=== PATIENT | female | born 1935 | race Caucasian/White ===

== ENCOUNTER → 2020-11-11 16:19 | Outpatient (CLI) | payer OTHER, SELFPAY ==
[2020-11-11 19:11] LABS: ALB/GLOB Ratio 1.1 RATIO (0.9-2.4); AST(SGOT) 25 U/L (15-37); Alanine Aminotransfer ALT/SGPT 29 U/L (13-56); Alkaline Phosphatase 103 U/L (45-117); Anion Gap 6 (5-15); BUN 23 mg/dL (7-18); BUN/Creat Ratio 20.5 RATIO (10-20); Calcium,Total 9.2 mg/dL (8.5-10.1); Chloride 106 mmol/L (98-107); Creatinine, Serum 1.12 mg/dL (0.55-1.02); EST Glomerular Filtration Rate 49 mL/min (>60); Est Glom Filt Rate - Afr Amer 60 mL/min (>60); Globulin 3.7 g/dL (2.2-4.2); Glucose 100 mg/dL (74-106); Potassium 4.2 mmol/L (3.5-5.1); Protein, Total 7.7 g/dL (6.4-8.2); Sodium Level 140 mmol/L (136-145); Thyroid Stim Hormone (TSH) 1.71 uIU/mL (0.358-3.74); Vitamin D,25 Hydroxy 28.8 ng/mL
[2020-11-11 19:42] LABS: Absolute Lymphocyte Count 3.37 X10^3/uL (0.83-4.51); Absolute Neutrophil Count 3.3 X10^3/uL (2.0-7.7); Basophil# 0.08 X10^3/uL; Eosinophils% 2.6 % (0-5); Hematocrit 40.1 % (37-47); Hemoglobin 12.4 g/dL (12.0-15.0); Lymphocyte # 3.37 X10^3/ul (0.83-4.51); Lymphocyte % 43.7 % (19-41); Mean Corp Hgb Conc 30.9 g/dL (32-36); Mean Corpuscular Hgb 28.8 pg (27.0-32.0); Mean Platelet Vol. 10.8 fl (6.2-12.0); Monocyte# 0.73 X10^3/uL; Monocyte% 9.5 % (0-10); NRBC Flagged by Analyzer 0 % (0-5); Neutrophil # 3.31 X10^3/uL (2.7-7.7); Neutrophil % 42.8 % (47-70); Platelet Count 274 K/mm3 (150-450); RBC Distribution Width CV 14.8 % (11.6-14.6); Red Blood Count 4.31 M/mm3 (4.2-5.4); White Blood Count 7.7 K/mm3 (4.4-11.0)
== END ==
PROVIDERS: Visit Provider Family Medicine Geriatric Medicine
DX: E55.9 Vitamin D deficiency, unspecified (principal); R53.83 Other fatigue
CPT/HCPCS: 36415; 80053; 82306; 84443; 85025

== ENCOUNTER → 2021-02-12 15:11 | Outpatient (CLI) | payer OTHER, SELFPAY ==
[2021-02-12 17:20] LABS: Absolute Lymphocyte Count 2.96 X10^3/uL (0.83-4.51); Absolute Neutrophil Count 3.4 X10^3/uL (2.0-7.7); Basophil# 0.06 X10^3/uL; Basophil% 0.8 % (0-1); Eosinophil# 0.22 X10^3/uL; Hematocrit 37.1 % (37-47); Lymphocyte # 2.96 X10^3/ul (0.83-4.51); Lymphocyte % 40.3 % (19-41); Mean Corp Hgb Conc 32.3 g/dL (32-36); Mean Corpuscular Hgb 30.2 pg (27.0-32.0); Mean Corpuscular Volume 93.2 fL (81-99); Mean Platelet Vol. 11.2 fl (6.2-12.0); Monocyte# 0.67 X10^3/uL; Monocyte% 9.1 % (0-10); NRBC Flagged by Analyzer 0 % (0-5); Neutrophil # 3.43 X10^3/uL (2.7-7.7); Neutrophil % 46.7 % (47-70); Platelet Count 217 K/mm3 (150-450); RBC Distribution Width CV 14.3 % (11.6-14.6); RBC Distribution Width SD 48.6 fl (35.1-43.9); Red Blood Count 3.98 M/mm3 (4.2-5.4); White Blood Count 7.4 K/mm3 (4.4-11.0)
[2021-02-12 17:51] LABS: ALB/GLOB Ratio 0.9 RATIO (0.9-2.4); AST(SGOT) 17 U/L (15-37); Alanine Aminotransfer ALT/SGPT 22 U/L (13-56); Albumin, Serum 3.5 g/dL (3.2-5.0); Alkaline Phosphatase 85 U/L (45-117); Anion Gap 4 (5-15); BUN 22 mg/dL (7-18); BUN/Creat Ratio 18.2 RATIO (10-20); Calcium,Total 8.6 mg/dL (8.5-10.1); Chloride 110 mmol/L (98-107); Creatinine, Serum 1.21 mg/dL (0.55-1.02); EST Glomerular Filtration Rate 45 mL/min (>60); Est Glom Filt Rate - Afr Amer 55 mL/min (>60); Globulin 3.7 g/dL (2.2-4.2); Glucose 94 mg/dL (74-106); Potassium 4.8 mmol/L (3.5-5.1); Protein, Total 7.2 g/dL (6.4-8.2); Sodium Level 141 mmol/L (136-145); Thyroid Stim Hormone (TSH) 2.72 uIU/mL (0.358-3.74)
[2021-02-13 09:09] LABS: Vitamin D,25 Hydroxy 20.4 ng/mL
== END ==
PROVIDERS: Visit Provider Family Medicine Geriatric Medicine
DX: I10 Essential (primary) hypertension (principal); E55.9 Vitamin D deficiency, unspecified
CPT/HCPCS: 36415; 80053; 82306; 84443; 85025

== ENCOUNTER 2021-05-13 13:12 | Outpatient (CLI) | payer OTHER, SELFPAY ==
[2021-05-13 13:42] LABS: Absolute Lymphocyte Count 2.35 X10^3/uL (0.83-4.51); Absolute Neutrophil Count 3.7 X10^3/uL (2.0-7.7); Basophil# 0.06 X10^3/uL; Basophil% 0.9 % (0-1); Eosinophil# 0.22 X10^3/uL; Eosinophils% 3.2 % (0-5); Hematocrit 39.2 % (37-47); Hemoglobin 13.1 g/dL (12.0-15.0); Lymphocyte # 2.35 X10^3/ul (0.83-4.51); Mean Corp Hgb Conc 33.4 g/dL (32-36); Mean Corpuscular Hgb 30.3 pg (27.0-32.0); Mean Corpuscular Volume 90.7 fL (81-99); Mean Platelet Vol. 10.7 fl (6.2-12.0); Monocyte# 0.55 X10^3/uL; NRBC Flagged by Analyzer 0 % (0-5); Neutrophil # 3.69 X10^3/uL (2.7-7.7); Neutrophil % 53.3 % (47-70); Platelet Count 235 K/mm3 (150-450); RBC Distribution Width CV 14.2 % (11.6-14.6); RBC Distribution Width SD 47.3 fl (35.1-43.9); Red Blood Count 4.32 M/mm3 (4.2-5.4); White Blood Count 6.9 K/mm3 (4.4-11.0)
--- NOTE | 2021-05-13 13:44 | RAD_ITS ---
STUDY: X-RAY - LEFT FOOT CLINICAL: Female, 85 years old. FOOT PAIN TECHNIQUE: 3 view(s) of the foot. COMPARISON: None. FINDINGS: Normal talus, calcaneus, and tarsal bones. Normal visualized subtalar, talonavicular, calcaneocuboid, tarsal and tarsometatarsal articulations. Normal metatarsi. 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 Normal tibial and fibular sesamoid bones. Normal interphalangeal joint of the great toe. Acute nondisplaced oblique fracture of the tibial aspect of the base of the first distal phalanx. Normal second through fifth metatarsophalangeal joints. Normal interphalangeal joints and phalanges of the lesser toes. The soft tissue structures are unremarkable. RAD/Foot min 3 Views IMPRESSION: Acute nondisplaced oblique fracture of the tibial aspect of the base of the first distal phalanx. Electronically Signed: Luiz Reynolds MD at 15:20 EST ,
[2021-05-13 14:23] LABS: AST(SGOT) 18 U/L (15-37); Alanine Aminotransfer ALT/SGPT 25 U/L (13-56); Albumin, Serum 3.8 g/dL (3.2-5.0); Alkaline Phosphatase 110 U/L (45-117); Anion Gap 7 (5-15); BUN 24 mg/dL (7-18); BUN/Creat Ratio 20.3 RATIO (10-20); Chloride 107 mmol/L (98-107); Creatinine, Serum 1.18 mg/dL (0.55-1.02); EST Glomerular Filtration Rate 46 mL/min (>60); Est Glom Filt Rate - Afr Amer 56 mL/min (>60); Globulin 3.9 g/dL (2.2-4.2); Glucose 144 mg/dL (74-106); Potassium 4.6 mmol/L (3.5-5.1); Protein, Total 7.7 g/dL (6.4-8.2); Sodium Level 142 mmol/L (136-145); Thyroid Stim Hormone (TSH) 4.24 uIU/mL (0.358-3.74)
== END 2021-05-13 23:59 | disposition home or self-care (01) ==
LOC: POLAB3 13:13 → RAD 13:42
PROVIDERS: PCP Family Medicine Geriatric Medicine; Referring Provider Family Medicine Geriatric Medicine; Visit Provider Family Medicine Geriatric Medicine
DX: S92.425A Nondisplaced fracture of distal phalanx of left great toe, initial encounter for closed fracture (principal); X58.XXXA Exposure to other specified factors, initial encounter; I10 Essential (primary) hypertension; E55.9 Vitamin D deficiency, unspecified
CPT/HCPCS: 36415; 73630; 80053; 82306; 84443; 85025

== ENCOUNTER 2021-06-12 11:47 | Outpatient (CLI) | payer OTHER, SELFPAY | END 2021-06-12 23:59 | disposition home or self-care (01) | LOC: LABSPEC 11:48 | PROVIDERS: PCP Family Medicine Geriatric Medicine; Visit Provider Internal Medicine Nephrology | DX: N18.32 Chronic kidney disease, stage 3b (principal) | CPT/HCPCS: 87077; 87086; 87088; 87186 ==

== ENCOUNTER 2021-06-26 09:32 | Outpatient (CLI) | payer OTHER, SELFPAY ==
[2021-06-26 11:18] LABS: Thyroid Stim Hormone (TSH) 1.61 uIU/mL (0.358-3.74)
== END 2021-06-26 23:59 | disposition home or self-care (01) ==
LOC: LAB 09:33
PROVIDERS: PCP Family Medicine Geriatric Medicine; Visit Provider Family Medicine Geriatric Medicine
DX: E03.9 Hypothyroidism, unspecified (principal)
CPT/HCPCS: 36415; 84443

== ENCOUNTER → 2021-09-05 | Outpatient (CLI) | payer OTHER, SELFPAY ==
[2021-09-05 10:14] LABS: Absolute Lymphocyte Count 1.58 X10^3/uL (0.83-4.51); Basophil# 0.06 X10^3/uL; Basophil% 1.1 % (0-1); Eosinophils% 3.7 % (0-5); Hematocrit 37.4 % (37-47); Hemoglobin 11.9 g/dL (12.0-15.0); Lymphocyte # 1.58 X10^3/ul (0.83-4.51); Lymphocyte % 29.2 % (19-41); Mean Corp Hgb Conc 31.8 g/dL (32-36); Mean Corpuscular Hgb 29.2 pg (27.0-32.0); Mean Corpuscular Volume 91.7 fL (81-99); Mean Platelet Vol. 10.8 fl (6.2-12.0); Monocyte# 0.56 X10^3/uL; Monocyte% 10.4 % (0-10); NRBC Flagged by Analyzer 0 % (0-5); Neutrophil # 2.99 X10^3/uL (2.7-7.7); Neutrophil % 55.2 % (47-70); Platelet Count 204 K/mm3 (150-450); RBC Distribution Width CV 14.1 % (11.6-14.6); RBC Distribution Width SD 47.9 fl (35.1-43.9); Red Blood Count 4.08 M/mm3 (4.2-5.4); White Blood Count 5.4 K/mm3 (4.4-11.0)
[2021-09-05 10:41] LABS: Vitamin D,25 Hydroxy 32.9 ng/mL
[2021-09-05 10:48] LABS: ALB/GLOB Ratio 0.9 RATIO (0.9-2.4); AST(SGOT) 18 U/L (15-37); Alanine Aminotransfer ALT/SGPT 25 U/L (13-56); Albumin, Serum 3.4 g/dL (3.2-5.0); Alkaline Phosphatase 83 U/L (45-117); Anion Gap 6 (5-15); BUN 27 mg/dL (7-18); BUN/Creat Ratio 24.8 RATIO (10-20); Calcium,Total 9.4 mg/dL (8.5-10.1); Chloride 111 mmol/L (98-107); Cholesterol 309 mg/dL (200); Creatinine, Serum 1.09 mg/dL (0.55-1.02); EST Glomerular Filtration Rate 51 mL/min (>60); Est Glom Filt Rate - Afr Amer 62 mL/min (>60); Globulin 3.6 g/dL (2.2-4.2); Glucose 95 mg/dL (74-106); High Density Lipoprotein 42 mg/dL; Phosphorus 3.5 mg/dL (2.5-4.9); Potassium 4.4 mmol/L (3.5-5.1); Sodium Level 141 mmol/L (136-145); Triglycerides 334 mg/dL; Very Low Density Lipoprotein 67 mg/dL (5-40)
[2021-09-05 10:49] LABS: PTHIN 11.2 pg/mL (18.4-80.1)
== END | disposition home or self-care (01) ==
LOC: LAB 09:11
PROVIDERS: PCP Family Medicine Geriatric Medicine; Visit Provider Internal Medicine Nephrology
DX: E55.9 Vitamin D deficiency, unspecified (principal); E78.5 Hyperlipidemia, unspecified; I10 Essential (primary) hypertension
CPT/HCPCS: 36415; 80053; 80061; 82306; 83970; 84100; 84443; 85025

== ENCOUNTER → 2021-09-15 | Outpatient (CLI) | payer OTHER, SELFPAY ==
--- NOTE | 2021-09-15 10:15 | RAD_ITS ---
STUDY: X-RAY - ESOPHAGUS (BARIUM SWALLOW) WITH FLUOROSCOPY REASON FOR EXAM: Female, 85 years old. BENIGN ESOPHAGEAL STRICTURE TECHNIQUE: 17 view(s) of the esophagus were obtained following swallowing of barium. FLUOROSCOPY TIME (if supplied): (24 seconds) minutes/seconds COMPARISON: None. FINDINGS: There is no demonstrated esophageal foreign body. There is no demonstrated stricture or mucosal abnormality. Small sliding hernia without gastroesophageal reflux. Weblike stenosis at the gastroesophageal junction. The patient ingested a 12 mm tablet of barium without difficulty. Normal visualized aortic arch and descending thoracic aorta. Normal visualized pulmonary parenchyma. Normal visualized osseous structures of the thorax. RAD/Esophagus Dual Contrast IMPRESSION: Weblike stenosis at the level of the gastroesophageal junction which is evidence of a small sliding hiatal hernia. No reflux is present. The patient ingested a 12 mm tablet of barium without any difficulty. Electronically Signed: Leon Cash MD at 14:47 EDT ,
== END | disposition home or self-care (01) ==
PROVIDERS: PCP Family Medicine Geriatric Medicine; Referring Provider Family Medicine Geriatric Medicine; Visit Provider Family Medicine Geriatric Medicine
DX: K22.2 Esophageal obstruction (principal)
CPT/HCPCS: 74221

== ENCOUNTER → 2021-11-19 | Outpatient (CLI) | payer OTHER, SELFPAY ==
[2021-11-19 17:22] LABS: Absolute Lymphocyte Count 2.59 X10^3/uL (0.83-4.51); Absolute Neutrophil Count 2.6 X10^3/uL (2.0-7.7); Basophil# 0.07 X10^3/uL; Basophil% 1.2 % (0-1); Eosinophil# 0.21 X10^3/uL; Eosinophils% 3.5 % (0-5); Hematocrit 37.8 % (37-47); Lymphocyte # 2.59 X10^3/ul (0.83-4.51); Lymphocyte % 43.4 % (19-41); Mean Corp Hgb Conc 31.7 g/dL (32-36); Mean Corpuscular Hgb 28.9 pg (27.0-32.0); Mean Corpuscular Volume 91.1 fL (81-99); Mean Platelet Vol. 11.2 fl (6.2-12.0); Monocyte# 0.52 X10^3/uL; Monocyte% 8.7 % (0-10); NRBC Flagged by Analyzer 0 % (0-5); Neutrophil # 2.57 X10^3/uL (2.7-7.7); Platelet Count 229 K/mm3 (150-450); RBC Distribution Width CV 14.5 % (11.6-14.6); RBC Distribution Width SD 48.8 fl (35.1-43.9); Red Blood Count 4.15 M/mm3 (4.2-5.4)
[2021-11-19 17:47] LABS: Vitamin D,25 Hydroxy 34.5 ng/mL
[2021-11-19 18:04] LABS: AST(SGOT) 24 U/L (15-37); Alanine Aminotransfer ALT/SGPT 26 U/L (13-56); Albumin, Serum 3.5 g/dL (3.2-5.0); Alkaline Phosphatase 88 U/L (45-117); Anion Gap 7 (5-15); BUN 19 mg/dL (7-18); Calcium,Total 8.5 mg/dL (8.5-10.1); Chloride 106 mmol/L (98-107); Creatinine, Serum 1.12 mg/dL (0.55-1.02); EST Glomerular Filtration Rate 49 mL/min (>60); Est Glom Filt Rate - Afr Amer 60 mL/min (>60); Globulin 3.6 g/dL (2.2-4.2); Glucose 107 mg/dL (74-106); Potassium 4.8 mmol/L (3.5-5.1); Protein, Total 7.1 g/dL (6.4-8.2); Sodium Level 139 mmol/L (136-145); Thyroid Stim Hormone (TSH) 0.11 uIU/mL (0.358-3.74)
== END | disposition home or self-care (01) ==
LOC: POLAB3 13:25
PROVIDERS: PCP Family Medicine Geriatric Medicine; Visit Provider Family Medicine Geriatric Medicine
DX: E55.9 Vitamin D deficiency, unspecified (principal); I10 Essential (primary) hypertension
CPT/HCPCS: 36415; 80053; 82306; 84443; 85025

== ENCOUNTER → 2022-01-07 | Outpatient (CLI) | payer OTHER, SELFPAY ==
[2022-01-07 18:06] LABS: Thyroid Stim Hormone (TSH) 3.21 uIU/mL (0.358-3.74)
== END | disposition home or self-care (01) ==
LOC: POLAB3 15:24
PROVIDERS: PCP Family Medicine Geriatric Medicine; Visit Provider Family Medicine Geriatric Medicine
DX: E03.9 Hypothyroidism, unspecified (principal); N39.0 Urinary tract infection, site not specified
CPT/HCPCS: 36415; 84443; 87086; 87088; 87186

== ENCOUNTER → 2022-05-20 | Outpatient (CLI) | payer OTHER, SELFPAY ==
[2022-05-20 17:42] LABS: Absolute Lymphocyte Count 3.11 X10^3/uL (0.83-4.51); Absolute Neutrophil Count 4.5 X10^3/uL (2.0-7.7); Basophil# 0.07 X10^3/uL; Basophil% 0.8 % (0-1); Eosinophil# 0.39 X10^3/uL; Eosinophils% 4.4 % (0-5); Hematocrit 41.7 % (37-47); Hemoglobin 13.2 g/dL (12.0-15.0); Lymphocyte # 3.11 X10^3/ul (0.83-4.51); Lymphocyte % 35.4 % (19-41); Mean Corp Hgb Conc 31.7 g/dL (32-36); Mean Corpuscular Hgb 28.8 pg (27.0-32.0); Monocyte# 0.74 X10^3/uL; Monocyte% 8.4 % (0-10); NRBC Flagged by Analyzer 0 % (0-5); Neutrophil # 4.45 X10^3/uL (2.7-7.7); Neutrophil % 50.7 % (47-70); Platelet Count 269 K/mm3 (150-450); Red Blood Count 4.58 M/mm3 (4.2-5.4); White Blood Count 8.8 K/mm3 (4.4-11.0)
[2022-05-20 18:23] LABS: AST(SGOT) 25 U/L (15-37); Alanine Aminotransfer ALT/SGPT 25 U/L (13-56); Albumin, Serum 3.9 g/dL (3.2-5.0); Alkaline Phosphatase 90 U/L (45-117); Anion Gap 6 (5-15); BUN 23 mg/dL (7-18); BUN/Creat Ratio 15.2 RATIO (10-20); Calcium,Total 9.1 mg/dL (8.5-10.1); Chloride 104 mmol/L (98-107); Creatinine, Serum 1.51 mg/dL (0.55-1.02); EST Glomerular Filtration Rate 35 mL/min (>60); Est Glom Filt Rate - Afr Amer 42 mL/min (>60); Glucose 97 mg/dL (74-106); Potassium 5.2 mmol/L (3.5-5.1); Protein, Total 7.9 g/dL (6.4-8.2); Sodium Level 139 mmol/L (136-145)
[2022-05-20 18:57] LABS: Vitamin D,25 Hydroxy 25.6 ng/mL
== END | disposition home or self-care (01) ==
LOC: POLAB3 13:55
PROVIDERS: PCP Family Medicine Geriatric Medicine; Visit Provider Family Medicine Geriatric Medicine
DX: E55.9 Vitamin D deficiency, unspecified (principal); I10 Essential (primary) hypertension
CPT/HCPCS: 36415; 80053; 82306; 84443; 85025

== ENCOUNTER → 2022-05-22 | Outpatient (CLI) | payer OTHER, SELFPAY ==
[2022-05-22 14:00] LABS: Anion Gap 6 (5-15); BUN 29 mg/dL (7-18); BUN/Creat Ratio 21.3 RATIO (10-20); Chloride 108 mmol/L (98-107); Creatinine, Serum 1.36 mg/dL (0.55-1.02); EST Glomerular Filtration Rate 39 mL/min (>60); Est Glom Filt Rate - Afr Amer 48 mL/min (>60); Glucose 126 mg/dL (74-106); Potassium 4.4 mmol/L (3.5-5.1); Sodium Level 142 mmol/L (136-145)
== END | disposition home or self-care (01) ==
LOC: LAB 13:19
PROVIDERS: PCP Family Medicine Geriatric Medicine; Referring Provider Family Medicine Geriatric Medicine; Visit Provider Family Medicine Geriatric Medicine
DX: E87.5 Hyperkalemia (principal)
CPT/HCPCS: 36415; 80048

== ENCOUNTER → 2022-07-02 | Outpatient (CLI) | payer OTHER, SELFPAY | END | disposition home or self-care (01) | LOC: LAB 09:59 | PROVIDERS: PCP Family Medicine Geriatric Medicine; Referring Provider Family Medicine Geriatric Medicine; Visit Provider Family Medicine Geriatric Medicine | DX: E03.9 Hypothyroidism, unspecified (principal) | CPT/HCPCS: 36415; 84443 ==

== ENCOUNTER → 2022-07-10 | Outpatient (CLI) | payer OTHER, SELFPAY | END | disposition home or self-care (01) | PROVIDERS: PCP Family Medicine Geriatric Medicine; Referring Provider Family Medicine Geriatric Medicine; Visit Provider Family Medicine Geriatric Medicine | DX: R68.83 Chills (without fever) (principal) | CPT/HCPCS: 87635; 87804; 87807; U0003; U0005 ==

== ENCOUNTER → 2022-07-14 | Outpatient (CLI) | payer OTHER, SELFPAY ==
--- NOTE | 2022-07-14 12:32 | RAD_ITS ---
INDICATION: ABDOMINAL PAIN EXAMINATION/TECHNIQUE: X-RAY - XR Abdomen W/ Decub and/or Erect Views COMPARISON: None FINDINGS: BOWEL GAS PATTERN: Non-obstructive. No bowel or stomach distention. FREE AIR: Not assessed on a single supine view. ORGANOMEGALY: Not seen. CALCIFICATIONS: No abnormal calcifications observed. LOWER CHEST: No acute pathology. BONES AND SOFT TISSUES: No acute pathology. Degenerative changes of the visualized spine. RAD/Abd Inc Decub and/or Erect IMPRESSION: Non-obstructive bowel gas pattern. Electronically Signed: Balaji Sheppard MD at 19:42 EDT ,
[2022-07-14 13:10] LABS: Absolute Lymphocyte Count 2.49 X10^3/uL (0.83-4.51); Absolute Neutrophil Count 10.4 X10^3/uL (2.0-7.7); Basophil# 0.04 X10^3/uL; Basophil% 0.3 % (0-1); Eosinophil# 0.07 X10^3/uL; Eosinophils% 0.5 % (0-5); Hematocrit 44.5 % (37-47); Hemoglobin 13.9 g/dL (12.0-15.0); Lymphocyte # 2.49 X10^3/ul (0.83-4.51); Lymphocyte % 17.9 % (19-41); Mean Corp Hgb Conc 31.2 g/dL (32-36); Mean Corpuscular Hgb 29.1 pg (27.0-32.0); Mean Corpuscular Volume 93.1 fL (81-99); Monocyte% 5.8 % (0-10); NRBC Flagged by Analyzer 0 % (0-5); Neutrophil # 10.36 X10^3/uL (2.7-7.7); Neutrophil % 74.6 % (47-70); Platelet Count 291 K/mm3 (150-450); RBC Distribution Width CV 14.9 % (11.6-14.6); RBC Distribution Width SD 51.3 fl (35.1-43.9); Red Blood Count 4.78 M/mm3 (4.2-5.4); White Blood Count 13.9 K/mm3 (4.4-11.0)
[2022-07-14 13:48] LABS: ALB/GLOB Ratio 1.1 RATIO (0.9-2.4); AST(SGOT) 20 U/L (15-37); Alanine Aminotransfer ALT/SGPT 26 U/L (13-56); Albumin, Serum 3.9 g/dL (3.2-5.0); Alkaline Phosphatase 81 U/L (45-117); Anion Gap 1 (5-15); BUN 24 mg/dL (7-18); BUN/Creat Ratio 19.4 RATIO (10-20); Calcium,Total 9.2 mg/dL (8.5-10.1); Chloride 106 mmol/L (98-107); Creatinine, Serum 1.24 mg/dL (0.55-1.02); EST Glomerular Filtration Rate 44 mL/min (>60); Est Glom Filt Rate - Afr Amer 53 mL/min (>60); Globulin 3.5 g/dL (2.2-4.2); Glucose 120 mg/dL (74-106); Potassium 4.6 mmol/L (3.5-5.1); Protein, Total 7.4 g/dL (6.4-8.2); Sodium Level 139 mmol/L (136-145)
== END | disposition home or self-care (01) ==
PROVIDERS: PCP Family Medicine Geriatric Medicine; Referring Provider Family Medicine Geriatric Medicine; Visit Provider Family Medicine Geriatric Medicine
DX: R10.9 Unspecified abdominal pain (principal)
CPT/HCPCS: 36415; 74019; 80053; 85025

== ENCOUNTER → 2022-08-20 | Outpatient (CLI) | payer OTHER, SELFPAY ==
[2022-08-20 10:59] LABS: Thyroid Stim Hormone (TSH) 1.98 uIU/mL (0.358-3.74)
[2022-08-20 11:05] LABS: Homocysteine 11.4 umol/L (3.2-10.7)
[2022-08-26 12:09] LABS: Methylmalonic Acid Bld 219 nmol/L (0-378)
== END | disposition home or self-care (01) ==
LOC: LAB 09:58
PROVIDERS: PCP Family Medicine Geriatric Medicine; Referring Provider Family Medicine Geriatric Medicine; Visit Provider Family Medicine Geriatric Medicine
DX: E03.9 Hypothyroidism, unspecified (principal); E53.8 Deficiency of other specified B group vitamins
CPT/HCPCS: 36415; 83090; 83921; 84443

== ENCOUNTER → 2022-11-25 | Outpatient (CLI) | payer OTHER, SELFPAY ==
[2022-11-25 15:28] LABS: Absolute Lymphocyte Count 2.33 X10^3/uL (0.83-4.51); Basophil# 0.06 X10^3/uL; Basophil% 0.8 % (0-1); Eosinophil# 0.24 X10^3/uL; Eosinophils% 3.3 % (0-5); Hematocrit 39.1 % (37-47); Hemoglobin 12.5 g/dL (12.0-15.0); Lymphocyte # 2.33 X10^3/ul (0.83-4.51); Lymphocyte % 32.1 % (19-41); Mean Corpuscular Hgb 29.2 pg (27.0-32.0); Mean Corpuscular Volume 91.4 fL (81-99); Monocyte# 0.64 X10^3/uL; Monocyte% 8.8 % (0-10); NRBC Flagged by Analyzer 0 % (0-5); Neutrophil # 3.97 X10^3/uL (2.7-7.7); Neutrophil % 54.7 % (47-70); Platelet Count 218 K/mm3 (150-450); RBC Distribution Width CV 14.6 % (11.6-14.6); RBC Distribution Width SD 48.4 fl (35.1-43.9); Red Blood Count 4.28 M/mm3 (4.2-5.4); White Blood Count 7.3 K/mm3 (4.4-11.0)
[2022-11-25 15:42] LABS: ALB/GLOB Ratio 1.1 RATIO (0.9-2.4); AST(SGOT) 21 U/L (15-37); Alanine Aminotransfer ALT/SGPT 24 U/L (13-56); Albumin, Serum 3.6 g/dL (3.2-5.0); Alkaline Phosphatase 96 U/L (45-117); Anion Gap 8 (5-15); BUN 18 mg/dL (7-18); BUN/Creat Ratio 15.9 RATIO (10-20); Calcium,Total 8.7 mg/dL (8.5-10.1); Chloride 111 mmol/L (98-107); Creatinine, Serum 1.13 mg/dL (0.55-1.02); EST Glomerular Filtration Rate 49 mL/min (>60); Est Glom Filt Rate - Afr Amer 59 mL/min (>60); Globulin 3.3 g/dL (2.2-4.2); Glucose 120 mg/dL (74-106); Potassium 4.7 mmol/L (3.5-5.1); Protein, Total 6.9 g/dL (6.4-8.2); Sodium Level 144 mmol/L (136-145); Thyroid Stim Hormone (TSH) 1.08 uIU/mL (0.358-3.74)
== END | disposition home or self-care (01) ==
LOC: POLAB3 13:39
PROVIDERS: PCP Family Medicine Geriatric Medicine; Visit Provider Family Medicine Geriatric Medicine
DX: I10 Essential (primary) hypertension (principal); E55.9 Vitamin D deficiency, unspecified
CPT/HCPCS: 36415; 80053; 82306; 84443; 85025

== ENCOUNTER → 2023-04-28 | Outpatient (CLI) | payer OTHER, SELFPAY ==
--- NOTE | 2023-04-28 10:30 | RAD_ITS ---
INDICATION: LOWER ABD PAIN EXAMINATION/TECHNIQUE: X-RAY - XR Spine Lumbar Min 4 Views COMPARISON: None. FINDINGS: VERTEBRAE: Preserved vertebral body height. No acute fracture. 2 mm retrolisthesis L2 on L3, 4 mm spondylolisthesis L4 on L5. Preservation of the normal lumbar lordosis. DISCS: Severe degenerative disc space loss L3-4, L4-5 and L5-S1. INCLUDED ABDOMEN: Included bowel gas pattern is non-obstructive. RAD/L/S Spine Min 4 Views IMPRESSION: Degenerative disc disease from L2-3 through L5-S1. No acute bony abnormality. Electronically Signed: Waldemar Carrington MD at 0:42 EST ,
--- NOTE | 2023-04-28 10:30 | RAD_ITS ---
INDICATION: PAIN R HIP EXAMINATION/TECHNIQUE: X-RAY - XR Hip Unilateral with Pelvis when performed; 2-3 Views COMPARISON: Prior study dated: 07/14/2022 FINDINGS: PELVIC BONES: No displaced fracture, destructive or sclerotic lesions. Note that overlapping bowel shadows may however obscure fine detail. Sacroiliac joints are unremarkable. Stable mild widening of the pubic symphysis with sclerotic changes. HIPS: Hip joint spaces well-maintained bilaterally. No acute fracture. SOFT TISSUES: No soft tissue swelling or gas. RAD/HIP, UNI W/ Pelvis 2-3 Views IMPRESSION: Stable examination. No acute bony abnormality or significant hip arthropathy. Electronically Signed: Waldemar Carrington MD at 23:12 EST ,
--- NOTE | 2023-04-28 10:30 | RAD_ITS ---
INDICATION: PAIN EXAMINATION/TECHNIQUE: X-RAY - RIGHT XR Knee 3 Views 3 VIEWS COMPARISON: None. FINDINGS: SOFT TISSUES: No soft tissue swelling or gas. No radiopaque foreign body. BONES/JOINTS: No acute fracture. Joint spaces anatomically aligned with mild degenerative changes. No sclerotic or destructive changes observed. RAD/Knee 3 Views IMPRESSION: Mild tricompartmental degenerative changes. Electronically Signed: Waldemar Carrington MD at 0:39 EST ,
--- OUTSIDE RECORDS SUMMARY | 2023-04-28 10:39 | XMS RPT_ITS | CCD ---
Author Name Unknown Address [facility] [id number] [place] [address] Organization [facility] Care Team Providers Care Ballet Soloist Name Role Phone Unavailable Primary Care Provider Unavailabl e Results Test Name Value Interpretation Reference Range Facil ity Encounters Encounter Date Encounter Type Care Provider Facility Start: 07-24-2020 End: 07-24-2020 Nursing evaluation of patient and report Covid Vaccine [facility] COVID Vaccine Procedures Date Procedure Procedure Detail Performing Clinician Start: 07-24-2020 MODERNA COVID-19 VACCINE Luis Rosas Work Phone: Plan of Treatment Date Care Activity Detail Author Start: 12-04-2020 Influenza vaccination INFLUENZA (Sea son Ended) [facility] Start: 08-21-2020 COVID-19 VACCINE (2 - Moderna 2-dose series) COVID-19 VACCINE (2 - Moderna 2-dose series) [facility] Start: 08-21-2020 MODERNA SARS-COV-2 V ACCINE 2ND DOSE APPT MODERNA SARS-COV-2 VACCINE 2ND DOSE APPT Procedures Routine Expected: 08/21/2020 [facility] Immunizations Immunization Date Immunization Notes Care Provider Jose oleary 07-24-2020 COVID-19 vaccine (MODERNA) Covid Bat h [facility] Payers Date Payer Category Payer Private Health Insurance [facility] [employer] [id number] 2014-Present HMO [id number] Social History Date Type Detail Facility Tobacco smoking status NHIS Unknown if ev er smoked [facility] Start: 1935 Sex Assigned At Not on file [facility] Exposure to SARS-CoV -2 (event) Not sure [facility] Summary Purpose Family History No Family History Records FoundNo Family History Records FoundNo Family History Records Found Advance Directives No Advanced Directives Records FoundNo Advanced Directives Records FoundNo Advanced Directives Records Found Hospital Course Note Discharge Diagnosis and Plan 1. Postoperative hypertension The patient manifested significant hypertension after surgery, however this maintained longer than usual postop hypertension. Recently, the patient's primary care physician had increased her lovastatin to 200 mg a day. The PhD in pharmacy that reviewed the order recommended dropping down to 100 mg/day. This advice was taken and the patient was started on amlodipine 5 mg p.o. daily. The patient's blood pressures oscillated between 133 and 170 on that medication. Close observation and avoidance of supratherapeutic doses of losartan are recommended. 2. Displaced transverse fracture of right patella, initial encounter for closed fracture Open reduction internal fixation was carried out 2 days prior to discharge. Patient tolerated this well and was able to one half weight- bear as instructed by orthopedic surgery. She will continue with physical and occupational therapy at home. 3. Benign essential tremor Propranolol is being used t (more content not included)... Additional Source Comments INFORMATION SOURCE (unrecogn ized section and content) DATE CREATED AUTHOR AUTHOR'S ORGANIZ ATION 07/16/2020 [facility] DATE CREATED AUTHOR AUTHOR'S ORGANIZ ATION 07/29/2020 [facility] Source Comments (unrecognize d section and content) In the event this informatio n is protected by the Federal Confidentiality of Alcohol and Drug Abuse Patient Records regulations: The Federal rules restrict any use of the information to criminally investigate or prosecute any alcohol or drug abuse patient.[facility] FOR RECORDS PERTAINING TO PATIENTS WHO ARE OR HAVE BEEN ENROLLED IN A CHEMICAL DEPENDENCY/SUBSTANCEABUSE PROGRAM, SOME INFORMATION MAY BE OMITTED. This clinical summary was aggregated from multiple sources. Caution should be exercised in using it in the provision of clinical care. This summary normalizes information from multiple sources, and as a consequence, information in this document may materially change the coding, format and clinical context of patient data. In addition, data may be omitted in some cases. CLINICAL DECISIONS SHOULD BE BASED ON THE PRIMARY CLINICAL RECORDS. [email or web address] [facility]. provides no warranty or guarantee of the accuracy or completeness of information in this document.
== END | disposition home or self-care (01) ==
LOC: RAD 10:22
PROVIDERS: PCP Family Medicine Geriatric Medicine; Referring Provider Family Medicine Geriatric Medicine; Visit Provider Family Medicine Geriatric Medicine
DX: M25.551 Pain in right hip (principal); M25.561 Pain in right knee; R10.30 Lower abdominal pain, unspecified
CPT/HCPCS: 72110; 73502; 73562

== ENCOUNTER → 2023-05-26 | Outpatient (CLI) | payer OTHER, SELFPAY ==
[2023-05-26 16:09] LABS: Absolute Lymphocyte Count 3.03 X10^3/uL (0.83-4.51); Basophil# 0.07 X10^3/uL; Basophil% 0.7 % (0-1); Eosinophil# 0.11 X10^3/uL; Eosinophils% 1.1 % (0-5); Hematocrit 44.2 % (37-47); Hemoglobin 13.7 g/dL (12.0-15.0); Lymphocyte # 3.03 X10^3/ul (0.83-4.51); Lymphocyte % 30.2 % (19-41); Mean Corpuscular Volume 93.4 fL (81-99); Monocyte# 0.75 X10^3/uL; Monocyte% 7.5 % (0-10); NRBC Flagged by Analyzer 0 % (0-5); Neutrophil # 6.04 X10^3/uL (2.7-7.7); Neutrophil % 60.3 % (47-70); Platelet Count 292 K/mm3 (150-450); RBC Distribution Width CV 15.9 % (11.6-14.6); RBC Distribution Width SD 54.5 fl (35.1-43.9); Red Blood Count 4.73 M/mm3 (4.2-5.4)
[2023-05-26 16:23] LABS: Vitamin D,25 Hydroxy 27.2 ng/mL
[2023-05-26 16:29] LABS: AST(SGOT) 22 U/L (15-37); Alanine Aminotransfer ALT/SGPT 27 U/L (13-56); Albumin, Serum 3.8 g/dL (3.2-5.0); Alkaline Phosphatase 91 U/L (45-117); Anion Gap 6 (5-15); BUN 22 mg/dL (7-18); BUN/Creat Ratio 16.4 RATIO (10-20); Calcium,Total 9.2 mg/dL (8.5-10.1); Chloride 107 mmol/L (98-107); Creatinine, Serum 1.34 mg/dL (0.55-1.02); EST Glomerular Filtration Rate 40 mL/min (>60); Est Glom Filt Rate - Afr Amer 48 mL/min (>60); Globulin 3.7 g/dL (2.2-4.2); Glucose 150 mg/dL (74-106); Protein, Total 7.5 g/dL (6.4-8.2); Sodium Level 142 mmol/L (136-145)
== END | disposition home or self-care (01) ==
LOC: POLAB3 13:21
PROVIDERS: PCP Family Medicine Geriatric Medicine; Visit Provider Family Medicine Geriatric Medicine
DX: I10 Essential (primary) hypertension (principal); E55.9 Vitamin D deficiency, unspecified
CPT/HCPCS: 36415; 80053; 82306; 84443; 85025

== ENCOUNTER → 2023-11-30 | Outpatient (CLI) | payer OTHER, SELFPAY ==
[2023-11-30 13:36] LABS: Absolute Lymphocyte Count 2.65 X10^3/uL (0.83-4.51); Absolute Neutrophil Count 4.4 X10^3/uL (2.0-7.7); Basophil# 0.08 X10^3/uL; Eosinophil# 0.35 X10^3/uL; Eosinophils% 4.2 % (0-5); Hematocrit 39.4 % (37-47); Hemoglobin 12.5 g/dL (12.0-15.0); Lymphocyte # 2.65 X10^3/ul (0.83-4.51); Lymphocyte % 32.1 % (19-41); Mean Corp Hgb Conc 31.7 g/dL (32-36); Mean Corpuscular Hgb 29.2 pg (27.0-32.0); Mean Corpuscular Volume 92.1 fL (81-99); Mean Platelet Vol. 10.6 fl (6.2-12.0); Monocyte# 0.76 X10^3/uL; Monocyte% 9.2 % (0-10); NRBC Flagged by Analyzer 0 % (0-5); Neutrophil # 4.38 X10^3/uL (2.7-7.7); Neutrophil % 53.1 % (47-70); Platelet Count 221 K/mm3 (150-450); RBC Distribution Width CV 14.8 % (11.6-14.6); RBC Distribution Width SD 49.8 fl (35.1-43.9); Red Blood Count 4.28 M/mm3 (4.2-5.4); White Blood Count 8.3 K/mm3 (4.4-11.0)
[2023-11-30 14:18] LABS: Vitamin D,25 Hydroxy 28.9 ng/mL
[2023-11-30 15:27] LABS: ALB/GLOB Ratio 0.9 RATIO (0.9-2.4); AST(SGOT) 32 U/L (15-37); Alanine Aminotransfer ALT/SGPT 24 U/L (13-56); Albumin, Serum 3.4 g/dL (3.2-5.0); Alkaline Phosphatase 103 U/L (45-117); Anion Gap 6 (5-15); BUN 16 mg/dL (7-18); BUN/Creat Ratio 16.7 RATIO (10-20); Chloride 108 mmol/L (98-107); Creatinine, Serum 0.96 mg/dL (0.55-1.02); EST Glomerular Filtration Rate 59 mL/min (>60); Est Glom Filt Rate - Afr Amer 71 mL/min (>60); Globulin 3.6 g/dL (2.2-4.2); Glucose 142 mg/dL (74-106); Potassium 4.8 mmol/L (3.5-5.1); Sodium Level 141 mmol/L (136-145); Thyroid Stim Hormone (TSH) 0.888 uIU/mL (0.358-3.740)
[2023-12-01 14:20] LABS: Hemoglobin A1c 5.5 % (3.8-5.6)
== END | disposition home or self-care (01) ==
LOC: POLAB3 13:10
PROVIDERS: PCP Family Medicine Geriatric Medicine; Visit Provider Family Medicine Geriatric Medicine
DX: R73.09 Other abnormal glucose (principal); E55.9 Vitamin D deficiency, unspecified
CPT/HCPCS: 36415; 80053; 82306; 83036; 84443; 85025

== ENCOUNTER → 2024-05-31 | Outpatient (CLI) | payer OTHER, SELFPAY ==
[2024-05-31 13:20] LABS: Absolute Lymphocyte Count 2.84 X10^3/uL (0.83-4.51); Absolute Neutrophil Count 4.3 X10^3/uL (2.0-7.7); Basophil# 0.09 X10^3/uL; Basophil% 1.1 % (0-1); Eosinophil# 0.28 X10^3/uL; Eosinophils% 3.3 % (0-5); Hemoglobin 13.5 g/dL (12.0-15.0); Lymphocyte # 2.84 X10^3/ul (0.83-4.51); Lymphocyte % 33.9 % (19-41); Mean Corp Hgb Conc 32.1 g/dL (32-36); Mean Corpuscular Hgb 29.9 pg (27.0-32.0); Mean Corpuscular Volume 93.1 fL (81-99); Mean Platelet Vol. 10.9 fl (6.2-12.0); Monocyte# 0.81 X10^3/uL; Monocyte% 9.7 % (0-10); NRBC Flagged by Analyzer 0 % (0-5); Neutrophil # 4.32 X10^3/uL (2.7-7.7); Neutrophil % 51.6 % (47-70); Platelet Count 240 K/mm3 (150-450); RBC Distribution Width CV 14.3 % (11.6-14.6); RBC Distribution Width SD 48.5 fl (35.1-43.9); Red Blood Count 4.51 M/mm3 (4.2-5.4); White Blood Count 8.4 K/mm3 (4.4-11.0)
[2024-05-31 14:17] LABS: Cholesterol 327 mg/dL (<=200); High Density Lipoprotein 54 mg/dL; Low Density Lipoprotein Calc. 180 mg/dL; Triglycerides 467 mg/dL; Very Low Density Lipoprotein 93 mg/dL (5-40); Vitamin D,25 Hydroxy 35.6 ng/mL (30-100)
[2024-05-31 14:19] LABS: ALB/GLOB Ratio 1.6 RATIO (0.9-2.4); AST(SGOT) 24 U/L (<=31); Alanine Aminotransfer ALT/SGPT 15 U/L (<=34); Albumin, Serum 4.3 g/dL (3.4-4.8); Alkaline Phosphatase 98 U/L (35-104); Anion Gap 11 (5-15); BUN 19 mg/dL (4-19); BUN/Creat Ratio 19.7 RATIO (10-20); Calcium 9.4 mg/dL (7.6-11.0); Carbon Dioxide 24.8 mmol/L (22.0-29.0); Chloride 105 mmol/L (96-108); Creatinine, Serum 0.9 mg/dL (0.6-1.0); EST Glomerular Filtration Rate 59 (>60); Globulin 2.7 g/dL (2.2-4.2); Glucose 133 mg/dL (70-99); Potassium 5.5 mmol/L (3.3-5.1); Sodium Level 140 mmol/L (133-145); Total Bilirubin 0.32 mg/dL (0.00-1.30)
== END | disposition home or self-care (01) ==
LOC: POLAB3 13:01
PROVIDERS: PCP Family Medicine Geriatric Medicine; Visit Provider Family Medicine Geriatric Medicine
DX: R68.83 Chills (without fever) (principal); I10 Essential (primary) hypertension; E55.9 Vitamin D deficiency, unspecified; E78.5 Hyperlipidemia, unspecified
CPT/HCPCS: 36415; 80053; 80061; 82306; 84443; 85025; 87631

== ENCOUNTER → 2024-06-02 | Outpatient (CLI) | payer OTHER, SELFPAY ==
[2024-06-02 16:22] LABS: Anion Gap 12 (5-15); BUN 22 mg/dL (4-19); BUN/Creat Ratio 20.3 RATIO (10-20); Calcium 9.5 mg/dL (7.6-11.0); Carbon Dioxide 25.1 mmol/L (22.0-29.0); Chloride 105 mmol/L (96-108); Creatinine, Serum 1.06 mg/dL (0.70-1.20); EST Glomerular Filtration Rate 51 (>60); Glucose 130 mg/dL (70-99); Potassium 4.8 mmol/L (3.3-5.1); Sodium Level 143 mmol/L (133-145)
== END | disposition home or self-care (01) ==
LOC: LAB 14:19
PROVIDERS: PCP Family Medicine Geriatric Medicine; Referring Provider Family Medicine Geriatric Medicine; Visit Provider Family Medicine Geriatric Medicine
DX: I10 Essential (primary) hypertension (principal)
CPT/HCPCS: 36415; 80048

== ENCOUNTER → 2024-11-30 | Outpatient (CLI) | payer OTHER, SELFPAY ==
[2024-11-30 13:14] LABS: Hematocrit 40.5 % (37-47); Hemoglobin 13.5 g/dL (12.0-15.0); Immature Granulocytes Count 0.040 X10^3/uL (0.0-0.0); Mean Corp Hgb Conc 33.3 g/dL (32-36); Mean Corpuscular Volume 90.8 fL (81-99); Mean Platelet Vol. 10.4 fl (6.2-12.0); NRBC Flagged by Analyzer 0 % (0-5); Platelet Count 252 K/mm3 (150-450); RBC Distribution Width CV 14.4 % (11.6-14.6); RBC Distribution Width SD 47.6 fl (35.1-43.9); Red Blood Count 4.46 M/mm3 (4.2-5.4); White Blood Count 9.5 K/mm3 (4.4-11.0)
[2024-11-30 14:04] LABS: AST(SGOT) 25 U/L (<=31); Alanine Aminotransfer ALT/SGPT 13 U/L (<=34); Albumin, Serum 4.3 g/dL (3.4-4.8); Alkaline Phosphatase 96 U/L (35-104); Anion Gap 12 (5-15); BUN 15 mg/dL (4-19); BUN/Creat Ratio 15.7 RATIO (10-20); Calcium,Total 9.7 mg/dL (7.6-11.0); Carbon Dioxide 23.3 mmol/L (21.0-32.0); Chloride 105 mmol/L (98-108); Cholesterol 297 mg/dL (<=200); Globulin 2.8 g/dL (2.2-4.2); Glucose 117 mg/dL (70-99); Low Density Lipoprotein Calc. 189 mg/dL; Potassium 5.7 mmol/L (3.3-5.1); Triglycerides 294 mg/dL; Very Low Density Lipoprotein 59 mg/dL (5-40); Vitamin D,25 Hydroxy 40.7 ng/mL (30-100); cholesterol:hdl ratio screen 6.02
--- OUTSIDE RECORDS SUMMARY | 2024-11-30 19:06 | XMS RPT_ITS | CCD ---
Author Organization [facility] Care Team Providers Care Worm Picker Name Role Phone Unavailable Primary Care Provider Unavailabl e Gricel, Andrew Chi Attending Unavailable Gricel, Andrew Chi Primary Care Unavailable Gricel, Andrew Chi Attending Unavailable Gricel, Andrew Chi Primary Care Unavailable Gricel, Andrew Chi Primary Care Unavailable Gricel, Andrew Chi Referring Unavailable Gricel, Andrew Chi Attending Unavailable Gricel, Andrew Chi Attending Unavailable Gricel, Andrew Chi Primary Care Unavailable Gricel, Andrew Chi Referring Unavailable Gricel DEL CID, Dr. Andrew Acharya Primary Care Provider Gricel DEL CID, Dr. Andrew Acharya Attending Provider Gricel DEL CID, Dr. Andrew Acharya Referring Provider Medications Current Medications Medication Drug Class(es) Dates Sig (Normalized) Sig (Original) clonazePAM 1 mg oral tablet (10 sources) Benzodiazepine Start: 10-01-2021 take 1 tablet by mouth once daily Clonazepam 1 mg tablet Active 1 mg PO DAILY October 01, 2021 12:00am levothyroxine sodium 0.112 mg oral capsule (10 sources) l-Thyroxine Start: 10-01-2021 take 1 capsule by mouth once daily Levothyroxine 112 mcg capsule Active 112 ug PO DAILY October 01, 2021 12:00am losartan potassium 100 mg oral tablet (10 sources) Angiotensin 2 Receptor Cassandra Start: 10-01-2021 take 1 tablet by mouth once daily Losartan 100 mg tablet Active 100 mg PO DAILY October 01, 2021 12:00am pantoprazole 20 mg delayed release oral tablet (10 sources) Proton Pump Inhibitor Start: 10-01-2021 take 1 tablet by mouth once daily Pantoprazole 20 mg tablet,delayed release (DR/EC) Active 20 mg PO DAILY October 01, 2021 12:00am propranolol hydrochloride 20 mg oral tablet (10 sources) beta-Adrenergic Cassandra Start: 10-01-2021 take 1 tablet by mouth once Propranolol 20 mg tablet Active 20 mg PO ONCE October 01, 2021 12:00am QUEtiapine 100 mg oral tablet (10 sources) Atypical Antipsychotic Start: 10-01-2021 take 1 tablet by mouth once daily Quetiapine 100 mg tablet Active 100 mg PO DAILY October 01, 2021 12:00am Problems Active Problems Problem Classification Problem Date Documented Da te Episodic/Chronic Essential hypertension (1 source) Essential (primary) hypertension; Translations: [Essential (primary) hypertension] Onset: 06-15-2024 Chronic Residual codes; unclassified (1 source) Chills (without fever); Translations: [Chills (without fever)] Onset: 06-15-2024 Episodic Past or Other Problems Problem Classification Problem Date Documented Da te Episodic/Chronic Diabetes mellitus without complication (1 source) Other abnormal glucose; Translations: [Other abnormal glucose] Onset: 12-14-2023 Episodic Other gastrointestinal disorders (1 source) Dysphagia, unspecified; Translations: [Dysphagia, unspecified] Onset: 07-15-2023 Episodic Results Test Name Value Interpretation Reference Range Facility BUN/creatinine ratioOrdered By: Andrew Carter on 06-02-2024 Urea nitrogen/Creatinine [Mass ratio] 20.3 mg/mg [address] Basic Metabolic Profile (BMP )on 06-02-2024 Anion gap [Moles/Vol] 12 mmol/L Normal 5-15 [facility] Comment on above: Performed By: #### L 500.2500 #### [facility] [address] [place], [address] BUN/CRE 20.[address] [facility] Comment on above: Performed By: #### L 500.2500 #### [facility] [address] [place], [address] Calcium [Mass/Vol] 9.5 mg/dL Normal 7.6-11.0 [facility] Comment on above: Performed By: #### L 500.2500 #### [facility] [address] [place], [address] Chloride [Moles/Vol] 105 mmol/L Normal 96-108 [facility] Comment on above: Performed By: #### L 500.2500 #### [facility] [address] [place], [address] CO2 [Moles/Vol] 25.1 mmol/L Normal 22.0-29.[address] [facility] Comment on above: Performed By: #### L 500.2500 #### [facility] [address] [place], [address] Creatinine [Mass/Vol] 1.06 mg/dL Normal 0.70-1.20 [facility] Comment on above: Performed By: #### L 500.2500 #### [facility] [address] [place], [address] GFR/1.73 sq M.predicted among non-blacks MDRD (S/P/Bld) [Vol rate/Area] 51 mL/min/{1.73_m2} Low >[address] [facility] Comment on above: Result Comment: mL/m in/1.73m2 CKD-EPI Creatinine Equation (2020) Performed By: #### L 500.2500 #### [facility] [address], [address] Glucose [Mass/Vol] 130 mg/dL High 70-99 [facility] Comment on above: Performed By: #### L 500.2500 #### [facility] [address] [place], [address] Potassium [Moles/Vol] 4.8 mmol/L Normal 3.3-5.1 [facility] Comment on above: Performed By: #### L 500.2500 #### [facility] [address] [place], [address] Sodium [Moles/Vol] 143 mmol/L Normal 133-145 [facility] Comment on above: Performed By: #### L 500.2500 #### [facility] [address] [place], [address] Urea nitrogen [Mass/Vol] 22 mg/dL High 4-[address] [facility] Comment on above: Performed By: #### L 500.2500 #### [facility] [address] [place], [address] Carbon dioxide measurementOr dered By: Andrew Carter on 06-02-2024 CO2 [Moles/Vol] 25.1 mmol/L 22.0-29.[address] [facility] Chloride measurementOrdered By: Andrew Carter on 06-02-2024 Chloride [Moles/Vol] 105 mmol/L 96-108 [facility] GFR/1.73 sq M.predicted keara g non-blacks MDRD (S/P/Bld) [Vol rate/Area]Ordered By: Andrew Carter on 06-02-2024 Estimated GFR (MDRD) Non-Af Amer 51 Low >[address] [facility] Comment on above: mL/min/1.73m2 CKD-EP I Creatinine Equation (2020) Serum creatinine measurement (mass/volume)Ordered By: Andrew Carter 06-02-2024 Creatinine [Mass/Vol] 1.06 mg/dL 0.70-1.20 [facility] Serum glucose measurement (m ass/volume)Ordered By: Andrew Carter 06-02-2024 Glucose [Mass/Vol] 130 mg/dL High 70-99 [facility] Serum or plasma anion gap de termination (moles/volume)Ordered By: Andrew Carter 06-02-2024 Anion gap [Moles/Vol] 12 mmol/L 5-15 [facility] Serum or plasma calcium jinny urement (mass/volume)Ordered By: Andrew Carter 06-02-2024 Calcium [Mass/Vol] 9.5 mg/dL 7.6-11.0 [facility] Serum or plasma potassium me asurementOrdered By: Andrew Carter 06-02-2024 Potassium [Moles/Vol] 4.8 mmol/L 3.3-5.1 [facility] Serum or plasma sodium measu rement (moles/volume)Ordered By: Andrew Carter 06-02-2024 Sodium [Moles/Vol] 143 mmol/L 133-145 [facility] Serum or plasma urea nitroge n measurement (mass/volume)Ordered By: Andrew Carter on 06-02-2024 Urea nitrogen [Mass/Vol] 22 mg/dL High 4-[address] [facility] Absolute neutrophil countOrd ered By: Andrew Carter on 05-31-2024 Neutrophils (Bld) [#/Vol] 4.3 10*3/uL 2.0-7.[address] [facility] BUN/creatinine ratioOrdered By: Andrew Carter on 05-31-2024 Urea nitrogen/Creatinine [Mass ratio] 19.7 mg/mg 10-[address] [facility] Basophil percentageOrdered B y: Andrew Carter on 05-31-2024 Basophils/100 WBC (Bld) 1.1 % High 0-1 [facility] Bilirubin, totalOrdered By: Andrew Carter on 05-31-2024 Bilirubin [Mass/Vol] 0.32 mg/dL 0.00-1.30 [facility] CBC W/Diff, Automatedon 05-07 Absolute Lymph 2.84 X10 3/uL Normal 0.83-4.[address] [facility] Comment on above: Performed By: #### L 506.1001, L500.4050, L500.4100, L100.0100, L501.9520 #### [facility] [address] [facility] [place], [address] Absolute Neut 4.3 X10 3/uL Normal 2.0-7.[address] [facility] Comment on above: Performed By: #### L 506.1001, L500.4050, L500.4100, L100.0100, L501.9520 #### [facility] [address] [place], [address] Basophils/100 WBC (Bld) 1.1 % High 0-1 [facility] Comment on above: Performed By: #### L 506.1001, L500.4050, L500.4100, L100.0100, L501.9520 #### [facility] [address] [place], [address] Eosinophils/100 WBC (Bld) 3.3 % Normal 0-[address] [facility] Comment on above: Performed By: #### L 506.1001, L500.4050, L500.4100, L100.0100, L501.9520 #### [facility] [address] [place], [address] Erythrocyte distribution width (RBC) [Ratio] 14.3 % Normal 11.6-14.[address] [facility] Comment on above: Performed By: #### L 506.1001, L500.4050, L500.4100, L100.0100, L501.9520 #### [facility] [address] [place], [address] Hematocrit (Bld) [Volume fraction] 42.0 % Normal 37-[address] [facility] Comment on above: Performed By: #### L 506.1001, L500.4050, L500.4100, L100.0100, L501.9520 #### [facility] [address] [place], [address] Hemoglobin (Bld) [Mass/Vol] 13.5 g/dL Normal 12.0-15.[address] [facility] Comment on above: Performed By: #### L 506.1001, L500.4050, L500.4100, L100.0100, L501.9520 #### [facility] [address] [place], [address] IG% 0.400 Normal 0.0-0.[address] [facility] Comment on above: Result Comment: IG% - Immature Granulocytes (promyelocytes, myelocytes and metamyelocytes) > 1% indicates that a LEFT SHIFT is Present. Performed By: #### L 506.1001, L500.4050, L500.4100, L100.0100, L501.9520 #### [facility] [address] [place], [address] Lymphocytes/100 WBC (Bld) 33.9 % Normal 19-[address] [facility] Comment on above: Performed By: #### L 506.1001, L500.4050, L500.4100, L100.0100, L501.9520 #### [facility] [address] [place], [address] MCH (RBC) [Entitic mass] 29.9 pg Normal 27.0-32.[address] [facility] Comment on above: Performed By: #### L 506.1001, L500.4050, L500.4100, L100.0100, L501.9520 #### [facility] [address] [place], [address] MCHC (RBC) [Mass/Vol] 32.1 g/dL Normal 32-36 [facility] Comment on above: Performed By: #### L 506.1001, L500.4050, L500.4100, L100.0100, L501.9520 #### [facility] [address] [place], [address] MCV (RBC) [Entitic vol] 93.1 fL Normal 81-[address] [facility] Comment on above: Performed By: #### L 506.1001, L500.4050, L500.4100, L100.0100, L501.9520 #### [facility] [address] [place], [address] Monocytes/100 WBC (Bld) 9.7 % Normal 0-10 [facility] Comment on above: Performed By: #### L 506.1001, L500.4050, L500.4100, L100.0100, L501.9520 #### [facility] [address] [place], [address] Neutrophils/100 WBC (Bld) 51.6 % Normal 47-[address] [facility] Comment on above: Performed By: #### L 506.1001, L500.4050, L500.4100, L100.0100, L501.9520 #### [facility] [address] [place], [address] Nucleated RBC (Bld) [#/Vol] 0 10*3/uL Normal 0-[address] [facility] Comment on above: Performed By: #### L 506.1001, L500.4050, L500.4100, L100.0100, L501.9520 #### [facility] [address] [place], [address] Platelet mean volume (Bld) [Entitic vol] 10.9 fL Normal 6.2-12.[address] [facility] Comment on above: Performed By: #### L 506.1001, L500.4050, L500.4100, L100.0100, L501.9520 #### [facility] [address] [place], [address] Platelets (Bld) [#/Vol] 240 10*3/uL Normal 150-[address] [facility] Comment on above: Performed By: #### L 506.1001, L500.4050, L500.4100, L100.0100, L501.9520 #### [facility] [address] [place], [address] RBC (Bld) [#/Vol] 4.51 10*6/uL Normal 4.2-5.4 [facility] Comment on above: Performed By: #### L 506.1001, L500.4050, L500.4100, L100.0100, L501.9520 #### [facility] [address] [place], [address] RDW SD 48.5 fl High 35.1-43.[address] [facility] Comment on above: Performed By: #### L 506.1001, L500.4050, L500.4100, L100.0100, L501.9520 #### [facility] [address], [address] WBC (Bld) [#/Vol] 8.4 10*3/uL Normal 4.4-11.0 [facility] Comment on above: Performed By: #### L 506.1001, L500.4050, L500.4100, L100.0100, L501.9520 #### [facility] [address], [address] Calculated very low density lipoprotein (VLDL) cholesterol measurementOrdered By: Andrew Carter on 05-31-2024 VLDL Cholesterol 93 mg/dL High 5-[address] [facility] Carbon dioxide measurementOr dered By: Andrew Carter on 05-31-2024 CO2 [Moles/Vol] 24.8 mmol/L 22.0-29.[address] [facility] Chloride measurementOrdered By: Andrew Carter on 05-31-2024 Chloride [Moles/Vol] 105 mmol/L 96-108 [facility] Comprehensive Metabolic Prof ilon 05-31-2024 Albumin [Mass/Vol] 4.3 g/dL Normal 3.4-4.8 [facility] Comment on above: Performed By: #### L 506.1001, L500.4050, L500.4100, L100.0100, L501.9520 #### [facility] [address], [address] Albumin/Globulin [Mass ratio] 1.6 {ratio} Normal 0.9-2.[address] [facility] Comment on above: Performed By: #### L 506.1001, L500.4050, L500.4100, L100.0100, L501.9520 #### [facility] [address] [place], [address] ALK PHOS 98 U/L Normal 35-[address] [facility] Comment on above: Performed By: #### L 506.1001, L500.4050, L500.4100, L100.0100, L501.9520 #### [facility] [address] [place], [address] ALT [Catalytic activity/Vol] 15 U/L Normal <=[address] [facility] Comment on above: Performed By: #### L 506.1001, L500.4050, L500.4100, L100.0100, L501.9520 #### [facility] [address] [place], [address] Anion gap [Moles/Vol] 11 mmol/L Normal 5-15 [facility] Comment on above: Performed By: #### L 506.1001, L500.4050, L500.4100, L100.0100, L501.9520 #### [facility] [address] [place], [address] AST [Catalytic activity/Vol] 24 U/L Normal <=[address] [facility] Comment on above: Result Comment: Hemo lysis present, Results??could be affected. ?? Performed By: #### L 506.1001, L500.4050, L500.4100, L100.0100, L501.9520 #### [facility] [address] [place], [address] Bilirubin [Mass/Vol] 0.32 mg/dL Normal 0.00-1.30 [facility] Comment on above: Performed By: #### L 506.1001, L500.4050, L500.4100, L100.0100, L501.9520 #### [facility] [address] [place], [address] BUN/CRE 19.7 RATIO Normal 10-[address] [facility] Comment on above: Performed By: #### L 506.1001, L500.4050, L500.4100, L100.0100, L501.9520 #### [facility] [address] [place], [address] Calcium [Mass/Vol] 9.4 mg/dL Normal 7.6-11.0 [facility] Comment on above: Performed By: #### L 506.1001, L500.4050, L500.4100, L100.0100, L501.9520 #### [facility] [address] [place], [address] Chloride [Moles/Vol] 105 mmol/L Normal 96-108 [facility] Comment on above: Performed By: #### L 506.1001, L500.4050, L500.4100, L100.0100, L501.9520 #### [facility] [address] [place], [address] CO2 [Moles/Vol] 24.8 mmol/L Normal 22.0-29.[address] [facility] Comment on above: Performed By: #### L 506.1001, L500.4050, L500.4100, L100.0100, L501.9520 #### [facility] [address] [place], [address] Creatinine [Mass/Vol] 0.9 mg/dL Normal 0.6-1.0 [facility] Comment on above: Performed By: #### L 506.1001, L500.4050, L500.4100, L100.0100, L501.9520 #### [facility] [address] [place], [address] GFR/1.73 sq M.predicted among non-blacks MDRD (S/P/Bld) [Vol rate/Area] 59 mL/min/{1.73_m2} Low >[address] [facility] Comment on above: Result Comment: mL/m in/1.73m2 CKD-EPI Creatinine Equation (2020) Performed By: #### L 506.1001, L500.4050, L500.4100, L100.0100, L501.9520 #### [facility] [address] [place], [address] Globulin (S) [Mass/Vol] 2.7 g/dL Normal 2.2-4.[address] [facility] Comment on above: Performed By: #### L 506.1001, L500.4050, L500.4100, L100.0100, L501.9520 #### [facility] [address] [place], [address] Glucose [Mass/Vol] 133 mg/dL High 70-99 [facility] Comment on above: Performed By: #### L 506.1001, L500.4050, L500.4100, L100.0100, L501.9520 #### [facility] [address] [place], [address] Potassium [Moles/Vol] 5.5 mmol/L High 3.3-5.1 [facility] Comment on above: Result Comment: Hemo lysis present, Results??could be affected. ?? Performed By: #### L 506.1001, L500.4050, L500.4100, L100.0100, L501.9520 #### [facility] [address] [place], [address] Sodium [Moles/Vol] 140 mmol/L Normal 133-145 [facility] Comment on above: Performed By: #### L 506.1001, L500.4050, L500.4100, L100.0100, L501.9520 #### [facility] [address] [place], [address] T PROT 7.0 g/dL Normal 5.9-8.[address] [facility] Comment on above: Performed By: #### L 506.1001, L500.4050, L500.4100, L100.0100, L501.9520 #### [facility] [address] [place], [place], [address] Urea nitrogen [Mass/Vol] 19 mg/dL Normal 4-[address] [facility] Comment on above: Performed By: #### L 506.1001, L500.4050, L500.4100, L100.0100, L501.9520 #### [facility] [address] [place], [address] Eosinophil percentageOrdered By: [facility] Gricel on 05-31-2024 Eosinophils/100 WBC (Bld) 3.3 % 0-[address] [facility] Erythrocyte distribution wid th ratioOrdered By: [facility] Erythrocyte distribution width (RBC) [Ratio] 14.3 % 11.6-14.[address] [facility] Erythrocyte distribution wid th standard deviationOrdered By: Andrew Gricel 05-31-2024 Erythrocyte distribution width (RBC) [Entitic vol] 48.5 fL High 35.1-43.[address] [facility] GFR/1.73 sq M.predicted keara g non-blacks MDRD (S/P/Bld) [Vol rate/Area]Ordered By: Andrew Carter 05-31-2024 Estimated GFR (MDRD) Non-Af Amer 59 Low >[address] [facility] Comment on above: mL/min/1.73m2 CKD-EP I Creatinine Equation (2020) Hematocrit Auto (Bld) [Volum e fraction]Ordered By: Andrew Carter 05-31-2024 Hematocrit (Bld) [Volume fraction] 42.0 % 37-[address] [facility] Hemoglobin measurementOrdere d By: Andrew Carter 05-31-2024 Hemoglobin (Bld) [Mass/Vol] 13.5 g/dL 12.0-15.[address] [facility] Immature granulocytes/100 WB C Auto (Bld)Ordered By: Andrew Carter 05-31-2024 Immature granulocytes/100 WBC (Bld) 0.400 % 0.0-0.[address] [facility] Comment on above: IG% - Immature Granu locytes (promyelocytes, myelocytes and metamyelocytes) > 1% indicates that a LEFT SHIFT is Present. Influenza virus A and B and SARS-CoV-2 (COVID-19) and Respiratory syncytial virus RNAOrdered By: Andrew Carter on 05-31-2024 SARS-CoV-2 (COVID-19) RNA ASHOK+probe Ql (Unsp spec) [facility] L506.1001on 05-31-2024 Vitamin D 25-OH 35.6 ng/mL Normal 30-[address] [facility] Comment on above: Result Comment: Yady min D Status Deficiency: <20 ng/mL (50nmol/L) Insufficiency: 20-30 ng/mL (50-75 nmol/L) Sufficiency: 30-100 ng/mL (75-250 nmol/L) Toxicity: >100 ng/mL (>250 nmol/L) Performed By: #### L 506.1001, L500.4050, L500.4100, L100.0100, L501.9520 #### [facility] [address] [place], [place], [id number] LDL calc ser/plasOrdered By: Andrew Carter on 05-31-2024 LDL Cholesterol, Calculated 180 mg/dL [facility] Comment on above: Yvabtslgha=555-471 m g/dL & Higher Ofiu=397 mg/dL or greater Laboratory - Chemistry and C hemistry - challengeOrdered By: Andrew Carter on 05-31-2024 AST [Catalytic activity/Vol] 24 U/L <[address] [facility] Comment on above: Hemolysis present, R esults could be affected. Lipid Profileon 05-31-2024 CHOL:HDL 6.[address] [facility] Comment on above: Performed By: #### L 506.1001, L500.4050, L500.4100, L100.0100, L501.9520 #### [facility] [address] [place], [place], [id number] Cholesterol [Mass/Vol] 327 mg/dL High <=200 [facility] Comment on above: Result Comment: Chol esterol level, Desirable <200 mg/dL Borderline high cholesterol 200-239 mg/dL High cholesterol >=240 mg/dL Recommendations of the NCEP Adult Treatment Panel for the following risk-cutoff thresholds for the [place] population. Performed By: #### L 506.1001, L500.4050, L500.4100, L100.0100, L501.9520 #### [facility] [address] [place], [address] Cholesterol in HDL [Mass/Vol] 54 mg/dL Normal [facility] Comment on above: Result Comment: [place] onal Cholesterol Education Program (NCEP) guidelines: <40 mg/dL: Low HDL-cholesterol (major risk factor for CHD) >= 60 mg/dL: High HDL-cholesterol (negative risk factor for CHD) HDL-cholesterol is affected by a number of factors, e.g. smoking, exercise, hormones, sex and age. Performed By: #### L 506.1001, L500.4050, L500.4100, L100.0100, L501.9520 #### [facility] [address] [place], [address] Cholesterol in LDL [Mass/Vol] 180 mg/dL Normal [facility] Comment on above: Result Comment: Bord wjbjbz=091-474 mg/dL Higher Feao=393 mg/dL or greater Performed By: #### L 506.1001, L500.4050, L500.4100, L100.0100, L501.9520 #### [facility] [address] [place], [address] Cholesterol in VLDL [Mass/Vol] 93 mg/dL High 5-[address] [facility] Comment on above: Performed By: #### L 506.1001, L500.4050, L500.4100, L100.0100, L501.9520 #### [facility] [address] [place], [address] Triglyceride [Mass/Vol] 467 mg/dL High [facility] Comment on above: Result Comment: The drugs N-Acetylcysteine and Metamizole may falsely depress this assay. Normal range: <150 mg/dL Borderline High: 150-199 mg/dL High: 200-499 mg/dL Very High: >500 mg/dL Performed By: #### L 506.1001, L500.4050, L500.4100, L100.0100, L501.9520 #### [facility] [address], [address] Lymphocytes Auto (Unsp spec) [#/Vol]Ordered By: Andrew Carter on 05-31-2024 Lymphocytes (Bld) [#/Vol] 2.84 10*3/uL 0.83-4.[address] [facility] Lymphocytes/100 WBC Auto (Un sp spec)Ordered By: Andrew Carter on 05-31-2024 Lymphocytes/100 WBC (Bld) 33.9 % 19-[address] [facility] M100.678on 05-31-2024 M100.678 SARS-CoV-2 (COVID 19) Negative INFLUENZA A Negative INFLUENZA B Negative RSV PCR Negative Normal [facility] Comment on above: Performed By: #### L 506.1001, L500.4050, L500.4100, L100.0100, L501.9520 #### [facility] [address] [place], [address] MCV (mean corpuscular volume ) determinationOrdered By: Andrew Carter on 05-31-2024 MCV (RBC) [Entitic vol] 93.1 fL 81-[address] [facility] Mean corpuscular hemoglobin (MCH) determinationOrdered By: Andrew Carter on 05-31-2024 MCH (RBC) [Entitic mass] 29.9 pg 27.0-32.[address] [facility] Mean corpuscular hemoglobin concentration (MCHC) determinationOrdered By: Andrew Carter on 05-31-2024 MCHC (RBC) [Mass/Vol] 32.1 g/dL 32-36 [facility] Mean platelet volume determi nationOrdered By: Andrew Carter on 05-31-2024 Platelet mean volume (Bld) [Entitic vol] 10.9 fL 6.2-12.[address] [facility] Monocyte percentageOrdered B y: Andrew Carter on 05-31-2024 Monocytes/100 WBC (Bld) 9.7 % 0-10 [facility] Neutrophil percentageOrdered By: Andrew Carter on 05-31-2024 Neutrophils/100 WBC (Bld) 51.6 % 47-[address] [facility] Nucleated red blood cell per centageOrdered By: Andrew Carter on 05-31-2024 Nucleated RBC/100 WBC (Bld) [Ratio] 0 % 0-[address] [facility] Platelet countOrdered By: Kennedy Carter on 05-31-2024 Platelets (Bld) [#/Vol] 240 10*3/uL 150-[address] [facility] RBC Auto (Bld) [#/Vol]Ordere d By: Andrew Carter on 05-31-2024 RBC (Bld) [#/Vol] 4.51 10*6/uL 4.2-5.4 [facility] Screening total cholesterol/ high density lipoprotein (HDL) cholesterol ratioOrdered By: Andrew Carter on 05-31-2024 Cholesterol.total/Choles terol in HDL [Mass ratio] 6.10 {ratio} [facility] Serum creatinine measurement (mass/volume)Ordered By: Andrew Carter 05-31-2024 Creatinine [Mass/Vol] 0.9 mg/dL 0.70-1.20 [facility] Serum globulin measurementOr dered By: Andrew Carter 05-31-2024 Globulin (S) [Mass/Vol] 2.7 g/dL 2.2-4.2 [facility] Serum glucose measurement (m ass/volume)Ordered By: Andrew Carter 05-31-2024 Glucose [Mass/Vol] 133 mg/dL High 70-99 [facility] Serum or plasma alanine bourgeois otransferase (ALT) measurementOrdered By: Andrew Carter 05-31-2024 ALT [Catalytic activity/Vol] 15 U/L <[address] [facility] Serum or plasma albumin jinny urement (mass/volume)Ordered By: Andrew Carter 05-31-2024 Albumin [Mass/Vol] 4.3 g/dL 3.4-4.8 [facility] Serum or plasma albumin/glob ulin mass ratioOrdered By: Andrew Carter 05-31-2024 Albumin/Globulin [Mass ratio] 1.6 {ratio} 0.9-2.[address] [facility] Serum or plasma alkaline mark sphatase measurementOrdered By: Andrew Carter 05-31-2024 ALP [Catalytic activity/Vol] 98 U/L 35-[address] [facility] Serum or plasma anion gap de termination (moles/volume)Ordered By: Andrew Carter 05-31-2024 Anion gap [Moles/Vol] 11 mmol/L 5-15 [facility] Serum or plasma calcium jinny urement (mass/volume)Ordered By: Andrew Carter 05-31-2024 Calcium [Mass/Vol] 9.4 mg/dL 7.6-11.0 [facility] Serum or plasma cholesterol in HDL measurement (mass/volume)Ordered By: Andrew Carter 05-31-2024 Cholesterol in HDL [Mass/Vol] 54 mg/dL >[address] [facility] Comment on above: National Cholesterol Education Program (NCEP) guidelines:<40 mg/dL: Low HDL-cholesterol (major risk factor for CHD)>= 60 mg/dL: High HDL-cholesterol (negative risk factor for CHD)HDL-cholesterol is affected by a number of factors, e.g. smoking, exercise, hormones, sex and age. Serum or plasma cholesterol measurement (mass/volume)Ordered By: Andrew Carter 05-31-2024 Cholesterol [Mass/Vol] 327 mg/dL High <201 [facility] Comment on above: Cholesterol level, D esirable <200 mg/dLBorderline high cholesterol 200-239 mg/dLHigh cholesterol >=240 mg/dLRecommendations of the NCEP Adult Treatment Panel for the following risk-cutoff thresholds for the [place] population. Serum or plasma potassium me asurementOrdered By: Andrew Carter 05-31-2024 Potassium [Moles/Vol] 5.5 mmol/L High 3.3-5.1 [facility] Comment on above: Hemolysis present, R esults could be affected. Serum or plasma sodium measu rement (moles/volume)Ordered By: Andrew Carter 05-31-2024 Sodium [Moles/Vol] 140 mmol/L 133-145 [facility] Serum or plasma urea nitroge n measurement (mass/volume)Ordered By: Andrew Carter on 05-31-2024 Urea nitrogen [Mass/Vol] 19 mg/dL 4-[address] [facility] TSH DL <= 0.005 mIU/L QnOrde red By: Andrew Carter on 05-31-2024 Thyroid Stimulating Hormone (TSH) 1.810 uIU/mL 0.300-4.[address] [facility] Thyroid Stim Hormone (TSH)on 05-31-2024 TSH 1.810 uIU/mL Normal 0.300-4.[address] [facility] Comment on above: Performed By: #### L 506.1001, L500.4050, L500.4100, L100.0100, L501.9520 #### [facility] [address] [place], [address] Total proteinOrdered By: Andrew Carter on 05-31-2024 Protein [Mass/Vol] 7.0 g/dL 5.9-8.4 [facility] Triglycerides measurementOrd ered By: Andrew Carter on 05-31-2024 Triglyceride [Mass/Vol] 467 mg/dL High <199 [facility] Comment on above: The drugs N-Acetylcy steine and Metamizole may falsely depress this assay. Normal range: <150 mg/dLBorderline High: 150-199 mg/dLHigh: 200-499 mg/dLVery High: >500 mg/dL Vitamin D, 25-hydroxyOrdered By: Andrew Carter on 05-31-2024 Vitamin D 25-Hydroxy 35.6 ng/mL 30-100 [facility] Comment on above: Vitamin D StatusDefi ciency: <20 ng/mL (50nmol/L)Insufficiency: 20-30 ng/mL (50-75 nmol/L)Sufficiency: 30-100 ng/mL (75-250 nmol/L)Toxicity: >100 ng/mL (>250 nmol/L) White blood cell (WBC) count Ordered By: Andrew Carter on 05-31-2024 WBC (Bld) [#/Vol] 8.4 10*3/uL 4.4-11.0 [facility] Hemoglobin A1con 12-01-2023 HbA1c (Bld) [Mass fraction] 5.5 % Normal 3.8-5.[address] [facility] Comment on above: Order Comment: ADD O N FROM 11/29 DRAW *[id number] Result Comment: Norm al < 5.7 % Prediabetic 5.7 - 6.4 % Diabetic >or= 6.5 % Please note range changes. Performed By: #### L 506.1001, L500.4050, L500.4100, L100.0100, L501.9520 #### [facility] [address] [place], [address] CBC W/Diff, Automatedon 11-04-2023 Absolute Lymph 2.65 X10 3/uL Normal 0.83-4.[address] [facility] Comment on above: Performed By: #### L [id number], L501.9985, L100.0100, L500.4050, L506.1000 #### [facility] [address] [place], [address] Absolute Neut 4.4 X10 3/uL Normal 2.0-7.[address] [facility] Comment on above: Performed By: #### L [id number], L501.9985, L100.0100, L500.4050, L506.1000 #### [facility] [address] [place], [address] Basophils/100 WBC (Bld) 1.0 % Normal 0-1 [facility] Comment on above: Performed By: #### L [id number], L501.9985, L100.0100, L500.4050, L506.1000 #### [facility] [address] [place], [address] Eosinophils/100 WBC (Bld) 4.2 % Normal 0-[address] [facility] Comment on above: Performed By: #### L [id number], L501.9985, L100.0100, L500.4050, L506.1000 #### [facility] [address] [place], [address] Erythrocyte distribution width (RBC) [Ratio] 14.8 % High 11.6-14.[address] [facility] Comment on above: Performed By: #### L [id number], L501.9985, L100.0100, L500.4050, L506.1000 #### [facility] [address] [place], [address] Hematocrit (Bld) [Volume fraction] 39.4 % Normal 37-[address] [facility] Comment on above: Performed By: #### L [id number], L501.9985, L100.0100, L500.4050, L506.1000 #### [facility] [address], [address] Hemoglobin (Bld) [Mass/Vol] 12.5 g/dL Normal 12.0-15.[address] [facility] Comment on above: Performed By: #### L 501.9520, L501.9985, L100.0100, L500.4050, L506.1000 #### [facility] [address], [address] IG% 0.400 Normal 0.0-0.[address] [facility] Comment on above: Result Comment: IG% - Immature Granulocytes (promyelocytes, myelocytes and metamyelocytes) > 1% indicates that a LEFT SHIFT is Present. Performed By: #### L 501.9520, L501.9985, L100.0100, L500.4050, L506.1000 #### [facility] [address] [place], [address] Lymphocytes/100 WBC (Bld) 32.1 % Normal 19-[address] [facility] Comment on above: Performed By: #### L [id number], L501.9985, L100.0100, L500.4050, L506.1000 #### [facility] [address] [place], [address] MCH (RBC) [Entitic mass] 29.2 pg Normal 27.0-32.[address] [facility] Comment on above: Performed By: #### L [id number], L501.9985, L100.0100, L500.4050, L506.1000 #### [facility] [address] [place], [address] MCHC (RBC) [Mass/Vol] 31.7 g/dL Low 32-36 [facility] Comment on above: Performed By: #### L [id number], L501.9985, L100.0100, L500.4050, L506.1000 #### [facility] [address] [place], [address] MCV (RBC) [Entitic vol] 92.1 fL Normal 81-99 [facility] Comment on above: Performed By: #### L 501.9520, L501.9985, L100.0100, L500.4050, L506.1000 #### [facility] [address] [place], [address] Monocytes/100 WBC (Bld) 9.2 % Normal 0-[address] [facility] Comment on above: Performed By: #### L 501.9520, L501.9985, L100.0100, L500.4050, L506.1000 #### [facility] [address] [place], [address] Neutrophils/100 WBC (Bld) 53.1 % Normal 47-[address] [facility] Comment on above: Performed By: #### L 501.9520, L501.9985, L100.0100, L500.4050, L506.1000 #### [facility] [address] [place], [address] Nucleated RBC (Bld) [#/Vol] 0 10*3/uL Normal 0-[address] [facility] Comment on above: Performed By: #### L 501.9520, L501.9985, L100.0100, L500.4050, L506.1000 #### [facility] [address] [place], [address] Platelet mean volume (Bld) [Entitic vol] 10.6 fL Normal 6.2-12.[address] [facility] Comment on above: Performed By: #### L 501.9520, L501.9985, L100.0100, L500.4050, L506.1000 #### [facility] [address] [place], [address] Platelets (Bld) [#/Vol] 221 10*3/uL Normal 150-[address] [facility] Comment on above: Performed By: #### L 501.9520, L501.9985, L100.0100, L500.4050, L506.1000 #### [facility] [address] [place], [address] RBC (Bld) [#/Vol] 4.28 10*6/uL Normal 4.2-5.4 [facility] Comment on above: Performed By: #### L 501.9520, L501.9985, L100.0100, L500.4050, L506.1000 #### [facility] [address] [place], [address] RDW SD 49.8 fl High 35.1-43.[address] [facility] Comment on above: Performed By: #### L 501.9520, L501.9985, L100.0100, L500.4050, L506.1000 #### [facility] [address] [place], [address] WBC (Bld) [#/Vol] 8.3 10*3/uL Normal 4.4-11.0 [facility] Comment on above: Performed By: #### L 501.9520, L501.9985, L100.0100, L500.4050, L506.1000 #### [facility] [address] [place], [address] Comprehensive Metabolic Prof ilon 11-30-2023 Albumin [Mass/Vol] 3.4 g/dL Normal 3.2-5.0 [facility] Comment on above: Performed By: #### L 501.9520, L501.9985, L100.0100, L500.4050, L506.1000 #### [facility] [address] [place], [address] Albumin/Globulin [Mass ratio] 0.9 {ratio} Normal 0.9-2.[address] [facility] Comment on above: Performed By: #### L 501.9520, L501.9985, L100.0100, L500.4050, L506.1000 #### [facility] [address] [place], [address] ALK P 103 U/L Normal 45-[address] [facility] Comment on above: Performed By: #### L 501.9520, L501.9985, L100.0100, L500.4050, L506.1000 #### [facility] [address] [place], [address] ALT [Catalytic activity/Vol] 24 U/L Normal 13-[address] [facility] Comment on above: Performed By: #### L 501.9520, L501.9985, L100.0100, L500.4050, L506.1000 #### [facility] [address] [place], [address] AST [Catalytic activity/Vol] 32 U/L Normal 15-[address] [facility] Comment on above: Result Comment: Mode rate Hemolysis, Result may be falsely increased. Performed By: #### L 501.9520, L501.9985, L100.0100, L500.4050, L506.1000 #### [facility] [address] [place], [address] Bilirubin [Mass/Vol] 0.50 mg/dL Normal 0.20-1.00 [facility] Comment on above: Result Comment: For patients on eltrombopag therapy, use of Dimension [place] TBIL is not recommended. Performed By: #### L 501.9520, L501.9985, L100.0100, L500.4050, L506.1000 #### [facility] [address] [place], [address] BUN/CRE 16.7 RATIO Normal 10-[address] [facility] Comment on above: Performed By: #### L 501.9520, L501.9985, L100.0100, L500.4050, L506.1000 #### [facility] [address] [place], [address] CA,Total 9.0 mg/dL Normal 8.5-10.[address] [facility] Comment on above: Performed By: #### L 501.9520, L501.9985, L100.0100, L500.4050, L506.1000 #### [facility] [address] [place], [address] Chloride [Moles/Vol] 108 mmol/L High 98-107 [facility] Comment on above: Performed By: #### L 501.9520, L501.9985, L100.0100, L500.4050, L506.1000 #### [facility] [address] [place], [address] CO2 [Moles/Vol] 27.0 mmol/L Normal 21.0-32.[address] [facility] Comment on above: Performed By: #### L 501.9520, L501.9985, L100.0100, L500.4050, L506.1000 #### [facility] [address] [place], [address] Creatinine [Mass/Vol] 0.96 mg/dL Normal 0.55-1.02 [facility] Comment on above: Result Comment: The validity of the calculated GFR GFRAA in patients over 70 years has not been determined. Clinical correlation is essential. Performed By: #### L 501.9520, L501.9985, L100.0100, L500.4050, L506.1000 #### [facility] [address] [place], [address] EST GFR - AA 71 mL/min Normal >[address] [facility] Comment on above: Result Comment: Afri can [place] GFR Calc Performed By: #### L 501.9520, L501.9985, L100.0100, L500.4050, L506.1000 #### [facility] [address] [place], [address] GAP 6 Normal 5-[address] [facility] Comment on above: Performed By: #### L 501.9520, L501.9985, L100.0100, L500.4050, L506.1000 #### [facility] [address] [place], [address] GFR/1.73 sq M.predicted among non-blacks MDRD (S/P/Bld) [Vol rate/Area] 59 mL/min/{1.73_m2} Low >[address] [facility] Comment on above: Result Comment: Non- GFR Calc Performed By: #### L 501.9520, L501.9985, L100.0100, L500.4050, L506.1000 #### [facility] [address] [place], [address] Globulin (S) [Mass/Vol] 3.6 g/dL Normal 2.2-4.[address] [facility] Comment on above: Performed By: #### L 501.9520, L501.9985, L100.0100, L500.4050, L506.1000 #### [facility] [address] [place], [address] Glucose [Mass/Vol] 142 mg/dL High 74-106 [facility] Comment on above: Result Comment: Fast ing Glucose result greater than or equal to 126 mg/dL suggests DIABETES MELLITUS per A.D.A. criteria. Performed By: #### L 501.9520, L501.9985, L100.0100, L500.4050, L506.1000 #### [facility] [address] [place], [address] Potassium [Moles/Vol] 4.8 mmol/L Normal 3.5-5.1 [facility] Comment on above: Result Comment: Mode rate Hemolysis, Result may be falsely increased. Performed By: #### L 501.9520, L501.9985, L100.0100, L500.4050, L506.1000 #### [facility] [address] [place], [address] Sodium [Moles/Vol] 141 mmol/L Normal 136-145 [facility] Comment on above: Performed By: #### L 501.9520, L501.9985, L100.0100, L500.4050, L506.1000 #### [facility] [address] [place], [address] T PROT 7.0 g/dL Normal 6.4-8.[address] [facility] Comment on above: Performed By: #### L 501.9520, L501.9985, L100.0100, L500.4050, L506.1000 #### [facility] [address] [place], [address] Urea nitrogen [Mass/Vol] 16 mg/dL Normal 7-[address] [facility] Comment on above: Performed By: #### L 501.9520, L501.9985, L100.0100, L500.4050, L506.1000 #### [facility] [address] [place], [address] Thyroid Stim Hormone (TSH)on 11-30-2023 TSH 0.888 uIU/mL Normal 0.358-3.[address] [facility] Comment on above: Performed By: #### L 501.9520, L501.9985, L100.0100, L500.4050, L506.1000 #### [facility] [address] [place], [address] Vitamin D,25 Hydroxyon 11-29 Vitamin D 25-OH 28.9 ng/mL Normal [facility] Comment on above: Result Comment: Yady min D 25(OH) Status Range Deficiency <20 ng/mL (50nmol/L) Insufficiency 20 - 30 ng/mL (50 - 75 nmol/L) Sufficiency 30 - 100 ng/mL (75 - 250 nmol/L) Toxicity >100 ng/mL (>250 nmol/L) Performed By: #### L 501.9520, L501.9985, L100.0100, L500.4050, L506.1000 #### [facility] [address] [place], [place], [id number] Absolute lymphocyte countOrd ered By: Andrew Carter on 11-25-2022 Lymphocytes Auto (Unsp spec) [#/Vol] 2.33 10*3/uL 0.83-4.[address] [facility] Basophil percentageOrdered B y: Andrew Carter on 11-25-2022 Basophils/100 WBC (Bld) 0.8 % 0-1 [facility] Bilirubin [Mass/Vol] 0.40 mg/dL 0.20-1.00 [facility] Comment on above: For patients on eltr ombopag therapy, use of Dimension [place] TBIL is not recommended. Chloride [Moles/Vol] 111 mmol/L 98-107 [facility] Eosinophils/100 WBC (Bld) 3.3 % 0-[address] [facility] Glucose [Mass/Vol] 120 mg/dL 74-106 [facility] Comment on above: Fasting Glucose resu lt from 100 to 125 mg/dL suggests IMPAIRED HOMEOSTASIS per A.D.A. criteria. Neutrophils (Bld) [#/Vol] 4.0 10*3/uL 2.0-7.[address] [facility] Neutrophils/100 WBC (Bld) 54.7 % 47-[address] [facility] Potassium [Moles/Vol] 4.7 mmol/L 3.5-5.1 [facility] Comment on above: Slight Hemolysis, Re sult may be falsely increased. Protein [Mass/Vol] 6.9 g/dL 6.4-8.2 [facility] Sodium [Moles/Vol] 144 mmol/L 136-145 [facility] WBC (Bld) [#/Vol] 7.3 10*3/uL 4.4-11.0 [facility] Blood erythrocytes count (nu mber/volume)Ordered By: Andrew Carter on 11-25-2022 RBC (Bld) [#/Vol] 4.28 10*6/uL 4.2-5.4 [facility] Blood hemoglobin measurement (mass/volume)Ordered By: Andrew Carter on 11-25-2022 Hemoglobin (Bld) [Mass/Vol] 12.5 g/dL 12.0-15.[address] [facility] Blood lymphocytes/100 leukoc ytesOrdered By: Andrew Carter on 11-25-2022 Lymphocytes/100 WBC (Bld) 32.1 % 19-[address] [facility] Blood monocytes/100 leukocyt esOrdered By: Andrew Carter on 11-25-2022 Monocytes/100 WBC (Bld) 8.8 % 0-[address] [facility] Blood platelet mean volumeOr dered By: Andrew Carter on 11-25-2022 Platelet mean volume (Bld) [Entitic vol] 11.0 fL 6.2-12.[address] [facility] Determination of erythrocyte mean corpuscular volume (MCV)Ordered By: Andrew Carter on 11-25-2022 MCV (RBC) [Entitic vol] 91.4 fL 81-99 [facility] Hematocrit Auto (Bld) [Volum e fraction]Ordered By: Andrew Carter on 11-25-2022 Hematocrit (Bld) [Volume fraction] 39.1 % 37-[address] [facility] - Chemistry and C hemistry - challengeOrdered By: Andrew Carter on 11-25-2022 ALP [Catalytic activity/Vol] 96 U/L 45-[address] [facility] ALT [Catalytic activity/Vol] 24 U/L 13-[address] [facility] CO2 [Moles/Vol] 25.0 mmol/L 21.0-32.[address] [facility] Globulin (S) [Mass/Vol] 3.3 g/dL 2.2-4.2 [facility] Urea nitrogen/Creatinine [Mass ratio] 15.9 mg/mg 10-[address] [facility] - Hematology and Cell countsOrdered By: Andrew Carter on 11-25-2022 Erythrocyte distribution width (RBC) [Entitic vol] 48.4 fL 35.1-43.[address] [facility] Erythrocyte distribution width (RBC) [Ratio] 14.6 % 11.6-14.[address] [facility] Immature granulocytes/100 WBC (Bld) 0.300 % 0.0-0.[address] [facility] Comment on above: IG% - Immature Granu locytes (promyelocytes, myelocytes and metamyelocytes) > 1% indicates that a LEFT SHIFT is Present. MCH (RBC) [Entitic mass] 29.2 pg 27.0-32.[address] [facility] Nucleated RBC/100 WBC (Bld) [Ratio] 0 % 0-[address] [facility] MCHC Auto (RBC) [Mass/Vol]Or dered By: Andrew Carter on 11-25-2022 MCHC (RBC) [Mass/Vol] 32.0 g/dL 32-36 [facility] No Panel InformationOrdered By: Andrew Carter on 11-25-2022 Estimated GFR (MDRD) Amer 59 mL/min >[address] [facility] Comment on above: GFR Calc Estimated GFR (MDRD) Non-Af Amer 49 mL/min >[address] [facility] Comment on above: Non- GFR Calc Thyroid Stimulating Hormone (TSH) 1.08 uIU/mL 0.358-3.[address] [facility] Vitamin D 25-Hydroxy 33.0 ng/mL [facility] Comment on above: Vitamin D 25(OH) Sta tus Range Deficiency <20 ng/mL (50nmol/L) Insufficiency 20 - 30 ng/mL (50 - 75 nmol/L) Sufficiency 30 - 100 ng/mL (75 - 250 nmol/L) Toxicity >100 ng/mL (>250 nmol/L) Platelets bldOrdered By: Andrew Carter on 11-25-2022 Platelets (Bld) [#/Vol] 218 10*3/uL 150-[address] [facility] Serum or plasma albumin jinny urement (mass/volume)Ordered By: Andrew Carter on 11-25-2022 Albumin [Mass/Vol] 3.6 g/dL 3.2-5.0 [facility] Serum or plasma albumin/glob ulin mass ratioOrdered By: Andrew Carter on 11-25-2022 Albumin/Globulin [Mass ratio] 1.1 {ratio} 0.9-2.[address] [facility] Serum or plasma calcium jinny urement (mass/volume)Ordered By: Andrew Carter on 11-25-2022 Calcium [Mass/Vol] 8.7 mg/dL 8.5-10.1 [facility] Serum or plasma creatinine m easurement (mass/volume)Ordered By: Andrew Carter on 11-25-2022 Creatinine [Mass/Vol] 1.13 mg/dL 0.55-1.02 [facility] Comment on above: The validity of the calculated GFR & GFRAA in patients over 70 years has not been determined. Clinical correlation is essential. Serum or plasma urea nitroge n measurement (mass/volume)Ordered By: Andrew Carter on 11-25-2022 Urea nitrogen [Mass/Vol] 18 mg/dL 7-[address] [facility] Thin prep Papanicolaou smear with manual screeningOrdered By: Andrew Carter 11-25-2022 Thin prep Papanicolaou smear with manual screening 21 U/L 15-[address] [facility] Comment on above: Slight Hemolysis, Re sult may be falsely increased. Thin prep Papanicolaou smear with manual screening 8 5-[address] [facility] No Panel InformationOrdered By: Andrew Carter on 08-20-2022 Homocysteine 11.4 umol/L 3.2-10.[address] [facility] Thyroid Stimulating Hormone (TSH) 1.98 uIU/mL 0.358-3.[address] [facility] Serum or plasma methylmalona te measurement (moles/volume)Ordered By: Andrew Carter on 08-20-2022 Methylmalonate [Moles/Vol] 219 nmol/L 0-[address] [facility] Comment on above: Performed at: [address] [id number] Director: Greer Chavez MD, Phone: [phone] Absolute lymphocyte countOrd ered By: Dr. Carter on 07-14-2022 Lymphocytes Auto (Unsp spec) [#/Vol] 2.49 10*3/uL 0.83-4.[address] [facility] Basophil percentageOrdered B y: Dr. Carter on 07-14-2022 Basophils/100 WBC (Bld) 0.3 % 0-1 [facility] Bilirubin [Mass/Vol] 0.70 mg/dL 0.20-1.00 [facility] Comment on above: For patients on eltr ombopag therapy, use of Dimension [place] TBIL is not recommended. Chloride [Moles/Vol] 106 mmol/L 98-107 [facility] Eosinophils/100 WBC (Bld) 0.5 % 0-[address] [facility] Glucose [Mass/Vol] 120 mg/dL 74-106 [facility] Comment on above: Fasting Glucose resu lt from 100 to 125 mg/dL suggests IMPAIRED HOMEOSTASIS per A.D.A. criteria. Neutrophils (Bld) [#/Vol] 10.4 10*3/uL 2.0-7.[address] [facility] Neutrophils/100 WBC (Bld) 74.6 % 47-[address] [facility] Potassium [Moles/Vol] 4.6 mmol/L 3.5-5.1 [facility] Protein [Mass/Vol] 7.4 g/dL 6.4-8.2 [facility] Sodium [Moles/Vol] 139 mmol/L 136-145 [facility] WBC (Bld) [#/Vol] 13.9 10*3/uL 4.4-11.0 [facility] Blood erythrocytes count (nu mber/volume)Ordered By: Dr. Carter on 07-14-2022 RBC (Bld) [#/Vol] 4.78 10*6/uL 4.2-5.4 [facility] Blood hemoglobin measurement (mass/volume)Ordered By: Dr. Carter on 07-14-2022 Hemoglobin (Bld) [Mass/Vol] 13.9 g/dL 12.0-15.[address] [facility] Blood lymphocytes/100 leukoc ytesOrdered By: Dr. Carter on 07-14-2022 Lymphocytes/100 WBC (Bld) 17.9 % 19-[address] [facility] Blood monocytes/100 leukocyt esOrdered By: Dr. Carter on 07-14-2022 Monocytes/100 WBC (Bld) 5.8 % 0-10 [facility] Blood platelet mean volumeOr dered By: Dr. Carter on 07-14-2022 Platelet mean volume (Bld) [Entitic vol] 11.0 fL 6.2-12.[address] [facility] Determination of erythrocyte mean corpuscular volume (MCV)Ordered By: Dr. Carter on 07-14-2022 MCV (RBC) [Entitic vol] 93.1 fL 81-99 [facility] Hematocrit Auto (Bld) [Volum e fraction]Ordered By: Dr. Carter on 07-14-2022 Hematocrit (Bld) [Volume fraction] 44.5 % 37-[address] [facility] Laboratory - Chemistry and C hemistry - challengeOrdered By: Dr. Carter on 07-14-2022 ALP [Catalytic activity/Vol] 81 U/L 45-[address] [facility] ALT [Catalytic activity/Vol] 26 U/L 13-[address] [facility] CO2 [Moles/Vol] 32.0 mmol/L 21.0-32.[address] [facility] Globulin (S) [Mass/Vol] 3.5 g/dL 2.2-4.[address] [facility] Urea nitrogen/Creatinine [Mass ratio] 19.4 mg/mg 10-[address] [facility] Laboratory - Hematology and Cell countsOrdered By: Dr. Carter on 07-14-2022 Erythrocyte distribution width (RBC) [Entitic vol] 51.3 fL 35.1-43.[address] [facility] Erythrocyte distribution width (RBC) [Ratio] 14.9 % 11.6-14.[address] [facility] Immature granulocytes/100 WBC (Bld) 0.900 % 0.0-0.[address] [facility] Comment on above: IG% - Immature Granu locytes (promyelocytes, myelocytes and metamyelocytes) > 1% indicates that a LEFT SHIFT is Present. MCH (RBC) [Entitic mass] 29.1 pg 27.0-32.[address] [facility] Nucleated RBC/100 WBC (Bld) [Ratio] 0 % 0-[address] [facility] MCHC Auto (RBC) [Mass/Vol]Or dered By: Dr. Carter on 07-14-2022 MCHC (RBC) [Mass/Vol] 31.2 g/dL 32-36 [facility] No Panel InformationOrdered By: Dr. Carter on 07-14-2022 Estimated GFR (MDRD) Amer 53 mL/min >[address] [facility] Comment on above: GFR Calc Estimated GFR (MDRD) Non-Af Amer 44 mL/min >[address] [facility] Comment on above: Non- GFR Calc Platelets bldOrdered By: Dr. Carter on 07-14-2022 Platelets (Bld) [#/Vol] 291 10*3/uL 150-[address] [facility] Serum or plasma albumin jinny urement (mass/volume)Ordered By: Dr. Carter on 07-14-2022 Albumin [Mass/Vol] 3.9 g/dL 3.2-5.0 [facility] Serum or plasma albumin/glob ulin mass ratioOrdered By: Dr. Carter on 07-14-2022 Albumin/Globulin [Mass ratio] 1.1 {ratio} 0.9-2.[address] [facility] Serum or plasma calcium jinny urement (mass/volume)Ordered By: Dr. Carter on 07-14-2022 Calcium [Mass/Vol] 9.2 mg/dL 8.5-10.1 [facility] Serum or plasma creatinine m easurement (mass/volume)Ordered By: Dr. Carter on 07-14-2022 Creatinine [Mass/Vol] 1.24 mg/dL 0.55-1.02 [facility] Comment on above: The validity of the calculated GFR & GFRAA in patients over 70 years has not been determined. Clinical correlation is essential. Serum or plasma urea nitroge n measurement (mass/volume)Ordered By: Dr. Carter on 07-14-2022 Urea nitrogen [Mass/Vol] 24 mg/dL 7-[address] [facility] Thin prep Papanicolaou smear with manual screeningOrdered By: Dr. Carter on 07-14-2022 Thin prep Papanicolaou smear with manual screening 20 U/L 15-[address] [facility] Thin prep Papanicolaou smear with manual screening 1 5-[address] [facility] COVID-19 virus antigen assay Ordered By: Dr. Carter on 07-10-2022 SARS-CoV-2 (COVID-19) Ag IA.rapid Ql (Resp) Not detected Not Detect [facility] Comment on above: Normal Reference Ran ge: Not DetectedMethod:(RT-PCR) real-time reverse transcriptase PCRLuminex [employer] Instrument*The Food and Drug Administration (FDA) has issued an Emergency Use Authorization (EAU) for the [employer] SARS-CoV-2 Assay for the rapid detection of the virus that causes COVID-19. This test has been validated, but the FDAs independent review of this validation is pending.*Negative results do not preclude infection and should not be used as the sole basis for treatment or patient management. Optimum specimen types and timing for peak viral levels during infections caused by SARS-CoV-2 have not been determined. Collection of multiple specimens from the same patient may be necessary to detect the virus. The possibility of a false negative result should be considered if the patient has clinical presentation or has had recent exposure. No Panel InformationOrdered By: Dr. Carter on 07-10-2022 Influenza Types A,B Direct FA (CJ) [facility] RSV Ag EIAOrdered By: Dr. Niurka wood on 07-10-2022 RSV Ag Immune stain Ql (Tiss) [facility] No Panel InformationOrdered By: Dr. Carter on 07-02-2022 Thyroid Stimulating Hormone (TSH) 12.80 uIU/mL 0.358-3.[address] [facility] Basophil percentageOrdered B y: Dr. Carter on 05-22-2022 Chloride [Moles/Vol] 108 mmol/L 98-107 [facility] Glucose [Mass/Vol] 126 mg/dL 74-106 [facility] Comment on above: Fasting Glucose resu lt greater than or equal to 126 mg/dL suggests DIABETES MELLITUS per A.D.A. criteria. Potassium [Moles/Vol] 4.4 mmol/L 3.5-5.1 [facility] Sodium [Moles/Vol] 142 mmol/L 136-145 [facility] Laboratory - Chemistry and C hemistry - challengeOrdered By: Dr. Carter on 05-22-2022 CO2 [Moles/Vol] 28.0 mmol/L 21.0-32.[address] [facility] Urea nitrogen/Creatinine [Mass ratio] 21.3 mg/mg 10-[address] [facility] No Panel InformationOrdered By: Dr. Carter on 05-22-2022 Estimated GFR (MDRD) Amer 48 mL/min >[address] [facility] Comment on above: GFR Calc Estimated GFR (MDRD) Non-Af Amer 39 mL/min >[address] [facility] Comment on above: Non- GFR Calc Serum or plasma calcium jinny urement (mass/volume)Ordered By: Dr. Carter on 05-22-2022 Calcium [Mass/Vol] 9.0 mg/dL 8.5-10.1 [facility] Serum or plasma creatinine m easurement (mass/volume)Ordered By: Dr. Carter on 05-22-2022 Creatinine [Mass/Vol] 1.36 mg/dL 0.55-1.02 [facility] Comment on above: The validity of the calculated GFR & GFRAA in patients over 70 years has not been determined. Clinical correlation is essential. Serum or plasma urea nitroge n measurement (mass/volume)Ordered By: Dr. Carter on 05-22-2022 Urea nitrogen [Mass/Vol] 29 mg/dL -[address] [facility] Thin prep Papanicolaou smear with manual screeningOrdered By: Dr. Carter on 05-22-2022 Thin prep Papanicolaou smear with manual screening 6 - [facility] Absolute lymphocyte countOrd ered By: Andrew Carter on 05-20-2022 Lymphocytes Auto (Unsp spec) [#/Vol] 3.11 10*3/uL 0.83-4.[address] [facility] Basophil percentageOrdered B y: Andrew Carter on 05-20-2022 Basophils/100 WBC (Bld) 0.8 % 0-1 [facility] Bilirubin [Mass/Vol] 0.40 mg/dL 0.20-1.00 [facility] Comment on above: For patients on eltr ombopag therapy, use of Dimension [place] TBIL is not recommended. Chloride [Moles/Vol] 104 mmol/L 98-107 [facility] Eosinophils/100 WBC (Bld) 4.4 % 0-[address] [facility] Glucose [Mass/Vol] 97 mg/dL 74-106 [facility] Neutrophils (Bld) [#/Vol] 4.5 10*3/uL 2.0-7.[address] [facility] Neutrophils/100 WBC (Bld) 50.7 % 47-[address] [facility] Potassium [Moles/Vol] 5.2 mmol/L 3.5-5.1 [facility] Protein [Mass/Vol] 7.9 g/dL 6.4-8.2 [facility] Sodium [Moles/Vol] 139 mmol/L 136-145 [facility] WBC (Bld) [#/Vol] 8.8 10*3/uL 4.4-11.0 [facility] Blood erythrocytes count (nu mber/volume)Ordered By: Andrew Carter on 05-20-2022 RBC (Bld) [#/Vol] 4.58 10*6/uL 4.2-5.4 [facility] Blood hemoglobin measurement (mass/volume)Ordered By: Andrew Carter on 05-20-2022 Hemoglobin (Bld) [Mass/Vol] 13.2 g/dL 12.0-15.[address] [facility] Blood lymphocytes/100 leukoc ytesOrdered By: Andrew Carter on 05-20-2022 Lymphocytes/100 WBC (Bld) 35.4 % 19-[address] [facility] Blood monocytes/100 leukocyt esOrdered By: Andrew Carter on 05-20-2022 Monocytes/100 WBC (Bld) 8.4 % 0-[address] [facility] Blood platelet mean volumeOr dered By: Andrew Carter on 05-20-2022 Platelet mean volume (Bld) [Entitic vol] 11.0 fL 6.2-12.[address] [facility] Determination of erythrocyte mean corpuscular volume (MCV)Ordered By: Andrew Carter on 05-20-2022 MCV (RBC) [Entitic vol] 91.0 fL 81-99 [facility] Hematocrit Auto (Bld) [Volum e fraction]Ordered By: Andrew Carter on 05-20-2022 Hematocrit (Bld) [Volume fraction] 41.7 % 37-[address] [facility] Laboratory - Chemistry and C hemistry - challengeOrdered By: Andrew Carter on 05-20-2022 ALP [Catalytic activity/Vol] 90 U/L 45-[address] [facility] ALT [Catalytic activity/Vol] 25 U/L 13-[address] [facility] CO2 [Moles/Vol] 29.0 mmol/L 21.0-32.[address] [facility] Globulin (S) [Mass/Vol] 4.0 g/dL 2.2-4.2 [facility] Urea nitrogen/Creatinine [Mass ratio] 15.2 mg/mg 10-[address] [facility] Laboratory - Hematology and Cell countsOrdered By: Andrew Carter on 05-20-2022 Erythrocyte distribution width (RBC) [Entitic vol] 50.0 fL 35.1-43.[address] [facility] Erythrocyte distribution width (RBC) [Ratio] 15.0 % 11.6-14.[address] [facility] Immature granulocytes/100 WBC (Bld) 0.300 % 0.0-0.[address] [facility] Comment on above: IG% - Immature Granu locytes (promyelocytes, myelocytes and metamyelocytes) > 1% indicates that a LEFT SHIFT is Present. MCH (RBC) [Entitic mass] 28.8 pg 27.0-32.[address] [facility] Nucleated RBC/100 WBC (Bld) [Ratio] 0 % 0-[address] [facility] MCHC Auto (RBC) [Mass/Vol]Or dered By: Andrew Carter on 05-20-2022 MCHC (RBC) [Mass/Vol] 31.7 g/dL 32-36 [facility] No Panel InformationOrdered By: Andrew Carter on 05-20-2022 Estimated GFR (MDRD) Amer 42 mL/min >[address] [facility] Comment on above: GFR Calc Estimated GFR (MDRD) Non-Af Amer 35 mL/min >[address] [facility] Comment on above: Non- GFR Calc Thyroid Stimulating Hormone (TSH) 21.10 uIU/mL 0.358-3.[address] [facility] Vitamin D 25-Hydroxy 25.6 ng/mL [facility] Comment on above: Vitamin D 25(OH) Sta tus Range Deficiency <20 ng/mL (50nmol/L) Insufficiency 20 - 30 ng/mL (50 - 75 nmol/L) Sufficiency 30 - 100 ng/mL (75 - 250 nmol/L) Toxicity >100 ng/mL (>250 nmol/L) Platelets bldOrdered By: Andrew Carter on 05-20-2022 Platelets (Bld) [#/Vol] 269 10*3/uL 150-[address] [facility] Serum or plasma albumin jinny urement (mass/volume)Ordered By: Andrew Carter on 05-20-2022 Albumin [Mass/Vol] 3.9 g/dL 3.2-5.0 [facility] Serum or plasma albumin/glob ulin mass ratioOrdered By: Andrew Carter on 05-20-2022 Albumin/Globulin [Mass ratio] 1.0 {ratio} 0.9-2.[address] [facility] Serum or plasma calcium jinny urement (mass/volume)Ordered By: Andrew Carter on 05-20-2022 Calcium [Mass/Vol] 9.1 mg/dL 8.5-10.1 [facility] Serum or plasma creatinine m easurement (mass/volume)Ordered By: Andrew Carter on 05-20-2022 Creatinine [Mass/Vol] 1.51 mg/dL 0.55-1.02 [facility] Comment on above: The validity of the calculated GFR & GFRAA in patients over 70 years has not been determined. Clinical correlation is essential. Serum or plasma urea nitroge n measurement (mass/volume)Ordered By: Andrew Carter on 05-20-2022 Urea nitrogen [Mass/Vol] 23 mg/dL 7-[address] [facility] Thin prep Papanicolaou smear with manual screeningOrdered By: Andrew Carter on 05-20-2022 Thin prep Papanicolaou smear with manual screening 25 U/L 15-[address] [facility] Thin prep Papanicolaou smear with manual screening 6 5-[address] [facility] No Panel Informationon 01-07 Thyroid Stimulating Hormone (TSH) 3.21 uIU/mL 0.358-3.[address] [facility] Work Phone: [phone] Absolute lymphocyte counton 11-19-2021 Lymphocytes Auto (Unsp spec) [#/Vol] 2.59 10*3/uL 0.83-4.[address] [facility] Work Phone: Basophil percentageon 2021 Basophils/100 WBC (Bld) 1.2 % 0-1 [facility] Work Phone: [phone] Bilirubin [Mass/Vol] 0.40 mg/dL 0.20-1.00 [facility] Work Phone: Comment on above: For patients on eltr ombopag therapy, use of Dimension [place] TBIL is not recommended. Chloride [Moles/Vol] 106 mmol/L 98-107 [facility] Work Phone: [phone] Eosinophils/100 WBC (Bld) 3.5 % 0-[address] [facility] Work Phone: [phone] Glucose [Mass/Vol] 107 mg/dL 74-106 [facility] Work Phone: Comment on above: Fasting Glucose resu lt from 100 to 125 mg/dL suggests IMPAIRED HOMEOSTASIS per A.D.A. criteria. Neutrophils (Bld) [#/Vol] 2.6 10*3/uL 2.0-7.[address] [facility] Work Phone: [phone] Neutrophils/100 WBC (Bld) 43.0 % 47-[address] [facility] Work Phone: [phone] Potassium [Moles/Vol] 4.8 mmol/L 3.5-5.1 [facility] Work Phone: [phone] Protein [Mass/Vol] 7.1 g/dL 6.4-8.2 [facility] Work Phone: [phone] Sodium [Moles/Vol] 139 mmol/L 136-145 [facility] Work Phone: [phone] WBC (Bld) [#/Vol] 6.0 10*3/uL 4.4-11.0 [facility] Work Phone: Blood erythrocytes count (nu mber/volume)on 11-19-2021 RBC (Bld) [#/Vol] 4.15 10*6/uL 4.2-5.4 [facility] Work Phone: Blood hemoglobin measurement (mass/volume)on 11-19-2021 Hemoglobin (Bld) [Mass/Vol] 12.0 g/dL 12.0-15.[address] [facility] Work Phone: Blood lymphocytes/100 leukoc yteson 11-19-2021 Lymphocytes/100 WBC (Bld) 43.4 % 19-[address] [facility] Work Phone: Blood monocytes/100 leukocyt eson 11-19-2021 Monocytes/100 WBC (Bld) 8.7 % 0-10 [facility] Work Phone: Blood platelet mean volumeon 11-19-2021 Platelet mean volume (Bld) [Entitic vol] 11.2 fL 6.2-12.[address] [facility] Work Phone: Determination of erythrocyte mean corpuscular volume (MCV)on 11-19-2021 MCV (RBC) [Entitic vol] 91.1 fL 81-99 [facility] Work Phone: Hematocrit Auto (Bld) [Volum e fraction]on 11-19-2021 Hematocrit (Bld) [Volume fraction] 37.8 % 37-[address] [facility] Work Phone: Laboratory - Chemistry and C hemistry - challengeon 11-19-2021 ALP [Catalytic activity/Vol] 88 U/L 45-[address] [facility] Work Phone: ALT [Catalytic activity/Vol] 26 U/L 13-[address] [facility] Work Phone: CO2 [Moles/Vol] 26.0 mmol/L 21.0-32.[address] [facility] Work Phone: Globulin (S) [Mass/Vol] 3.6 g/dL 2.2-4.2 [facility] Work Phone: Urea nitrogen/Creatinine [Mass ratio] 17.0 mg/mg 10-[address] [facility] Work Phone: Laboratory - Hematology and Cell countson 11-19-2021 Erythrocyte distribution width (RBC) [Entitic vol] 48.8 fL 35.1-43.[address] [facility] Work Phone: Erythrocyte distribution width (RBC) [Ratio] 14.5 % 11.6-14.[address] [facility] Work Phone: Immature granulocytes/100 WBC (Bld) 0.200 % 0.0-0.[address] [facility] Work Phone: Comment on above: IG% - Immature Granu locytes (promyelocytes, myelocytes and metamyelocytes) > 1% indicates that a LEFT SHIFT is Present. MCH (RBC) [Entitic mass] 28.9 pg 27.0-32.[address] [facility] Work Phone: Nucleated RBC/100 WBC (Bld) [Ratio] 0 % 0-[address] [facility] Work Phone: MCHC Auto (RBC) [Mass/Vol]on 11-19-2021 MCHC (RBC) [Mass/Vol] 31.7 g/dL 32-36 [facility] Work Phone: No Panel Informationon 11-19 Estimated GFR (MDRD) Amer 60 mL/min >[address] [facility] Work Phone: Comment on above: GFR Calc Estimated GFR (MDRD) Non-Af Amer 49 mL/min >[address] [facility] Work Phone: Comment on above: Non- GFR Calc Thyroid Stimulating Hormone (TSH) 0.11 uIU/mL 0.358-3.[address] [facility] Work Phone: Vitamin D 25-Hydroxy 34.5 ng/mL [facility] Work Phone: Comment on above: Vitamin D 25(OH) Sta tus Range Deficiency <20 ng/mL (50nmol/L) Insufficiency 20 - 30 ng/mL (50 - 75 nmol/L) Sufficiency 30 - 100 ng/mL (75 - 250 nmol/L) Toxicity >100 ng/mL (>250 nmol/L) Platelets bldon 11-19-2021 Platelets (Bld) [#/Vol] 229 10*3/uL 150-[address] [facility] Work Phone: Serum or plasma albumin jinny urement (mass/volume)on 11-19-2021 Albumin [Mass/Vol] 3.5 g/dL 3.2-5.0 [facility] Work Phone: Serum or plasma albumin/glob ulin mass ratioon 11-19-2021 Albumin/Globulin [Mass ratio] 1.0 {ratio} 0.9-2.[address] [facility] Work Phone: Serum or plasma calcium jinny urement (mass/volume)on 11-19-2021 Calcium [Mass/Vol] 8.5 mg/dL 8.5-10.1 [facility] Work Phone: Serum or plasma creatinine m easurement (mass/volume)on 11-19-2021 Creatinine [Mass/Vol] 1.12 mg/dL 0.55-1.02 [facility] Work Phone: Comment on above: The validity of the calculated GFR & GFRAA in patients over 70 years has not been determined. Clinical correlation is essential. Serum or plasma urea nitroge n measurement (mass/volume)on 11-19-2021 Urea nitrogen [Mass/Vol] 19 mg/dL 7-[address] [facility] Work Phone: Thin prep Papanicolaou smear with manual screeningon 11-19-2021 Thin prep Papanicolaou smear with manual screening 24 U/L 15-[address] [facility] Work Phone: Thin prep Papanicolaou smear with manual screening 7 5-[address] [facility] Work Phone: Absolute lymphocyte counton 09-05-2021 Lymphocytes Auto (Unsp spec) [#/Vol] 1.58 10*3/uL 0.83-4.[address] [facility] Work Phone: Basophil percentageon 09-05- 2021 Basophil percentage 3.5 mg/dL 2.5-4.9 [facility] Phone: [phone] Basophils/100 WBC (Bld) 1.1 % 0-1 [facility] Work Phone: Bilirubin [Mass/Vol] 0.40 mg/dL 0.20-1.00 [facility] Work Phone: Comment on above: For patients on eltr ombopag therapy, use of Dimension [place] TBIL is not recommended. Chloride [Moles/Vol] 111 mmol/L 98-107 [facility] Work Phone: Cholesterol [Mass/Vol] 309 mg/dL <200 [facility] Work Phone: Comment on above: <200 mg/dL Desirable 200-240 mg/dL Borderline >240 mg/dL High Risk Eosinophils/100 WBC (Bld) 3.7 % 0-[address] [facility] Work Phone: Glucose [Mass/Vol] 95 mg/dL 74-106 [facility] Work Phone: Neutrophils (Bld) [#/Vol] 3.0 10*3/uL 2.0-7.[address] [facility] Work Phone: Neutrophils/100 WBC (Bld) 55.2 % 47-[address] [facility] Work Phone: Potassium [Moles/Vol] 4.4 mmol/L 3.5-5.1 [facility] Work Phone: [phone] Protein [Mass/Vol] 7.0 g/dL 6.4-8.2 [facility] Work Phone: [phone] Sodium [Moles/Vol] 141 mmol/L 136-145 [facility] Work Phone: Triglyceride [Mass/Vol] 334 mg/dL <199 [facility] Work Phone: Comment on above: The drugs N-Acetylcy steine and Metamizole may falsely depress this assay.Serum Triglycerides Reference Interval Normal <150 mg/dL Borderline high 150 - 199 mg/dL High 200 - 499 mg/dL Very High > or = 500 mg/dL WBC (Bld) [#/Vol] 5.4 10*3/uL 4.4-11.0 [facility] Work Phone: Blood erythrocytes count (nu mber/volume)on 09-05-2021 RBC (Bld) [#/Vol] 4.08 10*6/uL 4.2-5.4 [facility] Work Phone: Blood hemoglobin measurement (mass/volume)on 09-05-2021 Hemoglobin (Bld) [Mass/Vol] 11.9 g/dL 12.0-15.[address] [facility] Work Phone: Blood lymphocytes/100 leukoc yteson 09-05-2021 Lymphocytes/100 WBC (Bld) 29.2 % 19-[address] [facility] Work Phone: Blood monocytes/100 leukocyt eson 09-05-2021 Monocytes/100 WBC (Bld) 10.4 % 0-10 [facility] Work Phone: Blood platelet mean volumeon 09-05-2021 Platelet mean volume (Bld) [Entitic vol] 10.8 fL 6.2-12.[address] [facility] Work Phone: Determination of erythrocyte mean corpuscular volume (MCV)on 09-05-2021 MCV (RBC) [Entitic vol] 91.7 fL 81-99 [facility] Work Phone: Hematocrit Auto (Bld) [Volum e fraction]on 09-05-2021 Hematocrit (Bld) [Volume fraction] 37.4 % 37-[address] [facility] Work Phone: Laboratory - Chemistry and C hemistry - challengeon 09-05-2021 ALP [Catalytic activity/Vol] 83 U/L 45-[address] [facility] Work Phone: ALT [Catalytic activity/Vol] 25 U/L 13-[address] [facility] Work Phone: CO2 [Moles/Vol] 24.0 mmol/L 21.0-32.[address] [facility] Work Phone: Globulin (S) [Mass/Vol] 3.6 g/dL 2.2-4.2 [facility] Work Phone: Urea nitrogen/Creatinine [Mass ratio] 24.8 mg/mg 10-[address] [facility] Work Phone: Laboratory - Hematology and Cell countson 09-05-2021 Erythrocyte distribution width (RBC) [Entitic vol] 47.9 fL 35.1-43.[address] [facility] Work Phone: Erythrocyte distribution width (RBC) [Ratio] 14.1 % 11.6-14.[address] [facility] Work Phone: Immature granulocytes/100 WBC (Bld) 0.400 % 0.0-0.[address] [facility] Work Phone: Comment on above: IG% - Immature Granu locytes (promyelocytes, myelocytes and metamyelocytes) > 1% indicates that a LEFT SHIFT is Present. MCH (RBC) [Entitic mass] 29.2 pg 27.0-32.[address] [facility] Work Phone: Nucleated RBC/100 WBC (Bld) [Ratio] 0 % 0-[address] [facility] Work Phone: MCHC Auto (RBC) [Mass/Vol]on 09-05-2021 MCHC (RBC) [Mass/Vol] 31.8 g/dL 32-36 [facility] Work Phone: No Panel Informationon 09-05 Estimated GFR (MDRD) Amer 62 mL/min >[address] [facility] Work Phone: Comment on above: GFR Calc Estimated GFR (MDRD) Non-Af Amer 51 mL/min >60 [facility] Work Phone: Comment on above: Non- GFR Calc Parathyroid Hormone (Intact) 11.2 pg/mL 18.4-80.[address] [facility] Work Phone: Thyroid Stimulating Hormone (TSH) 0.10 uIU/mL 0.358-3.[address] [facility] [facility] Work Phone: Vitamin D 25-Hydroxy 32.9 ng/mL [facility] Work Phone: Comment on above: Vitamin D 25(OH) Sta tus Range Deficiency <20 ng/mL (50nmol/L) Insufficiency 20 - 30 ng/mL (50 - 75 nmol/L) Sufficiency 30 - 100 ng/mL (75 - 250 nmol/L) Toxicity >100 ng/mL (>250 nmol/L) Platelets bldon 09-05-2021 Platelets (Bld) [#/Vol] 204 10*3/uL 150-[address] [facility] Work Phone: Serum or plasma albumin jinny urement (mass/volume)on 09-05-2021 Albumin [Mass/Vol] 3.4 g/dL 3.2-5.0 [facility] Work Phone: Serum or plasma albumin/glob ulin mass ratioon 09-05-2021 Albumin/Globulin [Mass ratio] 0.9 {ratio} 0.9-2.[address] [facility] Work Phone: Serum or plasma calcium jinny urement (mass/volume)on 09-05-2021 Calcium [Mass/Vol] 9.4 mg/dL 8.5-10.1 [facility] Work Phone: Serum or plasma cholesterol in HDL measurement (mass/volume)on 09-05-2021 Cholesterol in HDL [Mass/Vol] 42 mg/dL >[address] [facility] Work Phone: Comment on above: The drugs N-Acetylcy steine and Metamizole may falsely depress this assay. Reference Range HDL <40 mg/dL Low HDL Cholesterol HDL >or= 60 mg/dL High HDL Cholesterol Serum or plasma cholesterol in VLDL measurement (mass/volume)on 09-05-2021 Cholesterol in VLDL [Mass/Vol] 67 mg/dL 5-[address] [facility] Work Phone: Serum or plasma creatinine m easurement (mass/volume)on 09-05-2021 Creatinine [Mass/Vol] 1.09 mg/dL 0.55-1.02 [facility] Work Phone: Comment on above: The validity of the calculated GFR & GFRAA in patients over 70 years has not been determined. Clinical correlation is essential. Serum or plasma low density lipoprotein (LDL) cholesterol measurement (mass/volume)on 09-05-2021 Cholesterol in LDL [Mass/Vol] 200 mg/dL 0-[address] [facility] Work Phone: Serum or plasma urea nitroge n measurement (mass/volume)on 09-05-2021 Urea nitrogen [Mass/Vol] 27 mg/dL 7-[address] [facility] Work Phone: Thin prep Papanicolaou smear with manual screeningon 09-05-2021 Thin prep Papanicolaou smear with manual screening 18 U/L 15-[address] [facility] Work Phone: Thin prep Papanicolaou smear with manual screening 6 5-[address] [facility] Work Phone: No Panel Informationon 06-26 Thyroid Stimulating Hormone (TSH) 1.61 uIU/mL 0.358-3.[address] [facility] Work Phone: Culture, urineon 06-12-2021 Bacteria identified Cx Nom (U) Escherichia coli [facility] Work Phone: Absolute lymphocyte counton 05-13-2021 Lymphocytes Auto (Unsp spec) [#/Vol] 2.35 10*3/uL 0.83-4.[address] [facility] Work Phone: Basophil percentageon 2021 Basophils/100 WBC (Bld) 0.9 % 0-1 [facility] Work Phone: Bilirubin [Mass/Vol] 0.40 mg/dL 0.20-1.00 [facility] Work Phone: [phone] Comment on above: For patients on eltr ombopag therapy, use of Dimension [place] TBIL is not recommended. Chloride [Moles/Vol] 107 mmol/L 98-107 [facility] Work Phone: [phone] Eosinophils/100 WBC (Bld) 3.2 % 0-[address] [facility] Work Phone: [phone] Glucose [Mass/Vol] 144 mg/dL 74-106 [facility] Work Phone: Comment on above: Fasting Glucose resu lt greater than or equal to 126 mg/dL suggests DIABETES MELLITUS per A.D.A. criteria. Neutrophils (Bld) [#/Vol] 3.7 10*3/uL 2.0-7.[address] [facility] Work Phone: [phone] Neutrophils/100 WBC (Bld) 53.3 % 47-[address] [facility] Work Phone: [phone] Potassium [Moles/Vol] 4.6 mmol/L 3.5-5.1 [facility] Work Phone: [phone] Protein [Mass/Vol] 7.7 g/dL 6.4-8.2 [facility] Work Phone: Sodium [Moles/Vol] 142 mmol/L 136-145 [facility] Work Phone: [phone] WBC (Bld) [#/Vol] 6.9 10*3/uL 4.4-11.0 [facility] Work Phone: [phone] Blood erythrocytes count (nu mber/volume)on 05-13-2021 RBC (Bld) [#/Vol] 4.32 10*6/uL 4.2-5.4 [facility] Work Phone: [phone] Blood hemoglobin measurement (mass/volume)on 05-13-2021 Hemoglobin (Bld) [Mass/Vol] 13.1 g/dL 12.0-15.[address] [facility] Work Phone: Blood lymphocytes/100 leukoc yteson 05-13-2021 Lymphocytes/100 WBC (Bld) 34.0 % 19-[address] [facility] Work Phone: Blood monocytes/100 leukocyt eson 05-13-2021 Monocytes/100 WBC (Bld) 8.0 % 0-10 [facility] Work Phone: Blood platelet mean volumeon 05-13-2021 Platelet mean volume (Bld) [Entitic vol] 10.7 fL 6.2-12.[address] [facility] Work Phone: Determination of erythrocyte mean corpuscular volume (MCV)on 05-13-2021 MCV (RBC) [Entitic vol] 90.7 fL 81-99 [facility] Work Phone: Hematocrit Auto (Bld) [Volum e fraction]on 05-13-2021 Hematocrit (Bld) [Volume fraction] 39.2 % 37-[address] [facility] Work Phone: Laboratory - Chemistry and C hemistry - challengeon 05-13-2021 ALP [Catalytic activity/Vol] 110 U/L 45-[address] [facility] Work Phone: ALT [Catalytic activity/Vol] 25 U/L 13-[address] [facility] Work Phone: CO2 [Moles/Vol] 28.0 mmol/L 21.0-32.[address] [facility] Work Phone: Globulin (S) [Mass/Vol] 3.9 g/dL 2.2-4.2 [facility] Work Phone: Urea nitrogen/Creatinine [Mass ratio] 20.3 mg/mg 10-[address] [facility] Work Phone: Laboratory - Hematology and Cell countson 05-13-2021 Erythrocyte distribution width (RBC) [Entitic vol] 47.3 fL 35.1-43.[address] [facility] Work Phone: Erythrocyte distribution width (RBC) [Ratio] 14.2 % 11.6-14.[address] [facility] Work Phone: Immature granulocytes/100 WBC (Bld) 0.600 % 0.0-0.[address] [facility] Work Phone: Comment on above: IG% - Immature Granu locytes (promyelocytes, myelocytes and metamyelocytes) > 1% indicates that a LEFT SHIFT is Present. MCH (RBC) [Entitic mass] 30.3 pg 27.0-32.[address] [facility] Work Phone: Nucleated RBC/100 WBC (Bld) [Ratio] 0 % 0-[address] [facility] Work Phone: MCHC Auto (RBC) [Mass/Vol]on 05-13-2021 MCHC (RBC) [Mass/Vol] 33.4 g/dL 32-36 [facility] Work Phone: No Panel Informationon 05-13 Estimated GFR (MDRD) Amer 56 mL/min >[address] [facility] Work Phone: Comment on above: GFR Calc Estimated GFR (MDRD) Non-Af Amer 46 mL/min >[address] [facility] Work Phone: Comment on above: Non- GFR Calc Thyroid Stimulating Hormone (TSH) 4.24 uIU/mL 0.358-3.[address] [facility] Work Phone: Vitamin D 25-Hydroxy 28.0 ng/mL [facility] Work Phone: Comment on above: Vitamin D 25(OH) Sta tus Range Deficiency <20 ng/mL (50nmol/L) Insufficiency 20 - 30 ng/mL (50 - 75 nmol/L) Sufficiency 30 - 100 ng/mL (75 - 250 nmol/L) Toxicity >100 ng/mL (>250 nmol/L) Platelets bldon 05-13-2021 Platelets (Bld) [#/Vol] 235 10*3/uL 150-[address] [facility] Work Phone: Serum or plasma albumin jinny urement (mass/volume)on 05-13-2021 Albumin [Mass/Vol] 3.8 g/dL 3.2-5.0 [facility] Work Phone: Serum or plasma albumin/glob ulin mass ratioon 05-13-2021 Albumin/Globulin [Mass ratio] 1.0 {ratio} 0.9-2.[address] [facility] Work Phone: Serum or plasma calcium jinny urement (mass/volume)on 05-13-2021 Calcium [Mass/Vol] 9.0 mg/dL 8.5-10.1 [facility] Work Phone: Serum or plasma creatinine m easurement (mass/volume)on 05-13-2021 Creatinine [Mass/Vol] 1.18 mg/dL 0.55-1.02 [facility] Work Phone: Comment on above: The validity of the calculated GFR & GFRAA in patients over 70 years has not been determined. Clinical correlation is essential. Serum or plasma urea nitroge n measurement (mass/volume)on 05-13-2021 Urea nitrogen [Mass/Vol] 24 mg/dL 7-[address] [facility] Work Phone: Thin prep Papanicolaou smear with manual screeningon 05-13-2021 Thin prep Papanicolaou smear with manual screening 18 U/L 15-[address] [facility] Work Phone: Thin prep Papanicolaou smear with manual screening 7 5-[address] [facility] Work Phone: CNNURSEon 07-24-2020 CNNURSE Nurse Visit (COVABA) FLOR SEWELL ([id number]) 1935 F 2ndextmod Date Time Provider Department 07/24/20 9:05 AM COVID VACCINE [facility] During your visit today, we recorded the following information about you: Referring Provider: CLAIRE CASH JR [[id number]] Allergies As of Date: 07/24/2020 (Not on File) Date Reviewed: Never Reviewed Order(s):MODERNA COVID-19 VACCINE [[id number]] Order #: [id number] MODERNA SARS-COV-2 VACCINE 2ND DOSE APPT [[id number]] Order #: [id number] FUTURE Problem List As Of Date: 07/24/2020 (None) Encounter Status:Closed by CL[facility]URE [facility] on 07/25/20 [facility] XR Chest 2 Viewson XR Chest 2 views EXAMINATION TYPE: XR Chest 2 Views DATE OF EXAM : 07/15/2020 4:17 PM HISTORY: cough, COMPARISON: 03/15/2020 FINDINGS: Cardiac and mediastinal silhouettes have not changed. Lungs are clear. There are no pulmonary infiltrates or pleural effusions. IMPRESSION: No acute abnormality. [place] thanks you for the opportunity to care for your patient. Workstation ID: [id number] - [id number] FINAL REPORT Dictated By: Laci Andrews MD 07/16/2020 07:49 Assigned Physician: Laci Andrews MD Reviewed and Electronically Signed By: Laci Andrews MD 07/16/2020 07:50 Transcribed by: ROD 07/16/2020 07:49 Technologist: ANKITA [facility] Mammo Digital Screen bila t w heide(NB)on 04-17-2020 SD Mammo Digital Screen bilat w heide(NB) EXAMINATION TYPE: MA Mammo Digital Screen bilat w heide(NB) DATE OF EXAM : 04/17/2020 11:31 AM Digital Breast Tomosynthesis Screening Mammogram with Computer Aided Detection PATIENT HISTORY: Menarche at age 14. Patient has no children. Postmenopausal. Estrogen for 5 years from age 54 until age 59. Hormonal Contraceptives for 20 years from age 23 until age 43. PRIOR STUDIES: 06/12/2014, 11/20/2015, 12/22/2016, 01/12/2018, 03/31/2019 REASON FOR STUDY: Breast Screening. TECHNIQUE: Multiple low dose images were obtained in each projection. These low-dose images were reconstructed into 1 mm thick slices and reviewed on the soft copy workstation along with additional reconstructed standard digital bilateral mammogram images. Computer-aided detection utilizing [employer] reader has been performed. BREAST COMPOSITION: The breast tissue is heterogeneously dense, which may obscure small masses FINDINGS: There are no suspicious abnormalities. There has been no significant interval change. IMPRESSION: No Digital Breast Tomosynthesis evidence for malignancy. Given patient's dense breast parenchyma, she may benefit from supplemental screening such as an automated breast ultrasound screen (ABUS) or screening breast MRI evaluation. BI-RADS Code: 1-Negative RECOMMENDATION: 1. Screening Tomosynthesis in 1 year COMMENTS: Results of this examination will be immediately mailed to the patient. [place] thanks you for the opportunity to care for your patient. Workstation ID: [id number] - [id number] FINAL REPORT Dictated By: Blanca Jennings MD 04/17/2020 14:54 Assigned Physician: Blanca Jennings MD Reviewed and Electronically Signed By: Blanca Jennings MD 04/17/2020 14:55 Transcribed by: ROD 04/17/2020 14:54 Technologist: SARAH BETH Easley [facility] MRI Brain w/o Contraston MR Brain WO contrast EXAMINATION TYPE: MRI Brain w/o Contrast DATE OF EXAM: 04/17/2020 11:54 AM HISTORY: Auditory hallucinations. Patient reports hearing voices in left ear, symptoms times months, history of bladder cancer. Patient reports no smoking history. COMPARISON: MRI from 06/18/16. FINDINGS: Normal diffusion with no findings indicative of acute or recent subacute ischemia. Cerebellar tonsils and 4th ventricle are normal in position. No midline shift or mass effect. No extra-axial collection. Ventricular system and cisternal spaces are normal in caliber. Flow is shown in the major intracranial vessels. Normal cerebellum. Unchanged areas of hyperintensity involving the brainstem due to remote ischemic injury. No change in numerous bilateral hemispheric T2 hyperintense white matter foci compatible with chronic small vessel ischemic disease. No abnormal intracranial blood products on the gradient sequence. Unremarkable orbits and internal auditory canals on this routine exam. There is mucosal thickening of the right maxillary sinus. The mastoids and middle ears are aerated. IMPRESSION: No change in chronic ischemic disease which is at least moderate in extent. No acute findings. [place] thanks you for the opportunity to care for your patient. Workstation ID: [id number] - [id number] FINAL REPORT Dictated By: Luiz Corado MD 04/17/2020 12:24 Assigned Physician: Luiz Corado MD Reviewed and Electronically Signed By: Luiz Corado MD 04/17/2020 12:31 Transcribed by: ROD 04/17/2020 12:24 Technologist: GRACIELA Normal [facility] XR Chest 2 Viewson 0 XR Chest 2 views EXAMINATION TYPE: XR Chest 2 Views DATE OF EXAM : 03/15/2020 10:49 AM HISTORY: Cough, COMPARISON: 12/23/2016 FINDINGS: Cardiac and mediastinal silhouettes are unremarkable. Lungs are clear. There are no pulmonary infiltrates or pleural effusions. IMPRESSION: No acute abnormality. [facility] thanks you for the opportunity to care for your patient. Workstation ID: [id number] - [id number] FINAL REPORT Dictated By: Laci Andrews MD 03/15/2020 13:38 Assigned Physician: Laci Andrews MD Reviewed and Electronically Signed By: Laci Andrews MD 03/15/2020 13:38 Transcribed by: [facility] 03/15/2020 13:38 Technologist: BENTON Normal [facility] BMPon 03-10-2019 Anion gap [Moles/Vol] 11 mmol/L Normal 5-15 [place] Comment on above: Performed By: #### 2 [id number], [id number], [id number], [id number], [id number] #### [facility] [address] [place] [address] Calcium [Mass/Vol] 9.3 mg/dL Normal 8.5-10.1 [facility] Comment on above: Performed By: #### 2 [id number], 5517619, 4253708, [id number], [id number] #### [facility] [address] [place] [address] Chloride [Moles/Vol] 106 mmol/L Normal 98-107 [facility] Comment on above: Performed By: #### 2 [id number], [id number], 7622922, 6678852, [id number] #### [facility] [address] [place] [place] [address] CO2 [Moles/Vol] 26 mmol/L Normal 21-32 [facility] Comment on above: Performed By: #### 2 085864, 9336796, 8020686, 8943556, [id number] #### [facility] [address] [place] [address] Creatinine [Mass/Vol] 0.96 mg/dL Normal 0.60-1.30 [place] Comment on above: Performed By: #### 2 839932, 7731780, 2091293, 6264096, [id number] #### [facility] [address] [place] [address] Glucose [Mass/Vol] 91 mg/dL Normal 74-106 [facility] Comment on above: Performed By: #### 2 226033, 1883365, 6519125, 3392938, [id number] #### [facility] [address] [place] [address] Potassium [Moles/Vol] 4.9 mmol/L Normal 3.5-5.1 [place] Comment on above: Performed By: #### 2 750066, 4768403, 6802160, 9724132, [id number] #### [facility] [address] [place] [address] Sodium [Moles/Vol] 138 mmol/L Normal 136-145 [facility] Comment on above: Performed By: #### 2 588311, 5997322, 9894459, 7523675, [id number] #### [facility] [address] [place] [address] Urea nitrogen [Mass/Vol] 21 mg/dL High 7-18 [facility] Comment on above: Performed By: #### 2 314262, 4663506, 4944925, 9704819, [id number] #### [facility] [address] [place] [address] eGFRon 03-10-2019 GFR/1.73 sq M predicted among non-blacks MDRD (S/P/Bld) [Vol rate/Area] mL/min/{1.73_m2} [facility] Comment on above: Result Comment: AfAm = UNITS=mL/min/1.73 m2 Normal Reference Ranges is >60. Persistent reduction of eGFR (<60) for 3 months or more defines chronic kidney disease, while eGFR <15 indicates renal failure. Patients with eGFR values >= 60 may also have CKD if evidence of persistent proteinuria is present. Performed By: #### 2 231840, 4129262, 3828456, 9482842, [id number] #### [facility] [address] [place] [address] GFR/1.73 sq M predicted among non-blacks MDRD (S/P/Bld) [Vol rate/Area] 56 mL/min/{1.73_m2} [facility] Comment on above: Result Comment: Norm al Reference Range is >60. Performed By: #### 2 560045, 8786017, 6674843, 8555639, [id number] #### [facility] [address] [place] [address] Main OR IntraOperative Recor don 01-06-2019 Main OR IntraOperative Record [facility] IntraOp Record - OR Summary Primary Physician: MD Luciano David M Finalized Date/Time: 01/06/19 12:11:27 Pt. Name: LUCEROFLORO.B./Sex: 1935 Female Med Rec #: [id number] Physician: MD [place], Rohit Coello Financial #: [id number] Pt. Type: I Room/Bed: 1/A Admit/Disch: 12/23/18 11:00:00 - 12/26/18 19:10:00 Institution: [facility] - Case Attendees - OR Entry 1 Entry 2 Entry 3 Case Attendee MD Ankita, Rhys [place] MD, Erik Simons Role Performed Surgeon - Primary Anesthesiologist of [place] Record Time In 12/24/18 08:13:00 12/24/18 08:13:00 12/24/18 08:13:00 Time Out 12/24/18 09:16:00 12/24/18 09:16:00 12/24/18 09:16:00 Procedure OPEN REDUCTION INTERNAL OPEN REDUCTION INTERNAL OPEN REDUCTION INTERNAL FIXATION PATELLA(Right) FIXATION PATELLA(Right) FIXATION PATELLA(Right) Vendors A - F Vendors G - O Vendors P - Z Surgery, Non-Staff Last Modified By: Erik Yanez Kelee R. Tritipo, Kelee R. 12/24/18 09:21:48 12/24/18 09:21:48 12/24/18 09:21:48 Entry 4 Entry 5 Entry 6 Case Attendee Amanuel, Radha Martines, Kaylie Davies Role Performed Scrub Technologist [place] Assist Household Appliance Repairer Time In 12/24/18 08:13:00 12/24/18 08:13:00 12/24/18 08:13:00 Time Out 12/24/18 09:16:00 12/24/18 09:16:00 12/24/18 09:16:00 Procedure OPEN REDUCTION INTERNAL OPEN REDUCTION INTERNAL OPEN REDUCTION INTERNAL FIXATION PATELLA(Right) FIXATION PATELLA(Right) FIXATION PATELLA(Right) Vendors A - F Vendors G - O Vendors P - Z Surgery, Non-Staff Last Modified By: Erik Yanez Kelee R. Tritipo, Kelee R. 12/24/18 09:21:48 12/24/18 09:21:48 12/24/18 09:21:48 [facility] - Case Times - OR Entry 1 Patient In Room Time 12/24/18 08:13:00 Out Room Time 12/24/18 09:16:00 Surgery/Procedure Start Time 12/24/18 08:29:00 Stop Time 12/24/18 09:09:00 Last Modified By: Erik Yanez 12/24/18 09:21:41 [facility] - Cautery - OR Pre-Care Text: A.50 - Assesses appropriate use of equipment Im.50 - Implements protective measures to prevent injury due to electrical sources Im.60 - Uses supplies and equipment within safe parameters Entry 1 ESU Type ESU BOVIE ?# 2 MEDTRONIC/COVIDIEN FT10 SN: [id number] Grounding Pad Details Verified By Erik Yanez Grounding Pad Site Back upper ESU Settings Cut Setting 40 Coag Setting 40 Last Modified By: Erik Yanez 12/24/18 08:35:44 Post-Care Text: E.10 - Evaluates for signs and symptoms of physical injury to skin and tissue O.70 - Patient is free from signs and symptoms of electrical injury [facility] - Counts Verification - OR Pre-Care Text: A.70 - Assesses risk for retained surgical items Im.20 - Performs required counts Entry 1 Procedure OPEN REDUCTION INTERNAL FIXATION PATELLA(Right) Initial Count (Im.20) Items Included in Sharps, Sponges Initial Count Erik Yanez, the Initial Count Performed By Radha Vital Additional Count Final Count (Im.20) Items Included in Sharps, Sponges Final Count Result Correct Final Count Final Count Erik Yanez, Surgeon Notified of Yes Performed By Radha Vital Final Count Result Outcome Met (O.20) Yes Last Modified By: Erik Yanez 12/24/18 09:07:31 Post-Care Text: E.50 - Evaluates results of the surgical count O.20 - Free from unintended retained foreign objects [facility] - Dressing/Packing - OR Pre-Care Text: A.240 - Assesses baseline skin condition Im.290 Administer care to wound sites Entry 1 Procedure OPEN REDUCTION INTERNAL FIXATION PATELLA(Right) Dressing Item Details Dressing Item 4x4's, ABD, Valdez Bandage (Im.290) Site Operative Site Site Details Right Last Modified By: Erik Yanez 12/24/18 08:38:57 Post-Care Text: E.200 - Evaluates progress of wound healing O.200 - Wound is consistent with the stages of wound healing or improved from baseline levels [facility] - General Case Data - OR Pre-Care Text: A.350.1 - Classifies surgical wound Entry 1 Case Information OR [facility] AddOn Case Level Major Wound Class 1 - Clean Specialty Orthopedic (SN) ASA Class 2 Preop Diagnosis RIGHT PATELLA FX Postop Same As Preop Yes Postop Diagnosis RIGHT PATELLA FX Last Modified By: Erik Yanez 12/24/18 08:39:56 [facility] - Fire Risk Assessment - OR Entry 1 Fire Risk Assessment Score Is the surgical or No (0 pt) Oxygen administered No (0 pt) incision site above in oxygen rich the Xiphoid environment Ignition source Yes (1pt) (ESU, Laser or Fiberoptic Light Source) present Plan and Intervention Low Risk (1-2) Standard fire safety precautions in place, Let prep dry for at least 3 mins, Protect heat sources (i.e. cautery mora), Employ standard draping procedures Last Modified By: Erik Yanez 12/24/18 08:39:20 [facility] - Implant Log - OR Pre-Care Text: Im.130 - Manages implantable devices Entry 1 Entry 2 Procedure OPEN REDUCTION INTERNAL OPEN REDUCTION INTERNAL FIXATION PATELLA(Right) FIXATION PATELLA(Right) Implant Implant Implant If serial and lot number is not available, type NA. DO NOT ADD SLASH. Record Lot number if no serial number. Implant Identification (Im.130) Description IMPLANT 20G WIRE WIRE FIXATION ERNESTO 9.0 X 0.062 TROCAR BOTH ENDS N/S Size 20 0.062 Serial Number na na Eyewear Consultant na [employer]RE Catalog Number na [id number] Lot/Batch Number na na Device Identifier na na Expiration Date 01/06/19 01/06/19 Human Readable GABRIELLE na na Machine Readable GABRIELLE Manufactuer Model Number Materials Manufactured Date MR Classification Usage Data (E.30) Implant/Explant Site Patella Patella Quantity Implanted 1.00 2.00 Reason for Explant Reason Not Retained Explant Disposition Autoclave Load 03/30/18, #011 ?#/Date Solution/Medication Used Add lot number and expiration date of med/solution used Implanted By Outcome Met (O.30) Yes Yes Last Modified By: Olga Lyman Elizabeth Ann 01/06/19 12:11:23 01/06/19 12:11:23 [facility] - Patient Positioning - OR Pre-Care Text: Im.40 - Positions the patient Im.80 - Applies safety devices Entry 1 Procedure OPEN REDUCTION INTERNAL Body Position Semi-Fowlers FIXATION PATELLA(Right) Body in Alignment Yes Left Arm Position Extended on padded arm board Right Arm Position Extended on padded arm Left Leg Position Extended board Right Leg Position Extended Pressure Points Yes Checked Extremities Secured Yes Positioning Device Arm Boards, Pillow, (if applicable)? Safety Strap Positioned By Erik Yanez Burgoon, Lauren E Last Modified By: Erik Yanez 12/24/18 08:40:46 Post-Care Text: E.10 - Evaluates for physical injury to skin and tissue O.80 - Free from injury related to positioning [facility] - Safety Checklist 1) Sign In - OR Pre-Care Text: A.10 - Confirms patient identity A.20 - Verifies operative procedure, surgical site, side, and level A.20.1 Verifies consent for planned procedure Im.10 - Implements protective measures prior to operative or invasive procedure Entry 1 Patient identity, Yes ID band Yes , site, applied/existing procedure, and consent confirmed Site marked per Yes Allergies reviewed, Yes policy allergy band applied/existing Critical Zone Yes Fall Precautions In Yes Protocol Observed Place Last Modified By: Erik Yanez 12/24/18 08:41:39 [facility] - Safety Checklist 2) Time Out - OR Pre-Care Text: Im.70 - Implements the time out process Entry 1 Procedure(s) OPEN REDUCTION INTERNAL Entire surgical Yes FIXATION PATELLA(Right) team involved All team members Yes Site is marked and Yes verbally confirm visible patient/ / site/procedure/conse nt Surgeon reviews Yes Anesthesia team Yes critical or reviews any unexpected steps, patient-specific operative duration, concerns and anticipaited blood loss Is essential Yes Prophylactic Yes imaging displayed? Antibiotic Administered Time Out Time 12/24/18 08:27:00 Last Modified By: Erik Yanez 12/24/18 08:42:37 Post-Care Text: E.30 - Evaluates verification process for correct patient, procedure, site, side, and level [facility] [place] - Safety Checklist 3) Sign Out - OR Entry 1 Nurse verbally Yes Does the procedure Yes confirms with the agree with the team the name of consent? the procedure(s), pre, and postop diagnosis Does the procedure Yes agree with the surgery schedule? Last Modified By: Erik Yanez 12/24/18 08:42:41 Post-Care Text: O.30 - Patient receives the correct procedure on the correct site, side, and level [facility] [place] - Skin Assessment - OR Entry 1 Operative site skin Yes Skin Integrity Intact assessment completed Intraop Skin Abnormality No Last Modified By: Erki Yanez 12/24/18 08:42:49 [facility] [place] - Skin Prep - OR Entry 1 Skin Prep Prep Agents (Im.270) Chloraprep Prep By Erik Yanez Prep Area (Im.270) Circumferential, Leg, Prep Area Details Right Foot Hair Removal Hair Removal Methods No hair removal performed in OR Last Modified By: Erik Yanez 12/24/18 08:41:31 [facility] [place] - Surgical Procedures - OR Entry 1 Procedure Description Procedure OPEN REDUCTION INTERNAL Modifiers Right FIXATION PATELLA Additional KWIRE AND WIRE FIXATION Procedure Detail Primary Procedure Yes Primary Surgeon MD Luciano David M Start 12/24/18 08:29:00 Stop 12/24/18 09:09:00 Anesthesia Type General Surgical Service Orthopedic (SN) Wound Class 1 - Clean Procedure Code 07210 TREAT KNEECAP FRACTURE Last Modified By: Erik Yanez 12/24/18 09:22:36 Post-Care Text: Primary Closure: Closure of the skin level during the original surgery, regardless of the presence of wires, mónica, drains, or other devices or objects extruding through the incision. Non-Primary Closure: Closure in which the incision is left completely open at the skin level, but may include deep fascia closure. [facility] [place] - Tourniquet - OR Pre-Care Text: A.50 - Assesses appropriate use of equipment A.50.1 - Assesses appropriate use of patient safety devices Im.60 - Manages supplies and equipment within safe parameters Im.120 - Implements protective measures to prevent skin/tissue injury due to mechanical sources Entry 1 Tourniquet Type TOURNIQUET, B DINA Cuff Size 30 cm [id number] Setting 300 mmHg Placement Thigh Padding (Im.120) Yes Placement Details Right Applied By MD Luciano David M Inflated 12/24/18 08:29:00 Last Modified By: Erik Yanez 12/24/18 08:30:34 Post-Care Text: E.10 - Evaluates for physical injury to skin and tissue E. 270 - Evaluates tissue perfusion O.210 - Tissue perfusion is consistent with or improved from baseline levels O.60 - Free from injury caused by equipment, medical supplies, or instrumentation [facility] [place] - Transport to Recovery - OR Entry 1 Post-op Destination RECOVERY Via Bed Transport and Care Yes Transported By MD Stanislav, Eamon Fried, Erik Cazares Reported to Receiving Nurse? Last Modified By: Erik Yanez 12/24/18 09:08:03 Case Comments Finalized By: Olga Lyman Document Signatures Signed By: Erik Yanez 12/24/18 09:22 Olga Lyman 01/06/19 12:05 Olga Lyman 12/26/18 08:05 Olga Lyman 01/06/19 12:11 Unfinalized History Date/Time Username Reason for Unfinalizing Freetext Reason for Unfinalizing 12/26/18 07:53 [facility] Modify Pick List 01/06/19 11:38 [facility] Modify Pick List 01/06/19 12:08 [facility] Modify Pick List [facility] Education Noteon 12-26-2018 Education Note Patient Education Instructions Name: LUCERO FLOR Coello Current Date: 12/26/2018 18:25:25 The following sheet(s) are the Patient Education Leaflets for FLOR SEWELL Orthopedics Knee Fracture, Adult A knee fracture is a break in a bone of the knee. The break may be in the kneecap (patella), the lower part of the thigh bone (femur), or the upper part of the delgado bone (tibia). There are several types of fractures. They include: ? Stable. In this type of fracture, the bones of the knee remain in place after the break. ? Displaced. In this type of fracture, the bones no longer line up after the break. ? Comminuted. In this type of fracture, the bone breaks into several pieces. ? Open. In this type of fracture, the broken bone comes through the skin. CAUSES This injury is usually caused by a fall. This injury can happen because of the impact of the fall or from a violent contraction of the leg muscles before you hit the ground. It can also result from a car accident or a collision with a hard surface. RISK FACTORS This injury is more likely to develop in people who: ? Are male. ? Are 20?50 years old. ? Participate in high-energy sports. ? Have a condition that weakens the bones, such as osteoporosis. ? Have had a knee replacement. SYMPTOMS Symptoms of this injury include: ? Pain. ? Swelling. ? Bruising. ? Inability to bend your knee. ? Misshapen knee. ? Inability to walk. ? Inability to use your injured leg to support your body weight. DIAGNOSIS This injury is diagnosed with a physical exam. Your health care provider may also order: ? Imaging studies, such as an X-ray, CT scan, MRI scan, or ultrasound. ? A procedure called arthroscopy to view the inside of your knee with a small camera. TREATMENT Treatment for this injury may involve: ? Wearing a splint until swelling goes down. ? Wearing a cast to keep the fractured bone from moving while it heals. A cast is usually put on after swelling has gone down. ? Surgery to move a bone back into place. HOME CARE INSTRUCTIONS If You Have a Splint: ? Wear it as directed by your health care provider. Remove it only as directed by your health care provider. ? Loosen the splint if your toes become numb and tingle, or if they turn cold and blue. ? Do not put pressure on any part of your splint. If You Have a Cast: ? Do not stick anything inside the cast to scratch your skin. Doing that increases your risk of infection. ? Check the skin around the cast every day. Report any concerns to your health care provider. You may put lotion on dry skin around the edges of the cast. Do not apply lotion to the skin underneath the cast. Bathing ? Cover the cast or splint with a watertight plastic bag to protect it from water while you take a bath or a shower. Do not let the cast or splint get wet. Managing Pain, Stiffness, and Swelling ? If directed, apply ice to the injured area: ? Put ice in a plastic bag. ? Place a towel between your skin and the bag. ? Leave the ice on for 20 minutes, 2?3 times a day. ? Move your toes often to avoid stiffness and to lessen swelling. ? Raise the injured area above the level of your heart while you are lying down. Driving ? Do not drive or operate heavy machinery while taking pain medicine. ? Do not drive while wearing a cast or splint on a hand or foot that you use for driving. Activity ? Return to your normal activities as directed by your health care provider. Ask your health care provider what activities are safe for you. General Instructions ? Do not put pressure on any part of the cast or splint until it is fully hardened. This may take several hours. ? Keep the cast or splint clean and dry. ? Do not use any tobacco products, including cigarettes, chewing tobacco, or electronic cigarettes. Tobacco can delay bone healing. If you need help quitting, ask your health care provider. ? Take medicines only as directed by your health care provider. ? Keep all follow-up visits as directed by your health care provider. This is important. SEEK MEDICAL CARE IF: ? You have knee pain and swelling. ? You have trouble walking. ? Your cast becomes wet or damaged or suddenly feels too tight. SEEK IMMEDIATE MEDICAL CARE IF: ? Your pain and swelling get worse. ? You have severe pain below the fracture. ? Your skin or toenails turn blue or cm, feel cold, or become numb. ? You have fluid, blood, or pus coming from under your cast. This information is not intended to replace advice given to you by your health care provider. Make sure you discuss any questions you have with your health care provider. Document Released: 02/02/2007 Document Revised: 04/12/2015 Document Reviewed: 11/21/2014 [employer] Interactive Patient Education ?2017 [employer]. [facility] Inpatient Clinical Summaryon 12-26-2018 Inpatient Clinical Summary Clinical Summary Clinical Discharge Instructions Person Information Name: FLOR SEWELL Sex: Female : 1935, Age: 83 Years Race: White Ethnicity: Not , , or Malaysian Origin Preferred Language: [place] [facility]: [id number] Address and Phone: [facility] [place] [id number], Care Team Primary Care Physician: MD Akers Greg Admitting Physician: MD Callahan Douglas A Attending Physician: MD Callahan Douglas A Consulting Physician: MD Ankita, Rhys Callahan MD, Douglas A Allergy: No Known Medication Allergies Discharge Information Discharge Diagnosis: 1:Postoperative hypertension; 2:Displaced transverse fracture of right patella, initial encounter for closed fracture; 3:Benign essential tremor; 4:Unable to ambulate; 5:Acquired hypothyroidism; 6:Gastroesophageal reflux disease; 7:Hyperlipidemia, mixed Discharge Orders Discharge Activity Restrictions As Instructed by Physical Therapy, 50% partial weight bearing to right leg with walker. Discharge Diet Instruction Resume home diet Discharge Disposition 12/26/2018 18:07:00 EDT, Home with Home Health Discharge Patient Instructions Please return if fever/chills, painful/bloody diarrhea, shortness of breath, or fainting. Discharge Wound Care Instructions Dressing to remain in place until 01/02/19. Remove dressing, cleanse with soap and water; then apply dry dressing daily. Keep immobilizer in place at all times, except dressing changes and shower. Home Health Services 12/26/2018 18:16:00 EDT, For Home Health PT Eval and Treat, Homebound Reason(s): Limited Mobility, LIP Face to Face was on: 12/26/2018 18:16:00 EDT, Routine, Stop date 12/26/2018 18:16:00 EDT Assessment and Plan Medications During the course of your visit, your medication list was updated with the most current information. The details of those changes are reflected below: New Medications hydrocodone-acetamin ophen (Cowiche 5 mg-325 mg oral tablet) 1 tab Oral (given by mouth) every 4 hours (PEDRO) as needed pain, moderate (4-6) for 7 Days. Refills: 0. Medications to Continue Taking That Have Changed START: losartan (losartan 100 mg oral tablet) 2 tab Oral (given by mouth) every evening. STOP: losartan (losartan 100 mg oral tablet) 1 tab Oral (given by mouth) every evening. Medications to Continue with No Changes aspirin (aspirin 81 mg oral delayed release tablet) 1 tab Oral (given by mouth) every day. atorvastatin (atorvastatin 20 mg oral tablet) 1 tab Oral (given by mouth) every day. cholecalciferol (Vitamin D3) cyanocobalamin (Vitamin B12) 1,000 Micrograms Oral (given by mouth) every day. levothyroxine 88 Micrograms Oral (given by mouth) every day. multivitamin (multivitamin adult, oral tablet) 1 tab Oral (given by mouth) every day. pantoprazole (pantoprazole 20 mg oral delayed release tablet) 1 tab Oral (given by mouth) every day. propranolol (propranoloL 60 mg oral tablet) 1 tab Oral (given by mouth) every day. rOPINIRole (rOPINIRole 1 mg oral tablet) 1 tab Oral (given by mouth) every evening. No Longer Take the Following Medications glucosamine Oral (given by mouth). Contact Your Physician Prior to Taking the Following Medications None Vital Signs Height/Length Measured: 164 cm Weight Measured: Blood Pressure: Not Valued/70 mmHg Blood Pressure Invasive: Not Valued/Not Valued Blood Pressure Sitting: Not Valued/Not Valued Blood Pressure Standing: / Blood Pressure Supine: Not Valued/Not Valued Blood Pressure with Activity: /Not Valued Body Mass Index (BMI): 23.87 kg/m2 Follow-Up and Patient Education Instruction Information Instructions Knee Fracture, Adult Follow-Up With: Address: When: MD Akers Greg [address] [place] [id number] Within 1 week Comments: Call for follow up appointment With: Address: When: MD Luciano David M [address] [place] [id number] Within 1 week Comments: Call for follow up appointment Future Appointments No Future Appointments Scheduled Discharge Arrangments Additional Instructions: Date:12/26/2018 18:25:24 [facility] Inpatient Patient Summaryon 12-26-2018 Inpatient Patient Summary [address] [address] Patient Discharge Instructions, Orders and Medications __ Name: FLOR SEWELL : 1935 Patient Address: [address] [place] [id number] Patient Discharge Time: Primary Care Provider Name:MD Akers Greg Attending Physician: MD Callahan Douglas A Consulting Physician: MD Luciano David M; MD Callahan Douglas A Allergy:No Known Medication Allergies Immunizations Provided:Immunizatio ns tetanus/diphth/pertu ss (Tdap) adult/adol (12/23/2018) Discharge Diagnosis:1:Postoper ative hypertension; 2:Displaced transverse fracture of right patella, initial encounter for closed fracture; 3:Benign essential tremor; 4:Unable to ambulate; 5:Acquired hypothyroidism; 6:Gastroesophageal reflux disease; 7:Hyperlipidemia, mixed Most Recent Vital Signs: Discharge Orders Discharge Activity Restrictions As Instructed by Physical Therapy, 50% partial weight bearing to right leg with walker. Discharge Diet Instruction Resume home diet Discharge Disposition 12/26/2018 18:07:00 EDT, Home with Home Health Discharge Patient Instructions Please return if fever/chills, painful/bloody diarrhea, shortness of breath, or fainting. Discharge Wound Care Instructions Dressing to remain in place until 01/02/19. Remove dressing, cleanse with soap and water; then apply dry dressing daily. Keep immobilizer in place at all times, except dressing changes and shower. Home Health Services 12/26/2018 18:16:00 EDT, For Home Health PT Eval and Treat, Homebound Reason(s): Limited Mobility, LIP Face to Face was on: 12/26/2018 18:16:00 EDT, Routine, Stop date 12/26/2018 18:16:00 EDT Future Laboratory Orders (if any) Future Radiology Orders (if any) Medications During the course of your visit, your medication list was updated with the most current information. The details of those changes are reflected below: New Medications hydrocodone-acetamin ophen (Cowiche 5 mg-325 mg oral tablet) 1 tab Oral (given by mouth) every 4 hours (PEDRO) as needed pain, moderate (4-6) for 7 Days. Refills: 0. Medications to Continue Taking That Have Changed START: losartan (losartan 100 mg oral tablet) 2 tab Oral (given by mouth) every evening. STOP: losartan (losartan 100 mg oral tablet) 1 tab Oral (given by mouth) every evening. Medications to Continue with No Changes aspirin (aspirin 81 mg oral delayed release tablet) 1 tab Oral (given by mouth) every day. atorvastatin (atorvastatin 20 mg oral tablet) 1 tab Oral (given by mouth) every day. cholecalciferol (Vitamin D3) cyanocobalamin (Vitamin B12) 1,000 Micrograms Oral (given by mouth) every day. levothyroxine 88 Micrograms Oral (given by mouth) every day. multivitamin (multivitamin adult, oral tablet) 1 tab Oral (given by mouth) every day. pantoprazole (pantoprazole 20 mg oral delayed release tablet) 1 tab Oral (given by mouth) every day. propranolol (propranoloL 60 mg oral tablet) 1 tab Oral (given by mouth) every day. rOPINIRole (rOPINIRole 1 mg oral tablet) 1 tab Oral (given by mouth) every evening. No Longer Take the Following Medications glucosamine Oral (given by mouth). Contact Your Physician Prior to Taking the Following Medications None FLOR SEWELL Mode has been given the following list of follow-up instructions, prescriptions, and patient education materials: Follow-up appointments: With: Address: When: MD Leonard, [address] [address] Within 1 week Comments: Call for follow up appointment With: Address: When: MD Ankita, [address] [address] Within 1 week Comments: Call for follow up appointment Future Appointments No Future Appointments Scheduled Discharge Arrangements: Medication leaflets, if any, will display below: Patient education materials, if any, will display below: Knee Fracture, Adult A knee fracture is a break in a bone of the knee. The break may be in the kneecap (patella), the lower part of the thigh bone (femur), or the upper part of the delgado bone (tibia). There are several types of fractures. They include: ? Stable. In this type of fracture, the bones of the knee remain in place after the break. ? Displaced. In this type of fracture, the bones no longer line up after the break. ? Comminuted. In this type of fracture, the bone breaks into several pieces. ? Open. In this type of fracture, the broken bone comes through the skin. CAUSES This injury is usually caused by a fall. This injury can happen because of the impact of the fall or from a violent contraction of the leg muscles before you hit the ground. It can also result from a car accident or a collision with a hard surface. RISK FACTORS This injury is more likely to develop in people who: ? Are male. ? Are 20?50 years old. ? Participate in high-energy sports. ? Have a condition that weakens the bones, such as osteoporosis. ? Have had a knee replacement. SYMPTOMS Symptoms of this injury include: ? Pain. ? Swelling. ? Bruising. ? Inability to bend your knee. ? Misshapen knee. ? Inability to walk. ? Inability to use your injured leg to support your body weight. DIAGNOSIS This injury is diagnosed with a physical exam. Your health care provider may also order: ? Imaging studies, such as an X-ray, CT scan, MRI scan, or ultrasound. ? A procedure called arthroscopy to view the inside of your knee with a small camera. TREATMENT Treatment for this injury may involve: ? Wearing a splint until swelling goes down. ? Wearing a cast to keep the fractured bone from moving while it heals. A cast is usually put on after swelling has gone down. ? Surgery to move a bone back into place. HOME CARE INSTRUCTIONS If You Have a Splint: ? Wear it as directed by your health care provider. Remove it only as directed by your health care provider. ? Loosen the splint if your toes become numb and tingle, or if they turn cold and blue. ? Do not put pressure on any part of your splint. If You Have a Cast: ? Do not stick anything inside the cast to scratch your skin. Doing that increases your risk of infection. ? Check the skin around the cast every day. Report any concerns to your health care provider. You may put lotion on dry skin around the edges of the cast. Do not apply lotion to the skin underneath the cast. Bathing ? Cover the cast or splint with a watertight plastic bag to protect it from water while you take a bath or a shower. Do not let the cast or splint get wet. Managing Pain, Stiffness, and Swelling ? If directed, apply ice to the injured area: ? Put ice in a plastic bag. ? Place a towel between your skin and the bag. ? Leave the ice on for 20 minutes, 2?3 times a day. ? Move your toes often to avoid stiffness and to lessen swelling. ? Raise the injured area above the level of your heart while you are lying down. Driving ? Do not drive or operate heavy machinery while taking pain medicine. ? Do not drive while wearing a cast or splint on a hand or foot that you use for driving. Activity ? Return to your normal activities as directed by your health care provider. Ask your health care provider what activities are safe for you. General Instructions ? Do not put pressure on any part of the cast or splint until it is fully hardened. This may take several hours. ? Keep the cast or splint clean and dry. ? Do not use any tobacco products, including cigarettes, chewing tobacco, or electronic cigarettes. Tobacco can delay bone healing. If you need help quitting, ask your health care provider. ? Take medicines only as directed by your health care provider. ? Keep all follow-up visits as directed by your health care provider. This is important. SEEK MEDICAL CARE IF: ? You have knee pain and swelling. ? You have trouble walking. ? Your cast becomes wet or damaged or suddenly feels too tight. SEEK IMMEDIATE MEDICAL CARE IF: ? Your pain and swelling get worse. ? You have severe pain below the fracture. ? Your skin or toenails turn blue or cm, feel cold, or become numb. ? You have fluid, blood, or pus coming from under your cast. This information is not intended to replace advice given to you by your health care provider. Make sure you discuss any questions you have with your health care provider. Document Released: 02/02/2007 Document Revised: 04/12/2015 Document Reviewed: 11/21/2014 [employer] Interactive Patient Education ?2017 [employer] Additional Instructions: Comment General Information We are happy to serve you. If you don't get better, you should call your doctor. If you are experiencing a medical emergency, go to the Emergency Department. We are very concerned about your general health and safety. For your general health and safety, we encourage you to wear your seatbelt when driving or riding in a vehicle. If you have an infant or child, always use the appropriate infant/child car seat. Medication Instructions If you need a prescription refill, contact your doctor. Take all medications only as directed. Do not take a medication you are allergic to. To help ensure your safety, keep a copy of this discharge instruction to share with your health care provider at your next visit. It contains a copy of your medication list, diagnoses and information about treatment you received here. Many medications can make you feel sleepy, impair your ability to drive, or affect your ability to make good decisions. Some of these medicines can even make you stop breathing when you go to sleep, particularly if several different medicines are combined. For this reason, we ask that you arrange for someone else to give you a ride home, do not operate machinery or make important decisions, and do not take any sleeping pills, pain pills, or drink alcohol for at least 4-6 hours from the time you leave. It is also important to know that the use of narcotic medications can be habit forming. Insurance Information It is your responsibility to give correct and complete billing information. This is important in case there is a need to contact you with test results. Federal law requires us to provide you a medical screening exam and stabilizing treatment for any emergent medical condition found regardless of your insurance or ability to pay. Your insurance company may require pre-authorization or notification of your visit, both of which are your responsibility. We will make every effort to properly bill your insurance company on your behalf. If you need financial assistance, please call . IS IT A STROKE? Act FAST and Check for these signs: FACE Does the face look uneven? ARM Does one arm drift down? SPEECH Does their speech sound strange? TIME Call at any sign of stroke Heart Attack Signs Chest discomfort: Most heart attacks involve discomfort in the center of the chest and lasts more than a few minutes, or goes away and comes back. It can feel like uncomfortable pressure, squeezing, fullness or pain. Discomfort in upper body: Symptoms can include pain or discomfort in one or both arms, back, neck, jaw or stomach. Shortness of breath: With or without discomfort. Other signs: Breaking out in a cold sweat, nausea, or light-headed. Remember, MINUTES DO MATTER. If you experience any of these heart attack warning signs, call to get immediate medical attention! Smoking Cessation: Do Not Smoke. Smoking increases the change of having a heart attack and causes other illnesses which can shorten your lifespan. For information on smoking cessation classes, call [phone]. Congestive Heart Failure (CHF): If you have been diagnosed with Congestive Heart Failure (CHF): Activity as Tolerated. Limit your salt intake. Monitor your weight daily. Call your doctor/practitioner if you gain 3 or more pounds in 1 day, or 5 pounds in 1 week. Notify your doctor/practitioner of worsening symptoms; i.e. increased swelling, increased shortness of breath, and/or fatigue. Be sure to arrange follow-up with your doctor/practitioner. If you are having serious side effects with your medication prior to your next outpatient appointment please call your primary care physician or go to your nearest emergency room. To reduce the potential for suicide: Family/Friends should secure or remove any objects that could assist in committing suicide. In Case of Emergency Dial 911 or nearest Emergency Room National Suicide Prevention Life Line 4-185-055-878-187-ILYW http://www.suicidepr eventionlifeline.org ( ) National [place] on Mental Illness or http://www.cait.org Substance Abuse and Mental Health Services Administration 3-588-RIZHUP-7 http://www.[facility]. v/suicide-prevention ( ) If problems arise, call Crisis Intervention at 668-TALK ([phone]) or [facility]'s Emergency Department is available. It is important to always keep an active list of medications available so that you can share with other providers and manage your medications appropriately. If you have been instructed to stop taking a medication please ensure you also follow up with this information to your Primary Care Physician. Any specific questions regarding your medications and dosages should be discussed with your physician(s) and pharmacist. [facility] would like to thank you for allowing us to assist you with your healthcare needs. The following includes patient education materials and information regarding your injury/illness. Designated Lay Caregiver: (Patient's age 55 years or older or their guardian may designate and adult to provide or assist with after care) Name: Relationship: The following information is to be included as available: Phone Number: Address: Email: No Designated Caregiver or Patient <55 years of age Yes - Patient/Family/Careg iver demonstrates understanding of instructions given Patient/Representati ve Signature: ____ Date:12/26/2018 18:25:25 Relationship to Patient: ____ Patient Name:FLOR SEWELL Mode Witness Signature: ____ Date:12/26/2018 18:25:25 [facility] Extra LTGon 12-25-2018 Extra Light Green Complete [facility] Comment on above: Performed By: #### 2 [id number], [id number], [id number], [id number], [id number] #### [facility] [address] [place] [address] Extra Kev 12-25-2018 Extra Lavender Complete [facility] Comment on above: Performed By: #### 2 916837, [id number], 6696226, [id number], [id number] #### [facility] [address] [place] [address] Orthopedic Progress Noteon 0 12-25-2018 Orthopedic Progress Note Subjective Patient has minimal right knee pain Objective Vital signs lab studies and diagnostic tests reviewed Vitals & Measurements Vitals Signs and Measurements within 24 hours T: 98.1 ?F (Oral) T: 97.9 ?F (Temporal Artery) TMIN: 97.9 ?F (Temporal Artery) TMAX: 98.1 ?F (Oral) HR: 62 (Peripheral) HR: 62 (Monitored) RR: 16 BP: 156/70 SpO2: 94% Intake and Output Oral Intake: 240 mL (12/25/18 EDT) Estimated Blood Loss: 0 mL (12/24/18 EDT) Urine Count: 1 (12/25/18 EDT) Urine Count: 1 (12/25/18 EDT) Oxygen Information Oxygen Flow Rate: 2 L/min (12/24/18 10:29:00 EDT) Oxygen Therapy: Room air (12/25/18 08:53:00 EDT) SpO2: 94 % (12/25/18 06:46:00 EDT) Physical Exam Right knee shows intact incision with no drainage. Right lower extremity is neurocirculatory intact. Diagnostic Results XR C-Arm Tracking CDM 12/24/18 15:59:00 IMPRESSION: Intraprocedural fluoroscopic spot images as above. See separate procedure report for more information. Ordering Provider: Rhys Luciano Signed By: MD Jose, Luana Escobar Assessment/Plan 1. Postoperative hypertension 2. Displaced transverse fracture of right patella, initial encounter for closed fracture Status post ORIF of her right patella, stable Continue visual therapy 50% weightbearing right lower extremity. We will discuss discharge with nurse urban planner in a.m.. 3. Benign essential tremor 4. Unable to ambulate 5. Acquired hypothyroidism 6. Gastroesophageal reflux disease 7. Hyperlipidemia, mixed Orders: ceFAZolin, 2,000 mg = 100 mL, IV Piggyback, Injection, q8h, Prophylaxis, Surgical, Administer over: 30 minutes, First Dose: 12/24/2018 16:00:00 EDT Regular Diet Weight Bearing Status, Lower Extremity Problem List/Past Medical History Acquired hypothyroidism Benign essential hypertension Benign essential tremor Gastroesophageal reflux disease Goiter, toxic, multinodular Hyperlipidemia, mixed Historical No historical problems Procedure/Surgical History OPEN REDUCTION INTERNAL FIXATION PATELLA (Right) (12/24/2018), APPENDECTOMY, Bladder, Eye, REMOVAL OF THYROID. Medications Inpatient acetaminophen, 650 mg, 2 tab, Oral, q4h, PRN Ancef, 2000 mg, 100 mL, IV Piggyback, q8h aspirin, 81 mg, 1 tab, Oral, Daily atorvastatin, 20 mg, 1 tab, Oral, Daily hydrALAZINE, 10 mg, 0.5 mL, IV Push, q6h, PRN lactated ringer's drip 1,000 mL, 1000 mL, IV infusion levothyroxine, 100 mcg, 1 tab, Oral, Daily losartan, 100 mg, 1 tab, Oral, qPM Lovenox, 40 mg, 0.4 mL, Subcutaneous, Daily morphine preservative-free, 4 mg, 1 mL, IV Push, every 3 hr, PRN morphine preservative-free, 2 mg, 0.5 mL, IV Push, every 2 hr, PRN Cowiche 5 mg-325 mg oral tablet, 1 tab, Oral, q4h, PRN Cowiche 5 mg-325 mg oral tablet, 2 tab, Oral, q4h, PRN pantoprazole, 20 mg, 1 tab, Oral, Daily propranolol, 60 mg, 1 cap, Oral, Daily Vitamin B12, 1000 mcg, 1 tab, Oral, Daily Vitamin D3, 2000 IntlUnit, 2 tab, Oral, Daily Home aspirin 81 mg oral delayed release tablet, 81 mg, 1 tab, Oral, Daily atorvastatin 20 mg oral tablet, 20 mg, 1 tab, Oral, Daily glucosamine, Oral levothyroxine, 88 mcg, Oral, Daily losartan 100 mg oral tablet, 100 mg, 1 tab, Oral, qPM multivitamin adult, oral tablet, 1 tab, Oral, Daily pantoprazole 20 mg oral delayed release tablet, 20 mg, 1 tab, Oral, Daily propranoloL 60 mg oral tablet, 60 mg, 1 tab, Oral, Daily rOPINIRole 1 mg oral tablet, 1 mg, 1 tab, Oral, qPM Vitamin B12, 1000 mcg, Oral, Daily Vitamin D3 Allergies No Known Medication Allergies Social History Alcohol Denies use Employment/School Retired Home/Environment Lives with Alone. Nutrition/Health Diet: Regular. Substance Use Denies Tobacco Smoking tobacco use: Never (less than 100 in lifetime). Family History Cancer: Sibling. Diabetes: Father. Heart attack: Sibling. Electronically Signed on 12/25/18 09:01 MD Ankita, Rhys M Normal [facility] PTon 12-25-2018 INR Coag (PPP) [Relative time] 1.13 {INR} Low 2.00-3.00 [facility] Comment on above: Result Comment: Kirk stewart therapeutic range for PT INR: 2.0-3.0. There is no normal reference range established for patient not receiving anticoagulant therapy. Performed By: #### 2 [id number], 0001750, 8547024, [id number], [id number] #### [facility] [address] [place] [address] PT Coag (PPP) [Time] 14.4 s Normal 12.4-14.8 [facility] Comment on above: Performed By: #### 2 [id number], 7186733, 2638336, 9555559, [id number] #### [facility] [address] [place] [address] PTTon 12-25-2018 aPTT Coag (Bld) [Time] 30.1 s Normal 22.8-34.1 [facility] Comment on above: Result Comment: Kirk stewart therapeutic range for PTT: 63-100 sec. Performed By: #### 2 743387, [id number], 7186015, 3066179, [id number] #### [facility] [address] [place] [address] Progress Note Genericon 12-05 Progress Note Generic Subjective Patient reports she feels much better today. She had knee Surgery on Wednesday and says that she was able to stand on her leg today. She denies shortness of breath, nausea/vomiting, or dizziness. She has been eating well and had a bowel movement today. Review of Systems Constitutional: No chills, energy is good, no sweats Respiratory: No shortness of breath, cough Cardiovascular: No Chest pain, palpitations, syncope Gastrointestinal: No nausea, vomiting, diarrhea, heart burn Musculoskeletal: No back pain, neck pain, joint pain, muscle pain, decreased range of motion Periphery: Swelling in right knee with Valdez wrap in place and knee immobilizer in place. Pain in that knee with standing, Integumentary: No rash, pruritus, lesions Neurologic: No headache, dizziness Vitals & Measurements Vitals Signs and Measurements within 24 hours T: 98.6 ?F (Oral) HR: 62 (Peripheral) HR: 66 (Monitored) RR: 18 BP: 133/63 SpO2: 98% Intake and Output Oral Intake: 240 mL (12/25/18 EDT) Estimated Blood Loss: 0 mL (12/24/18 EDT) Urine Count: 1 (12/25/18 EDT) Urine Count: 1 (12/25/18 EDT) Oxygen Information Oxygen Flow Rate: 2 L/min (12/24/18 10:29:00 EDT) Oxygen Therapy: Room air (12/25/18 18:18:00 EDT) SpO2: 98 % (12/25/18 18:18:00 EDT) Physical Exam General: Alert and oriented x 3, no acute distress. Eye: PERRL, no scleral icterus or conjunctival injection. HENT: Normocephalic, mucous membranes are pink and moist. Neck: Supple, trachea midline, non-tender, no carotid bruits, no JVD, no lymphadenopathy. Lungs: Clear to auscultation bilaterally, no dullness to percussion, non-labored respiration, no prolonged expiration. Heart: Normal rate, regular rhythm, no murmur, gallop or rub. Cap refill brisk in all toes Abdomen: Soft, non-tender, non-distended, normal bowel sounds, no masses. Lymphatic: No inguinal or axillary lymphadenopathy Periphery: No clubbing, cyanosis, right knee swelling with Valdez wrap and knee immobilizer. Skin: no rashes or lesions. Neurologic: Awake, alert, and oriented. No facial weakness, Normal coordination. Sensation intact bilateral toes Diagnostic Results No qualifying data available. Assessment/Plan 1. Postoperative hypertension The patient had been started on losartan 200 mg just recently from [address] Akers. Pharmacy here at this hospital does not recommend such a high dose of losartan. Because of this, the patient will be maintained on 100 mg daily and will have added to her regimen amlodipine 5 mg p.o. daily. We will see what her blood pressure does and adjust dosing as needed. 2. Displaced transverse fracture of right patella, initial encounter for closed fracture Status post ORIF. Continue PT OT. 3. Benign essential tremor Continue propranolol unchanged. Control is decent at this time. 4. Unable to ambulate Patient is now able to ambulate with physical therapy. Continue use of wheeled walker with PT. 5. Acquired hypothyroidism Continue levothyroxine at higher dose of 100 mcg p.o. daily. Patient had a TSH of 10 and the dosing change was made. Recheck in 3 months. 6. Gastroesophageal reflux disease 7. Hyperlipidemia, mixed cont statin Orders: amLODIPine, 5 mg, Oral, Tab, Daily, First Dose: 12/25/2018 15:20:00 EDT Problem List/Past Medical History Acquired hypothyroidism Benign essential hypertension Benign essential tremor Gastroesophageal reflux disease Goiter, toxic, multinodular Hyperlipidemia, mixed Historical No historical problems Procedure/Surgical History OPEN REDUCTION INTERNAL FIXATION PATELLA (Right) (12/24/2018), APPENDECTOMY, Bladder, Eye, REMOVAL OF THYROID. Medications Inpatient acetaminophen, 650 mg, 2 tab, Oral, q4h, PRN amLODIPine, 5 mg, 1 tab, Oral, Daily aspirin, 81 mg, 1 tab, Oral, Daily atorvastatin, 20 mg, 1 tab, Oral, Daily hydrALAZINE, 10 mg, 0.5 mL, IV Push, q6h, PRN lactated ringer's drip 1,000 mL, 1000 mL, IV infusion levothyroxine, 100 mcg, 1 tab, Oral, Daily Lovenox, 40 mg, 0.4 mL, Subcutaneous, Daily morphine preservative-free, 4 mg, 1 mL, IV Push, every 3 hr, PRN morphine preservative-free, 2 mg, 0.5 mL, IV Push, every 2 hr, PRN Cowiche 5 mg-325 mg oral tablet, 1 tab, Oral, q4h, PRN Cow[place] 5 mg-325 mg oral tablet, 2 tab, Oral, q4h, PRN pantoprazole, 20 mg, 1 tab, Oral, Daily propranolol, 60 mg, 1 cap, Oral, Daily Vitamin B12, 1000 mcg, 1 tab, Oral, Daily Vitamin D3, 2000 IntlUnit, 2 tab, Oral, Daily Home aspirin 81 mg oral delayed release tablet, 81 mg, 1 tab, Oral, Daily atorvastatin 20 mg oral tablet, 20 mg, 1 tab, Oral, Daily glucosamine, Oral levothyroxine, 88 mcg, Oral, Daily losartan 100 mg oral tablet, 200 mg, 2 tab, Oral, qPM multivitamin adult, oral tablet, 1 tab, Oral, Daily pantoprazole 20 mg oral delayed release tablet, 20 mg, 1 tab, Oral, Daily propranoloL 60 mg oral tablet, 60 mg, 1 tab, Oral, Daily rOPINIRole 1 mg oral tablet, 1 mg, 1 tab, Oral, qPM Vitamin B12, 1000 mcg, Oral, Daily Vitamin D3 Allergies No Known Medication Allergies Social History Alcohol Denies use Employment/School Retired Home/Environment Lives with Alone. Nutrition/Health Diet: Regular. Substance Use Denies Tobacco Smoking tobacco use: Never (less than 100 in lifetime). Family History Cancer: Sibling. Diabetes: Father. Heart attack: Sibling. Electronically Signed on 12/25/18 18:38 MD Lnodon, Rohit Coello [facility] Extra LTGon 12-24-2018 Extra Light Green Complete [facility] Comment on above: Performed By: #### 2 [id number], [id number], [id number], [id number], [id number] #### [facility] [address] [place] [address] Extra [place] 12-24-2018 Extra Lavender Complete [facility] Comment on above: Performed By: #### 2 100535, 2415316, 2344395, 5029119, [id number] #### [facility] [address] [place] [address] FT4on 12-24-2018 Free T4 [Mass/Vol] 1.17 ng/dL Normal 0.76-1.46 [facility] Comment on above: Order Comment: Order added by [email or web address] Performed By: #### 2 304726, 7803317, 2703055, 0623385, [id number] #### [facility] [address] [place] [address] Main OR PACU Recordon 2018 Main OR PACU Record [facility] [place] PostOp PH I - OR Summary Primary Physician: MD Ankita, Rhys Fried Finalized Date/Time: 12/24/18 10:21:24 Pt. Name: FLOR SEWELL Mode Escobar/Sex: 1935 Female Med Rec #: [id number] Physician: MD Callahan Douglas A Financial #: [id number] Pt. Type: O Room/Bed: Admit/Disch: 12/23/18 11:00:00 - Institution: [facility] [place] - Case Attendees - PACU I - OR Entry 1 Entry 2 Case Attendee Cherry Whitt Katherin E Role Performed Nurse - Post Operative Nurse - Other Last Modified By: Cherry Whitt 12/24/18 Cherry Whitt 12/24/18 09:14:32 09:14:32 [facility] [place] - Case Times - PACU I - OR Entry 1 In PACU I/PostProc 12/24/18 09:16:00 Ready for PACU 12/24/18 10:09:00 I/PostProc Discharge Discharge from PACU 12/24/18 10:09:00 I/PostProc Last Modified By: Cherry Whitt 12/24/18 10:21:21 Finalized By: Cherry Whitt Document Signatures Signed By: Cherry Whitt 12/24/18 10:21 [facility] Main OR PreOperative Recordo n 12-24-2018 Main OR PreOperative Record [facility] [place] PreOp Record - OR Summary Primary Physician: MD Luciano David M Finalized Date/Time: 12/24/18 08:12:57 Pt. Name: FLOR SEWELL Mode /Sex: 1935 Female Med Rec #: [id number] Physician: MD Callahan Douglas A Financial #: [id number] Pt. Type: O Room/Bed: Admit/Disch: 12/23/18 11:00:00 - Institution: [facility] [place] - Case Attendees - PreOp - OR Entry 1 Entry 2 Entry 3 Case Attendee Pavithra Moent MD, Eamon Luciano MD, David M Role Performed Nurse - Preoperative Anesthesiologist of Surgeon - Primary Record Last Modified By: Pavithra Monet Barbara A Chapman, Barbara A 12/24/18 07:39:35 12/24/18 07:39:35 12/24/18 07:39:35 [facility] [place] - Case Times - PreOp -OR Entry 1 Patient Arrival Time 12/24/18 07:25:00 Circ. in PreOp 12/24/18 08:06:00 Anesthesia In Preop 12/24/18 07:48:00 Surgeon In Preop 12/24/18 08:10:00 Surgical Site n/a Surgical Site Yes Marked per Policy Verified per Surgeon Surgical Site Yes Patient Ready for 12/24/18 07:39:00 Verified per carding supervisor Transport to OR Time 12/24/18 08:12:00 Last Modified By: Pavithra Monet 12/24/18 08:12:56 Finalized By: Pavithra Monet Document Signatures Signed By: Pavithra Monet 12/24/18 08:12 Normal [facility] Operative Reporton 9 Operative Report Preoperative Diagnosis Right patella fracture Wound Class SN - Proc - Wound Class: 1 - Clean (12/24/18 08:46:34 EDT) Postoperative Diagnosis Same Operation ORIF right patella using qjjkka-[id number]-zftii cerclage wiring Anesthesia Type General Anesthesia (Staff/Doctor) Dr. [place] Surgeon(s) Rhys Palacios MD History/Indication for Surgery Patient is a very pleasant 83-year-old female who fell while walking her dog sustaining a right patella fracture for which risk and benefits of operative intervention were discussed in detail with patient wished to proceed. Reverse protocol was observed. Preoperative antibiotics were given. Intraoperative Findings Displaced right transverse patella fracture Description of Procedure Patient was taken the OR places supine position on the OR table. After adequate general anesthesia was obtained right lower extremity is prepped and draped in sterile fashion. A midline incision 12 cm in length was made through skin subcu tissue to deep fascia. The fracture site was identified debrided of soft tissue interposition hematoma. The bloody effusion was aspirated. We then proceeded with reducing the fracture using bone-holding tenaculums. Fracture reduction was noted to be satisfactory. We then proceeded with placement of 2.062 K wires and a Luiz grade fashion followed by smygon-wq-yfckw cerclage wiring. Overall alignment was noted to be satisfactory with near anatomic alignment under AP lateral oblique projections. The pins were cut distally and then bands were put in the pins proximally and impacted into the proximal patella. The wounds were then jose irrigated normal saline closed in standard layer fashion. All needle sponge counts were correct. Estimated Blood Loss Minimal Drains None Specimen(s) None Complications None Conditions Stable Electronically Signed on 12/24/18 09:31 MD Ankita, Rhys Fried [facility] PTon 12-24-2018 INR Coag (PPP) [Relative time] 1.06 {INR} Low 2.00-3.00 [facility] Comment on above: Result Comment: Kirk stewart therapeutic range for PT INR: 2.0-3.0. There is no normal reference range established for patient not receiving anticoagulant therapy. Performed By: #### 2 [id number], [id number], 0046680, 2995189, [id number] #### [facility] [address] [place] [address] PT Coag (PPP) [Time] 13.7 s Normal 12.4-14.8 [facility] Comment on above: Performed By: #### 2 490980, 5275048, 1274236, 0233966, [id number] #### [facility] [address] [place] [address] PTTon 12-24-2018 aPTT Coag (Bld) [Time] 30.9 s Normal 22.8-34.1 [facility] Comment on above: Result Comment: Kirk stewart therapeutic range for PTT: 63-100 sec. Performed By: #### 2 519806, 8445417, 5288230, 4990520, [id number] #### [facility] [address] [place] [address] Thyr Cascon 12-24-2018 TSH Qn 10.600 m[IU]/L High 0.358-3.740 [facility] Comment on above: Performed By: #### 2 041930, 2830147, 2383106, 6236515, [id number] #### [facility] [address] [place] [address] XR C-Arm Tracking CDMon 12-05 XR C-Arm Tracking CDM EXAMINATION: SPOT FLUOROSCOPIC IMAGES 12/24/2018 9:09 am TECHNIQUE: Fluoroscopy was provided by the radiology department for procedure. Radiologist was not present during examination. FLUOROSCOPY DOSE AND TYPE OR TIME AND EXPOSURES: Reference Air Kerma (mGy): 0.2 COMPARISON: None HISTORY: Intraprocedural imaging. FINDINGS: Two spot images of the patella were obtained. Status post ORIF of the patella. IMPRESSION: Intraprocedural fluoroscopic spot images as above. See separate procedure report for more information. Ordering Provider: Rhys Luciano Final Dictated by: MD Garcia Sarah D Dictated DT/TM: 12/24/2018 3:59 pm Signed by: MD Garcia Sarah D Signed (Electronic Signature): 12/24/2018 3:59 pm Normal [facility] Auto Diffon 12-23-2018 Baso Absolute 0.1 [facility] Comment on above: Order Comment: Order added by [email or web address]. Performed By: #### 2 689663, 3015180, 1449546, 1228729, [id number] #### [facility] [address] [place] [address] Basophils/100 WBC (Bld) 0.8 % Normal 0.0-3.0 F [facility] Comment on above: Order Comment: Order added by GL_CBC_AUTO. Performed By: #### 2 713427, 0768656, 3298896, 8236534, [id number] #### [facility] [address] [place] [address] Eos Absolute 0.2 [facility] Comment on above: Order Comment: Order added by GL_CBC_AUTO. Performed By: #### 2 060796, 4634010, 7617832, 4773200, [id number] #### [facility] [address] [place] [address] Eosinophils/100 WBC (Bld) 2.9 % Normal 0.0-6.0 [facility] Comment on above: Order Comment: Order added by GL_CBC_AUTO. Performed By: #### 2 230734, 0166437, 9609530, 8063611, [id number] #### [facility] [address] [place] [address] Lymphocytes (Bld) [#/Vol] 2.7 10*3/uL [facility] Comment on above: Order Comment: Order added by GL_CBC_AUTO. Performed By: #### 2 177929, 3098158, 0680724, 2067901, [id number] #### [facility] [address] [place] [address] Lymphocytes/100 WBC (Bld) 33.0 % Normal 14.0-47.0 [facility] Comment on above: Order Comment: Order added by GL_CBC_AUTO. Performed By: #### 2 093115, 7423386, 4546162, 0553450, [id number] #### [facility] [address] [place] [address] [place] Absolute 0.8 [facility] Comment on above: Order Comment: Order added by GL_CBC_AUTO. Performed By: #### 2 259276, 0424033, 4897370, 4283623, [id number] #### [facility] [address] [place] [address] Monocytes/100 WBC (Bld) 9.3 % Normal 0.0-10.0 F [facility] Comment on above: Order Comment: Order added by GL_CBC_AUTO. Performed By: #### 2 522217, 0362978, 6300719, 5835327, [id number] #### [facility] [address] [place] [address] Neutro Absolute 4.4 [facility] Comment on above: Order Comment: Order added by GL_CBC_AUTO. Performed By: #### 2 107878, 3803441, 9647951, 9124022, [id number] #### [facility] [address] [place] [address] Neutro Auto 54.0 Normal 43.0-77.0 [facility] Comment on above: Order Comment: Order added by [email or web address]_CBC_AUTO. Performed By: #### 2 630483, 1140145, 6818139, 8347197, [id number] #### [facility] [address] [place] [address] NRBC % 0.0 [facility] Comment on above: Order Comment: Order added by GL_CBC_AUTO. Performed By: #### 2 443201, 3543646, 8883125, 4340321, [id number] #### [facility] [address] [place] [address] BMPon 12-23-2018 Calcium [Mass/Vol] 9.3 mg/dL [facility] Comment on above: Result Comment: Resu lt created by discern rule: [email or web address] Performed By: #### 2 693425, 9795028, 0748526, 9526605, [id number] #### [facility] [address] [place] [address] Anion gap [Moles/Vol] 14 mmol/L Normal 5-15 [place] Comment on above: Performed By: #### 2 922861, 1448572, 1974457, 9726485, [id number] #### [facility] [address] [place] [address] Calcium [Mass/Vol] 9.2 mg/dL Normal 8.5-10.1 [facility] Comment on above: Performed By: #### 2 036532, 7664654, 3604153, 3721340, [id number] #### [facility] [address] [place] [address] Chloride [Moles/Vol] 103 mmol/L Normal 98-107 [facility] Comment on above: Performed By: #### 2 958021, 6582773, 5851590, 0956933, [id number] #### [facility] [address] [place] [address] CO2 [Moles/Vol] 26 mmol/L Normal 21-32 [facility] Comment on above: Performed By: #### 2 234305, 8081440, 6996741, 1922057, [id number] #### [facility] [address] [place] [address] Creatinine [Mass/Vol] 1.01 mg/dL Normal 0.60-1.30 [place] Comment on above: Performed By: #### 2 698068, 8064010, 7931857, 5397798, [id number] #### [facility] [address] [place] [address] Glucose [Mass/Vol] 91 mg/dL Normal 74-106 [facility] Comment on above: Performed By: #### 2 161579, 5128510, 6363663, 1376761, [id number] #### [facility] [address] [place] [address] Potassium [Moles/Vol] 4.5 mmol/L Normal 3.5-5.1 [place] Comment on above: Performed By: #### 2 991813, 6329036, 2073051, 7850219, [id number] #### [facility] [address] [place] [address] Sodium [Moles/Vol] 138 mmol/L Normal 136-145 [facility] Comment on above: Performed By: #### 2 671822, 1008038, 7834819, 8388422, [id number] #### [facility] [address] [place] [address] Urea nitrogen [Mass/Vol] 17 mg/dL Normal 7-18 [facility] Comment on above: Performed By: #### 2 170468, 4868165, 5991449, 7777048, [id number] #### [facility] [address] [place] [address] CBC w/ Diffon 12-23-2018 Erythrocyte distribution width (RBC) [Ratio] 14.9 % Normal 11.0-15.0 [facility] Comment on above: Performed By: #### 2 843266, 8709085, 1008901, 0164438, [id number] #### [facility] [address] [place] [address] Hematocrit (Bld) [Volume fraction] 38.2 % Normal 33.0-45.0 [facility] Comment on above: Performed By: #### 2 579754, 8816929, 7681842, 1666695, [id number] #### [facility] [address] [place] [address] Hemoglobin (Bld) [Mass/Vol] 12.8 g/dL Normal 11.0-15.0 [facility] Comment on above: Performed By: #### 2 925728, 5825867, 0410051, 5360150, [id number] #### [facility] [address] [place] [address] MCH (RBC) [Entitic mass] 29.4 pg Normal 27.0-31.0 [facility] Comment on above: Performed By: #### 2 454179, 5213509, 0935299, 6275818, [id number] #### [facility] [address] [place] [address] MCHC (RBC) [Mass/Vol] 33.4 g/dL Normal 32.0-36.0 [place] Comment on above: Performed By: #### 2 468875, 2753556, 4308929, 5936103, [id number] #### [facility] [address] [place] [address] MCV (RBC) [Entitic vol] 88.0 fL Normal 80.0-100.0 [facility] Comment on above: Performed By: #### 2 955741, 5715045, 9438350, 1586597, [id number] #### [facility] [address] [place] [address] Platelets (Bld) [#/Vol] 208 10*3/uL Normal 144-420 [facility] Comment on above: Performed By: #### 2 124711, 5738703, 9494009, 6580647, [id number] #### [facility] [address] [place] [address] RBC (Bld) [#/Vol] 4.34 10*6/uL Normal 3.60-5.10 [facility] Comment on above: Performed By: #### 2 692280, 4191424, 3292973, 3608848, [id number] #### [facility] [address] [place] [address] WBC (Bld) [#/Vol] 8.2 10*3/uL Normal 4.8-10.8 [facility] Comment on above: Performed By: #### 2 389667, 1220304, 5829968, 9077455, [id number] #### [facility] [address] [place] [address] CT Abdomen and Pelvis w/ Con traston 12-23-2018 CT Abdomen and Pelvis w/ Contrast EXAMINATION: CT OF THE ABDOMEN AND PELVIS WITH CONTRAST 12/23/2018 12:35 pm TECHNIQUE: CT of the abdomen and pelvis was performed with the administration of intravenous contrast. Multiplanar reformatted images are provided for review. Dose modulation, iterative reconstruction, and/or weight based adjustment of the mA/kV was utilized to reduce the radiation dose to as low as reasonably achievable. COMPARISON: None. HISTORY: ORDERING SYSTEM PROVIDED HISTORY: Abdominal pain TECHNOLOGIST PROVIDED HISTORY: Tech Provided Reason for Exam: pt arrives via EMS with the c/o fall. pt states that she tripped on the sidewalk put her arms out to break her fall. c/o left side pain/ right knee pain and bilateral hand pain Denies hitting her head or blood thinners Injury/Trauma or Illness: Injury/Trauma Type of Encounter: Initial Acuity: pt arrives via EMS with the c/o fall. pt states that she tripped on the sidewalk put her arms out to break her fall. c/o left side pain/ right knee pain and bilateral hand pain Denies hitting her head or blood thinners FINDINGS: Lower Chest: Visualized portion of the lower chest demonstrates no acute abnormality. Organs: The liver, spleen, pancreas, gallbladder, adrenal glands, and kidneys demonstrate no acute abnormality. GI/Bowel: No dilated or inflamed loops of bowel. No bowel wall thickening. Pelvis: Trace pelvic free fluid. No pelvic mass, adenopathy, or fluid collection. Peritoneum/Retroperi toneum: No abdominal aortic aneurysm. No adenopathy. No ascites. No free intraperitoneal air. Bones/Soft Tissues: No acute osseus abnormality. IMPRESSION: No acute abnormality in the abdomen or pelvis. Ordering Provider: Noel Mullen Final Dictated by: MD Scott Sriram Dictated DT/TM: 12/27/2018 11:29 pm Signed by: MD Scott Sriram Signed (Electronic Signature): 12/27/2018 11:29 pm [facility] Comment on above: Order Comment: Left upper abdominal pain and left costal margin pain post fall CT Pelvis w/o Contraston CT Pelvis w/o Contrast EXAMINATION: CT OF THE PELVIS WITHOUT CONTRAST 12/23/2018 12:35 pm TECHNIQUE: CT of the pelvis was performed without the administration of intravenous contrast. Multiplanar reformatted images are provided for review. Dose modulation, iterative reconstruction, and/or weight based adjustment of the mA/kV was utilized to reduce the radiation dose to as low as reasonably achievable. COMPARISON: None HISTORY: ORDERING SYSTEM PROVIDED HISTORY: Trauma TECHNOLOGIST PROVIDED HISTORY: Tech Provided Reason for Exam: pt arrives via EMS with the c/o fall. pt states that she tripped on the sidewalk put her arms out to break her fall. c/o left side pain/ right knee pain and bilateral hand pain Denies hitting her head or blood thinners Injury/Trauma or Illness: Injury/Trauma Type of Encounter: Initial Acuity: pt arrives via EMS with the c/o fall. pt states that she tripped on the sidewalk put her arms out to break her fall. c/o left side pain/ right knee pain and bilateral hand pain Denies hitting her head or blood thinners FINDINGS: Bone: Osseous demineralization. No aggressive osseous lesions. No fractures. Sacrum is intact. Lower lumbar vertebral bodies are intact. Joints: Bilateral hip joint effusions. Degenerative changes of pubic symphysis. Degenerative changes of bilateral SI joints. Multilevel degenerative changes. Soft tissue: No focal swelling. Mild gluteal atrophy. No radiopaque foreign body or soft tissue air. Intrapelvic: Diverticulosis without evidence of diverticulitis. No free fluid. IMPRESSION: No acute osseous abnormality. Scattered degenerative changes about the lower lumbar spine and pelvis. If concern for fracture persists, consider MRI or bone scintigraphy. Ordering Provider: Noel Mullen Final Dictated by: MD Shankar Jason Dictated DT/TM: 12/24/2018 2:58 pm Signed by: MD Shankar Jason Signed (Electronic Signature): 12/24/2018 2:58 pm [facility] Comment on above: Order Comment: Order added by [email or web address]. ED Clinical Summaryon 2018 ED Clinical Summary [address] [address] Fax: [phone] PERSON INFORMATION Name: FLOR SEWELL Age: 83 Years : 1935 Sex: Female Language: Zimbabwean PCP: MD Akers Greg Marital Status: Med Service: Emergency Medicine Arrival: 12/23/2018 11:00:00 Visit Reason: Knee pain-swelling; Fall; FELL; LEG AND LEFT FLANK PAIN Acuity: 4 LOS: 000 04:19 Address: [address] [place] [id number] Diagnosis: Displaced transverse fracture of right patella, initial encounter for closed fracture; Unable to ambulate Medications Administered: Medication Dose Route ondansetron 4 mg IV Push iopamidol 75 mL IV Contrast morphine 4 mg IV Push tetanus/diphth/pertu ss (Tdap) adult/adol 0.5 mL IM morphine 4 mg IV Push Radiology Orders: Laboratory Orders: Lab and Rad: Laboratory or Other Results This Visit (last charted value for your 12/23/2018 visit) Hematology 12/23/2018 11:32 AM WBC: 8.2 x1000 -- Normal range between ( 4.8 and 10.8 ) RBC: 4.34 million -- Normal range between ( 3.60 and 5.10 ) Neutro Auto: 54.0 % -- Normal range between ( 43.0 and 77.0 ) Lymph Auto: 33.0 % -- Normal range between ( 14.0 and 47.0 ) [place] Auto: 9.3 % -- Normal range between ( 0.0 and 10.0 ) Basophil Auto: 0.8 % -- Normal range between ( 0.0 and 3.0 ) Baso Absolute: 0.1 x1000 MCV: 88.0 fL -- Normal range between ( 80.0 and 100.0 ) MCHC: 33.4 g/dL -- Normal range between ( 32.0 and 36.0 ) Lymph Absolute: 2.7 x1000 Hct: 38.2 % -- Normal range between ( 33.0 and 45.0 ) [place] Absolute: 0.8 x1000 MCH: 29.4 pg -- Normal range between ( 27.0 and 31.0 ) Neutro Absolute: 4.4 x1000 Hgb: 12.8 g/dL -- Normal range between ( 11.0 and 15.0 ) Platelets: 208 x1000 -- Normal range between ( 144 and 420 ) Eos Absolute: 0.2 x1000 RDW: 14.9 % -- Normal range between ( 11.0 and 15.0 ) Eos, Auto: 2.9 % -- Normal range between ( 0.0 and 6.0 ) NRBC %: 0.0 % Chemistry 12/23/2018 11:32 AM Creatinine Level: 1.01 mg/dL -- Normal range between ( 0.60 and 1.30 ) Estimated Creatinine Clearance: 38.62 mL/min BUN: 17 mg/dL -- Normal range between ( 7 and 18 ) Glucose Level: 91 mg/dL -- Normal range between ( 74 and 106 ) Potassium Level: 4.5 mmol/L -- Normal range between ( 3.5 and 5.1 ) AST: 24 unit/L -- Normal range between ( 15 and 37 ) ALT: 23 unit/L -- Normal range between ( 12 and 78 ) Sodium Level: 138 mmol/L -- Normal range between ( 136 and 145 ) Bilirubin Indirect: TNP mg/dL -- Normal range between ( 0.00 and 1.10 ) Calcium Level: 9.2 mg/dL -- Normal range between ( 8.5 and 10.1 ) Albumin Level: 3.9 g/dL -- Normal range between ( 3.4 and 5.0 ) Protein Total: 7.0 g/dL -- Normal range between ( 6.4 and 8.2 ) Bilirubin Total: 0.6 mg/dL -- Normal range between ( 0.2 and 1.0 ) Alk Phos: 92 unit/L -- Normal range between ( 45 and 117 ) Bilirubin Direct: TNP mg/dL -- Normal range between ( 0.0 and 0.2 ) CO2: 26 mmol/L -- Normal range between ( 21 and 32 ) eGFR Non-AA: 53 mL/min eGFR AA: >60 mL/min Chloride Level: 103 mmol/L -- Normal range between ( 98 and 107 ) Anion Gap: 14 -- Normal range between ( 5 and 15 ) Globulin: 3.1 g/dL -- Normal range between ( 1.4 and 4.7 ) A/G Ratio: 1.26 -- Normal range between ( 1.20 and 1.80 ) Diagnostic Radiology 12/23/2018 12:25 PM XR KNEE COMP RT W/PATELLA VIEWS: XR KNEE COMP RT W/PATELLA VIEWS Medications: PROVIDER INFORMATION Provider Role Assigned Unassigned Greta Dunbarnifer ED Nurse 12/23/2018 11:04:11 DO Mullen William ED Provider 12/23/2018 11:04:19 Attending Physician: DO Mullen William Admit Doc DO Mullen William Consulting Doc VITALS INFORMATION Vital Sign Triage Latest Temp Oral 98.0 Deg F 98.0 Deg F Temp Temporal Temp Intravascular Temp Axillary Temp Rectal 02 Sat 99 % 94 % Respiratory Rate 16 br/min 16 br/min Peripheral Pulse Rate 57 bpm 54 bpm Apical Heart Rate Blood Pressure 183 mmHg / 89 mmHg 175 mmHg / 65 mmHg Allergies No Known Medication Allergies Immunizations tetanus/diphth/pertu ss (Tdap) adult/adol (12/23/2018) DISCHARGE INFORMATION Discharge Disposition: Still a Patient Discharge Location: Discharge Date and Time: ED Checkout Date and Time: 12/23/2018 15:19:00 DEPART REASON INCOMPLETE INFORMATION Depart Action Incomplete Reason Vital Signs and Pain Recently assessed Problems No Problems Documented Smoking Status Never (less than 100 in lifetime) PATIENT EDUCATION INFORMATION Instructions: Follow up: [facility] ED Patient Education Noteon 12-23-2018 ED Patient Education Note Patient Education Instructions Name: FLOR SEWELL Current Date: 12/23/2018 15:19:27 The following sheet(s) are the Patient Education Leaflets for LUCERO FLOR Coello [facility] ED Patient Summaryon 019 ED Patient Summary [facility] [phone] Discharge Instructions (Patient) Name:FLOR SEWELL : 1935 Reason For Visit: Knee pain-swelling; Fall; FELL; LEG AND LEFT FLANK PAIN Final Diagnosis: Displaced transverse fracture of right patella, initial encounter for closed fracture; Unable to ambulate Visit Date: 12/23/2018 11:00:00 [facility] [id number] Primary Care Provider: Name: MD Akers Greg Emergency Department Providers:Primary Physician: DO Mullen William [facility] would like to thank you for allowing us to assist you with your healthcare needs. The following includes patient education materials and information regarding your injury/illness. Follow-up Instructions: You were treated today on an emergency basis; it may be akers to contact your primary care provider to notify them of your visit today. You may have been referred to your regular doctor or a specialist, please follow up as instructed. If your condition worsens or you can't get in to see the doctor, contact the Emergency Department. Patient Education Materials: Allergy Info: No Known Medication Allergies Medication Information: [facility] ED Physicians provided you with a complete list of medications post discharge, if you have been instructed to stop taking a medication please ensure you also follow up with this information to your Primary Care Physician. Unless otherwise noted, patient will continue to take medications as prescribed prior to the Emergency Room visit. Any specific questions regarding your chronic medications and dosages should be discussed with your physician(s) and pharmacist. Major Tests and Procedures: The following procedures and tests were performed during your ED visit. Radiology Orders: Laboratory Orders: Patient Care Orders: Request for Admit Med/Surg, Medicine-General, MD [place], Rohit Coello, 12/23/2018 14:44:00 EDT, 12/23/2018 14:44:00 EDT Comment: General Information We are happy to serve you. The examination and treatment you have received have been on an emergency basis only. It's not intended to be a substitute or replacement for complete medical care. Call the Emergency Department for any questions or concerns at [phone]. Some illnesses get worse even when treated correctly. Others may take more time before the correct diagnosis can be made. If you don't get better, or you get worse, you should return to the Emergency Department or call your doctor. We are very concerned about your general health and safety. When driving or riding in a vehicle, we encourage you to always wear your seatbelt, and if you have an infant or child, always use the appropriate infant/child car seat. Medication Instructions If you need a prescription refill, you must see your doctor. Take all medications only as directed. Do not take a medication you are allergic to. If you have been prescribed new medications check with your pharmacist to make sure there are no problems with the medications you are taking. To help ensure your safety, keep a copy of this discharge instruction to share with your health care provider at your next visit. It contains a copy of your medication list, diagnoses made in our emergency department and information about treatment you received here. Referral Instructions You were treated today on an emergency basis; it may be akers to contact your primary care provider to notify them of your visit today. You may have been referred to your regular doctor or a specialist, please follow up as instructed. If your condition worsens or you can't get in to see the doctor, contact the Emergency Department. Diagnostic Studies If you had a diagnostic study performed, we will notify you of any lab, EKG or X-ray findings that would require a change in treatment. A specialist reviews most diagnostic studies after your visit. Some test results are not available for 24-72 hours. You may need a copy of your x-rays to take to your follow-up doctor. You can arrange to fruit picker a copy of your x-rays by calling [phone]. Case Management A upper caser can help you with follow up visits, referrals, or questions about your care and other needs. You may call [phone] during regular business hours. Many medications can make you feel sleepy, impair your ability to drive, or effect your ability to make good decisions. Some of these medicines can even make you stop breathing when you go to sleep, particularly if several different medicines are combined. For this reason, we ask that you arrange for someone else to give you a ride home, do not operate machinery or make important decisions, and do not take any sleeping pills, pain pills, or drink alcohol for at least 4-6 hours from the time you leave the emergency department. It is also important to know that the use of narcotic medications can be habit forming. I have received this information and my questions have been answered. Patient/Representati ve Signature: ____ Relationship to Patient: Patient Name:FLOR SEWELL Witness Signature: Date:12/23/2018 15:19:26 Normal [facility] ED Pre Arrival Noteon 2018 ED Pre Arrival Note \[id number]\Pre-Arrival Summary Name: gin Acevedo, Current Date: 12/23/2018 11:03:36 EDT Gender: Female Age: 63 Pre-Arrival Type: EMS ETA: 12/23/2018 11:21:00 EDT Cheif Complaint: s/p fall, left flank and right leg pain Room Assignment: A [facility] Emergency Department [address] [place] [address] Repeat Vital Signs: Temp: BP: Pulse: Resp: SPO2: Miscellaneous Issues: Normal [facility] Hep Fnct Pnlon 12-23-2018 Albumin [Mass/Vol] 3.9 g/dL Normal 3.4-5.0 [facility] Comment on above: Performed By: #### 2 680736, 1933146, 2208441, 3264325, [id number] #### [facility] [address] [place] [address] Albumin/Globulin [Mass ratio] 1.26 {ratio} Normal 1.20-1.80 [facility] Comment on above: Performed By: #### 2 829214, 4727602, 8127432, 1198937, [id number] #### [facility] [address] [place] [address] Alk Phos 92 Normal 45-117 [facility] Comment on above: Performed By: #### 2 579256, 0764065, 9637155, 6767007, [id number] #### [facility] [address] [place] [address] ALT [Catalytic activity/Vol] 23 U/L Normal 12-78 [facility] Comment on above: Performed By: #### 2 063559, 5022437, 6205406, 2547684, [id number] #### [facility] [address] [place] [address] AST [Catalytic activity/Vol] 24 U/L Normal 15-37 [facility] Comment on above: Performed By: #### 2 752568, 4654693, 0774407, 9746376, [id number] #### [facility] [address] [place] [address] Bilirubin [Mass/Vol] 0.6 mg/dL Normal 0.2-1.0 [facility] Comment on above: Performed By: #### 2 344835, 8860665, 1451632, 0222048, [id number] #### [facility] [address] [place] [address] Bilirubin Indirect TNP 0.00-1.10 [facility] Comment on above: Performed By: #### 2 304968, 8729332, 2959075, 6272448, [id number] #### [facility] [address] [place] [address] Bilirubin.direct [Mass/Vol] TNP 0.0-0.2 [facility] Comment on above: Performed By: #### 2 881228, 8483755, 9556425, 3043332, [id number] #### [facility] [address] [place] [address] Globulin (S) [Mass/Vol] 3.1 g/dL Normal 1.4-4.7 [facility] Comment on above: Performed By: #### 2 499851, 3744806, 2853457, 1400227, [id number] #### [facility] [address] [place] [address] Protein [Mass/Vol] 7.0 g/dL Normal 6.4-8.2 [facility] Comment on above: Performed By: #### 2 793312, 9366430, 6632724, 1109164, [id number] #### [facility] [address] [place] [address] History and Physicalon 12-23 History and Physical Chief Complaint pt arrives via EMS with the c/o fall. pt states that she tripped on the sidewalk put her arms out to break her fall. c/o left side pain/ right knee pain and bilateral hand pain Denies hitting her head or blood thinners History of Present Illness Flor Sewell is a an 83-year-old female with a known history of hypertension, diffuse multinodular goiter status post thyroidectomy now with hypothyroidism, hyperlipidemia, and gastroesophageal reflux disease. She reports that she was walking her dog at [facility] and was walking across the city street which was uneven. She said she tripped on the uneven pavement and fell on her bent right knee which is found to be fractured at the emergency room. The patient was transferred from [place] emergency room to [facility] for definitive treatment of her transverse patellar fracture. Review of Systems Constitutional: No fevers, chills, sweats, fatigue Eye: No recent visual problems, no eye pain or redness ENMT: No ear pain, nasal congestion, sore throat Respiratory: No shortness of breath, cough Cardiovascular: No Chest pain, palpitations, syncope Chest: Sharp pain in left chest after her fall Gastrointestinal: No nausea, vomiting, diarrhea, heart burn Genitourinary: No hematuria, dysuria [place]/Lymph: Negative for bruising tendency, swollen lymph glands Endocrine: Negative for excessive thirst, excessive hunger Musculoskeletal: No back pain, neck pain, positive right knee pain, denies muscle pain, decreased range of motion Integumentary: No rash, pruritus, lesions Neurologic: No headache, dizziness, fainting Psychiatric: No anxiety, depression Vitals and Physical Exam Vitals Signs and Measurements within 24 hours T: 97.9 ?F (Oral) T: 97.9 ?F (Tympanic) TMIN: 97.9 ?F (Oral) TMAX: 97.9 ?F (Tympanic) HR: 52 (Peripheral) HR: 62 (Monitored) RR: 18 BP: 140/74 SpO2: 99% WT: 64.2 kg (Dosing) BMI: 23.87 Oxygen Information Oxygen Therapy: Room air (12/23/18 18:39:00 EDT) SpO2: 99 % (12/23/18 18:39:00 EDT) Physical Exam General: Alert and oriented, well nourished, no acute distress. Eye: PERRL, EOMI, no scleral icterus or conjunctival injection. HENT: Normocephalic, mucous membranes are pink and moist. No nasal drainage. No erythema, plaque, or ulceration of the mouth. Neck: Supple, trachea midline, non-tender, no carotid bruits, no JVD, no lymphadenopathy. Lungs: Clear to auscultation bilaterally, no dullness to percussion, non-labored respiration, no prolonged expiration. Heart: Normal rate, regular rhythm, no murmur, gallop or rub. Abdomen: Soft, non-tender, non-distended, normal bowel sounds, no masses. Lymphatic: No inguinal or axillary lymphadenopathy Musculoskeletal: No joint effusions or redness. No muscle tenderness Periphery: No clubbing, cyanosis, right knee Swollen and tender to palpation. Skin: Skin is warm, dry and pink, abrasions on DIP x4 in the right hand patient Neurologic: Awake, alert, and oriented X3, CN II-XII intact. Normal coordination. Strength is 5/5 in the major muscle groups of the upper and lower extremities. No deficits distal to fractured patella on the right leg Psychiatric: Cooperative, appropriate mood and affect. Assessment/Plan 1. Displaced transverse fracture of right patella, initial encounter for closed fracture Consult orthopedic surgery. Pain control by IV morphine sulfate and immobilization. No evidence of compartment syndrome. 2. Benign essential tremor Patient has been treated with propranolol and was provided with ropinirole about 3 years ago. She said that never really helped and we will remove that from her med list. 3. Unable to ambulate Patient's pain as well as her right knee immobilization prevents any kind of ambulation. We will consult physical therapy after the patient has reparative surgery. 4. Acquired hypothyroidism We will check a TSH to assure the patient's dosing of levothyroxine is appropriate. Adjust dosing as needed. 5. Knee pain-swelling IV morphine sulfate for pain control. Tylenol be available as well. 6. Gastroesophageal reflux disease Continue proton pump inhibitor as is prescribed at home. 7. Hyperlipidemia, mixed Patient's statin will be continued without any changes. Orders: acetaminophen, 650 mg, Oral, Tab, q4h, PRN other (see comment), First Dose: 12/23/2018 16:47:00 EDT, Routine aspirin, 81 mg, Oral, Tab-Chew, Daily, First Dose: 12/24/2018 09:00:00 EDT atorvastatin, 20 mg, Oral, Tab, Daily, First Dose: 12/23/2018 21:00:00 EDT cholecalciferol, 2,000 IntlUnit, Oral, Tab, Daily, First Dose: 12/24/2018 09:00:00 EDT cyanocobalamin, 1,000 mcg, Oral, Tab, Daily, First Dose: 12/24/2018 09:00:00 EDT enoxaparin, 40 mg, Subcutaneous, Injection, Daily, First Dose: 12/23/2018 16:47:00 EDT levothyroxine, 88 mcg, Oral, Tab, Daily, First Dose: 12/24/2018 07:00:00 EDT losartan, 100 mg, Oral, Tab, qPM, First Dose: 12/23/2018 19:31:00 EDT morphine, 4 mg, IV Push, Soln-IV, every 3 hr for 4 days, PRN pain, severe (7-10), First Dose: 12/23/2018 16:47:00 EDT, Stop Date: 12/27/2018 16:46:00 EDT morphine, 2 mg, IV Push, Soln-IV, every 2 hr for 4 days, PRN pain, severe (7-10), First Dose: 12/23/2018 16:47:00 EDT, Stop Date: 12/27/2018 16:46:00 EDT pantoprazole, 20 mg, Oral, Tab-DR, Daily, First Dose: 12/24/2018 09:00:00 EDT propranolol, 60 mg, Oral, Cap-ER, Daily, First Dose: 12/24/2018 09:00:00 EDT rOPINIRole, 1 mg, Oral, Tab, qPM, First Dose: 12/23/2018 19:31:00 EDT Below the Knee Inter Pneumatic Compression Consult to Hospitalist Consult to Orthopedics Height/Length Notify Treating Provider Vital Signs Partial Thromboplastin Time Patient Isolation Peripheral IV Insertion Physical Therapy Evaluation and Treatment Acute Prothrombin Time and INR PSO Place in Observation Regular Diet Resuscitation Status Up with Assistance Vital Signs Problem List/Past Medical History Acquired hypothyroidism Benign essential hypertension Benign essential tremor Gastroesophageal reflux disease Goiter, toxic, multinodular Hyperlipidemia, mixed Historical No historical problems Procedure/Surgical History APPENDECTOMY, Bladder, Eye, REMOVAL OF THYROID. Medications Inpatient acetaminophen, 650 mg, 2 tab, Oral, q4h, PRN aspirin, 81 mg, 1 tab, Oral, Daily atorvastatin, 20 mg, 1 tab, Oral, Daily levothyroxine, 88 mcg, 1 tab, Oral, Daily losartan, 100 mg, 1 tab, Oral, qPM Lovenox, 40 mg, 0.4 mL, Subcutaneous, Daily morphine preservative-free, 4 mg, 1 mL, IV Push, every 3 hr, PRN morphine preservative-free, 2 mg, 0.5 mL, IV Push, every 2 hr, PRN pantoprazole, 20 mg, 1 tab, Oral, Daily propranolol, 60 mg, 1 cap, Oral, Daily rOPINIRole, 1 mg, 1 tab, Oral, qPM Vitamin B12, 1000 mcg, 1 tab, Oral, Daily Vitamin D3, 2000 IntlUnit, 2 tab, Oral, Daily Home aspirin 81 mg oral delayed release tablet, 81 mg, 1 tab, Oral, Daily atorvastatin 20 mg oral tablet, 20 mg, 1 tab, Oral, Daily glucosamine, Oral levothyroxine, 88 mcg, Oral, Daily losartan 100 mg oral tablet, 100 mg, 1 tab, Oral, qPM multivitamin adult, oral tablet, 1 tab, Oral, Daily pantoprazole 20 mg oral delayed release tablet, 20 mg, 1 tab, Oral, Daily propranoloL 60 mg oral tablet, 60 mg, 1 tab, Oral, Daily rOPINIRole 1 mg oral tablet, 1 mg, 1 tab, Oral, qPM Vitamin B12, 1000 mcg, Oral, Daily Vitamin D3 Allergies No Known Medication Allergies Social History Alcohol Denies use Employment/School Retired Home/Environment Lives with Alone. Nutrition/Health Diet: Regular. Substance Use Denies Tobacco Smoking tobacco use: Never (less than 100 in lifetime). Family History Cancer: Sibling. Diabetes: Father. Heart attack: Sibling. Code Status Resuscitation Status - Ordered -- 12/23/2018 16:47:00 EDT, Full Code Lab Results Event Name Event Result Date/Time WBC 8.2 x1000 12/23/18 11:32:00 EDT RBC 4.34 million 12/23/18 11:32:00 EDT Hgb 12.8 g/dL 12/23/18 11:32:00 EDT Hct 38.2 % 12/23/18 11:32:00 EDT Platelets 208 x1000 12/23/18 11:32:00 EDT Glucose Level 91 mg/dL 12/23/18 11:32:00 EDT BUN 17 mg/dL 12/23/18 11:32:00 EDT Creatinine Level 1.01 mg/dL 12/23/18 11:32:00 EDT Estimated Creatinine Clearance 38.62 mL/min 12/23/18 19:01:00 EDT Estimated Creatinine Clearance 38.62 mL/min 12/23/18 17:45:00 EDT Estimated Creatinine Clearance 38.62 mL/min 12/23/18 11:32:00 EDT eGFR AA >60 12/23/18 11:32:00 EDT eGFR Non-AA 53 mL/min 12/23/18 11:32:00 EDT Sodium Level 138 mmol/L 12/23/18 11:32:00 EDT Potassium Level 4.5 mmol/L 12/23/18 11:32:00 EDT Chloride Level 103 mmol/L 12/23/18 11:32:00 EDT CO2 26 mmol/L 12/23/18 11:32:00 EDT Anion Gap 14 12/23/18 11:32:00 EDT Calcium Level 9.2 mg/dL 12/23/18 11:32:00 EDT Alk Phos 92 unit/L 12/23/18 11:32:00 EDT ALT 23 unit/L 12/23/18 11:32:00 EDT AST 24 unit/L 12/23/18 11:32:00 EDT Protein Total 7 g/dL 12/23/18 11:32:00 EDT Albumin Level 3.9 g/dL 12/23/18 11:32:00 EDT Globulin 3.1 g/dL 12/23/18 11:32:00 EDT A/G Ratio 1.26 12/23/18 11:32:00 EDT Bilirubin Total 0.6 mg/dL 12/23/18 11:32:00 EDT Bilirubin Direct TNP 12/23/18 11:32:00 EDT Bilirubin Indirect TNP 12/23/18 11:32:[address] Pelvis w/o Contrast 12/23/18 15:03:22 IMPRESSION: No acute osseous abnormality. Scattered degenerative changes about the lower lumbar spine and pelvis. If concern for fracture persists, consider MRI or bone scintigraphy. Ordering Provider: Noel Mullen Signed By: MD Shankar Jason XR Knee 1 or 2 Views Right 12/23/18 13:05:36 IMPRESSION: Acute mildly displaced traumatic transverse fracture of the mid patella with associated moderate to large joint effusion. Ordering Provider: Noel Mullen Signed By: MD Grijalva Dipika M CT Abdomen and Pelvis w/ Contrast 12/23/18 15:41:37 IMPRESSION: No acute abnormality in the abdomen or pelvis. Ordering Provider: Noel Mullen Signed By: MD Tyler, Americo XR KNEE COMP RT W/PATELLA VIEWS POSITIVE: Patella fracture Read By: DO Mullen William 12/23/18 12:37:29 IMPRESSION: Acute mildly displaced traumatic transverse fracture of the mid patella with associated moderate to large joint effusion. Ordering Provider: Noel Mullen Signed By: MD Grijalva Dipika M 12/23/18 12:48:29 IMPRESSION: Acute mildly displaced traumatic transverse fracture of the mid patella with associated moderate to large joint effusion. Ordering Provider: Noel Mullen Signed By: MD Grijalva Dipika M Electronically Signed on 12/23/18 20:30 MD London, Rhoit Coello [facility] Orthopedic Consultationon Orthopedic Consultation Chief Complaint pt arrives via EMS with the c/o fall. pt states that she tripped on the sidewalk put her arms out to break her fall. c/o left side pain/ right knee pain and bilateral hand pain Denies hitting her head or blood thinners Reason for Consultation Right knee injury History of Present Illness Patient is a very pleasant 83-year-old female who was walking her dog when she fell the dog part landing directly on her right knee. Patient noted immediate pain and swelling right knee inability to bear weight. Patient was transferred to [facility] for further evaluation and treatment. Patient denies any previous right knee injury or surgery. She denies any numbness or tingling to right lower extremity. Review of Systems Constitutional: [No fevers, chills, sweats] Eye: [No recent visual problems] ENMT: [No ear pain, nasal congestion, sore throat] Respiratory: [No shortness of breath, cough] Cardiovascular: [No Chest pain, palpitations, syncope] Gastrointestinal: [No nausea, vomiting, diarrhea] Genitourinary: [No hematuria] Physical Exam General: [Alert and oriented, well nourished, no acute distress]. Eye: [PERRL, EOMI, normal conjunctiva]. HENT: [Normocephalic, clear tympanic membranes, normal hearing, moist oral mucosa, no scleral icterus, no sinus tenderness]. Neck: [Supple, non-tender, no carotid bruits, no JVD, no lymphadenopathy]. Lungs: [Clear to auscultation and percussion, non-labored respiration]. Heart: [Normal rate, regular rhythm, no murmur, gallop or edema]. Abdomen: [Soft, non-tender, non-distended, normal bowel sounds, no masses]. Musculoskeletal: Swelling and ecchymosis. Right knee show significant +2-3 effusion is noted. Inability to straight leg raise is noted. Right lower extremity is neurocirculatory intact. No discomfort with hip logroll. No test palpation of the right ankle or foot. Show displaced transverse right patella fracture. Skin: [Skin is warm, dry and pink, no rashes or lesions]. Neurologic: [Awake, alert, and oriented X3, CN II-XII intact]. Vitals & Measurements Vitals Signs and Measurements within 24 hours T: 98.6 ?F (Oral) T: 97.6 ?F (Temporal Artery) T: 97.5 ?F (Tympanic) TMIN: 97.5 ?F (Tympanic) TMAX: 98.6 ?F (Oral) HR: 71 (Peripheral) HR: 70 (Monitored) RR: 12 BP: 196/88 SpO2: 95% WT: 64.2 kg (Dosing) BMI: 23.87 Oxygen Information Oxygen Flow Rate: 4 L/min (12/24/18 09:16:00 EDT) Oxygen Therapy: Nasal cannula (12/24/18 09:16:00 EDT) SpO2: 95 % (12/24/18 09:16:00 EDT) Assessment/Plan 1. Displaced transverse fracture of right patella, initial encounter for closed fracture Plan for ORIF right patella upon OR availability. Risk and benefits were discussed in detail with patient wishes to proceed. 2. Benign essential tremor 3. Unable to ambulate 4. Acquired hypothyroidism 5. Gastroesophageal reflux disease 6. Hyperlipidemia, mixed Orders: NPO at Midnight Weight Bearing Status, Lower Extremity XR C-Arm Tracking CDM Problem List/Past Medical History Acquired hypothyroidism Benign essential hypertension Benign essential tremor Gastroesophageal reflux disease Goiter, toxic, multinodular Hyperlipidemia, mixed Historical No historical problems Procedure/Surgical History OPEN REDUCTION INTERNAL FIXATION PATELLA (Right) (12/24/2018), APPENDECTOMY, Bladder, Eye, REMOVAL OF THYROID. Medications Inpatient acetaminophen, 650 mg, 2 tab, Oral, q4h, PRN aspirin, 81 mg, 1 tab, Oral, Daily atorvastatin, 20 mg, 1 tab, Oral, Daily atropine, 0.4 mg, 4 mL, IV Push, Once, PRN Dilaudid, 0.2 mg, 0.2 mL, IV Push, every 5 min, PRN lactated ringer's drip 1,000 mL, 1000 mL, IV infusion levothyroxine, 88 mcg, 1 tab, Oral, Daily losartan, 100 mg, 1 tab, Oral, qPM Lovenox, 40 mg, 0.4 mL, Subcutaneous, Daily morphine preservative-free, 4 mg, 1 mL, IV Push, every 3 hr, PRN morphine preservative-free, 2 mg, 0.5 mL, IV Push, every 2 hr, PRN pantoprazole, 20 mg, 1 tab, Oral, Daily promethazine, 6.25 mg, 0.25 mL, IV Push, Once, PRN propranolol, 60 mg, 1 cap, Oral, Daily Vitamin B12, 1000 mcg, 1 tab, Oral, Daily Vitamin D3, 2000 IntlUnit, 2 tab, Oral, Daily Zofran, 4 mg, 2 mL, IV Push, Once, PRN Home aspirin 81 mg oral delayed release tablet, 81 mg, 1 tab, Oral, Daily atorvastatin 20 mg oral tablet, 20 mg, 1 tab, Oral, Daily glucosamine, Oral levothyroxine, 88 mcg, Oral, Daily losartan 100 mg oral tablet, 100 mg, 1 tab, Oral, qPM multivitamin adult, oral tablet, 1 tab, Oral, Daily pantoprazole 20 mg oral delayed release tablet, 20 mg, 1 tab, Oral, Daily propranoloL 60 mg oral tablet, 60 mg, 1 tab, Oral, Daily rOPINIRole 1 mg oral tablet, 1 mg, 1 tab, Oral, qPM Vitamin B12, 1000 mcg, Oral, Daily Vitamin D3 Allergies No Known Medication Allergies Social History Alcohol Denies use Employment/School Retired Home/Environment Lives with Alone. Nutrition/Health Diet: Regular. Substance Use Denies Tobacco Smoking tobacco use: Never (less than 100 in lifetime). Family History Cancer: Sibling. Diabetes: Father. Heart attack: Sibling. Code Status Resuscitation Status - Ordered -- 12/23/2018 16:47:00 EDT, Full Code Lab Results Event Name Event Result Date/Time WBC 8.2 x1000 12/23/18 11:32:00 EDT RBC 4.34 million 12/23/18 11:32:00 EDT Hgb 12.8 g/dL 12/23/18 11:32:00 EDT Hct 38.2 % 12/23/18 11:32:00 EDT Platelets 208 x1000 12/23/18 11:32:00 EDT Glucose Level 91 mg/dL 12/23/18 11:32:00 EDT BUN 17 mg/dL 12/23/18 11:32:00 EDT Creatinine Level 1.01 mg/dL 12/23/18 11:32:00 EDT Estimated Creatinine Clearance 38.62 mL/min 12/24/18 07:27:00 EDT Estimated Creatinine Clearance 38.62 mL/min 12/23/18 19:01:00 EDT Estimated Creatinine Clearance 38.62 mL/min 12/23/18 17:45:00 EDT Estimated Creatinine Clearance 38.62 mL/min 12/23/18 11:32:00 EDT eGFR AA >60 12/23/18 11:32:00 EDT eGFR Non-AA 53 mL/min 12/23/18 11:32:00 EDT Sodium Level 138 mmol/L 12/23/18 11:32:00 EDT Potassium Level 4.5 mmol/L 12/23/18 11:32:00 EDT Chloride Level 103 mmol/L 12/23/18 11:32:00 EDT CO2 26 mmol/L 12/23/18 11:32:00 EDT Anion Gap 14 12/23/18 11:32:00 EDT Calcium Level 9.2 mg/dL 12/23/18 11:32:00 EDT Alk Phos 92 unit/L 12/23/18 11:32:00 EDT ALT 23 unit/L 12/23/18 11:32:00 EDT AST 24 unit/L 12/23/18 11:32:00 EDT Protein Total 7 g/dL 12/23/18 11:32:00 EDT Albumin Level 3.9 g/dL 12/23/18 11:32:00 EDT Globulin 3.1 g/dL 12/23/18 11:32:00 EDT A/G Ratio 1.26 12/23/18 11:32:00 EDT Bilirubin Total 0.6 mg/dL 12/23/18 11:32:00 EDT Bilirubin Direct TNP 12/23/18 11:32:00 EDT Bilirubin Indirect TNP 12/23/18 11:32:00 EDT T4 Free 1.17 ng/dL 12/24/18 06:36:00 EDT TSH 10.6 uIU/ml High 12/24/18 06:36:00 EDT Electronically Signed on 12/24/18 09:34 MD Ankita, Rhys Fried [facility] XR Knee 1 or 2 Views Righton 12-23-2018 XR Knee 1 or 2 Views Right EXAMINATION: TWO XRAY VIEWS OF THE RIGHT KNEE 12/23/2018 12:25 pm COMPARISON: None. HISTORY: ORDERING SYSTEM PROVIDED HISTORY: Pain, post trauma;Pain (please specify) TECHNOLOGIST PROVIDED HISTORY: Tech Provided Reason for Exam: Pain Injury/Trauma or Illness: Injury/Trauma Type of Encounter: Initial Relevant Medical/Surgical History: pt arrives via EMS with the c/o fall. pt states that she tripped on the sidewalk put her arms out to break her fall. c/o left side pain/ right knee pain and bilateral hand pain Denies hitting her head or blood thinners Acuity: acute FINDINGS: Moderate suprapatellar joint effusion. There is an acute transverse mildly displaced fracture of the mid patella. There is previous patellar soft tissue swelling. No other acute fracture or dislocation. Joint spaces and alignment are otherwise maintained. IMPRESSION: Acute mildly displaced traumatic transverse fracture of the mid patella with associated moderate to large joint effusion. Ordering Provider: Noel Mullen Final Dictated by: MD Grijalva Dipika M Dictated DT/TM: 12/25/2018 4:57 pm Signed by: MD Grijalva Dipika M Signed (Electronic Signature): 12/25/2018 4:57 pm [facility] XR Knee Comp Rt w/Patella Vi ewson 12-23-2018 XR Knee Comp Rt w/Patella Views ADDENDUM: Exam portion of the study should read: 2 x-ray views of the right knee. EXAMINATION: THREE XRAY VIEWS OF THE RIGHT KNEE 12/23/2018 12:25 pm COMPARISON: None. HISTORY: ORDERING SYSTEM PROVIDED HISTORY: Pain, post trauma;Pain (please specify) TECHNOLOGIST PROVIDED HISTORY: Tech Provided Reason for Exam: Pain Injury/Trauma or Illness: Injury/Trauma Type of Encounter: Initial Relevant Medical/Surgical History: pt arrives via EMS with the c/o fall. pt states that she tripped on the sidewalk put her arms out to break her fall. c/o left side pain/ right knee pain and bilateral hand pain Denies hitting her head or blood thinners Acuity: acute FINDINGS: Moderate suprapatellar joint effusion. There is an acute transverse mildly displaced fracture of the mid patella. There is previous patellar soft tissue swelling. No other acute fracture or dislocation. Joint spaces and alignment are otherwise maintained. IMPRESSION: Acute mildly displaced traumatic transverse fracture of the mid patella with associated moderate to large joint effusion. Ordering Provider: Noel Mullen Final Dictated by: MD Grijalva Dipika M Dictated DT/TM: 12/23/2018 12:48 pm Signed by: MD Grijalva Dipika M Signed (Electronic Signature): 12/23/2018 12:48 pm EXAMINATION: THREE XRAY VIEWS OF THE RIGHT KNEE 12/23/2018 12:25 pm COMPARISON: None. HISTORY: ORDERING SYSTEM PROVIDED HISTORY: Pain, post trauma;Pain (please specify) TECHNOLOGIST PROVIDED HISTORY: Tech Provided Reason for Exam: Pain Injury/Trauma or Illness: Injury/Trauma Type of Encounter: Initial Relevant Medical/Surgical History: pt arrives via EMS with the c/o fall. pt states that she tripped on the sidewalk put her arms out to break her fall. c/o left side pain/ right knee pain and bilateral hand pain Denies hitting her head or blood thinners Acuity: acute FINDINGS: Moderate suprapatellar joint effusion. There is an acute transverse mildly displaced fracture of the mid patella. There is previous patellar soft tissue swelling. No other acute fracture or dislocation. Joint spaces and alignment are otherwise maintained. IMPRESSION: Acute mildly displaced traumatic transverse fracture of the mid patella with associated moderate to large joint effusion. Ordering Provider: Noel Mullen Final Dictated by: MD Grijalva Dipika M Dictated DT/TM: 12/23/2018 12:37 pm Signed by: MD Grijalva Dipika M Signed (Electronic Signature): 12/23/2018 12:37 pm Normal [facility] eGFRon 12-23-2018 GFR/1.73 sq M predicted among non-blacks MDRD (S/P/Bld) [Vol rate/Area] mL/min/{1.73_m2} [facility] Comment on above: Result Comment: AfAm = UNITS=mL/min/1.73 m2 Normal Reference Ranges is >60. Persistent reduction of eGFR (<60) for 3 months or more defines chronic kidney disease, while eGFR <15 indicates renal failure. Patients with eGFR values >= 60 may also have CKD if evidence of persistent proteinuria is present. Performed By: #### [id number] #### [facility] [address] [place] [address] GFR/1.73 sq M predicted among non-blacks MDRD (S/P/Bld) [Vol rate/Area] 53 mL/min/{1.73_m2} [facility] Comment on above: Result Comment: Norm al Reference Range is >60. Performed By: #### 2 [id number] #### [facility] [address] [place] [address] Culture, urine Bacteria identified Cx Nom (U) Escherichia coli [facility] Work Phone: Bacteria identified Cx Nom (U) Presumptive E. coli [facility] Work Phone: Encounters Encounter Date Encounter Type Care Provider Facility Start: 06-02-2024 End: 06-02-[address] Andrew Carter MD Work Phone: [facility] Work Phone: Start: 06-02-2024 End: 06-02-[address] Andrew Carter MD -Laboratory Work Phone: Start: 06-02-2024 End: 06-02-2024 ambulatory [facility] Facility:[facility] Start: 05-31-2024 End: 05-31-[address] Andrew Carter MD Work Phone: [facility] Work Phone: Start: 05-31-2024 End: 05-31-[address] Andrew Carter MD -Laboratory, Phy Office 3rd Ksr Start: 05-31-2024 End: 05-31-2024 ambulatory [facility] Facility:[facility] Start: 11-30-2023 End: 11-30-2023 ambulatory [facility] Facility:[facility] Start: 07-19-2023 ambulatory [facility] Facility:[facility] Start: 04-28-2023 End: 04-28-[address] [facility] Work Phone: Start: 04-28-2023 End: 04-28-2023 Patient encounter procedure [facility]-Radiology, [facility] Work Phone: Start: 11-25-2022 End: 11-25-[address] [facility] Work Phone: Start: 11-25-2022 End: 11-25-2022 Patient encounter procedure [facility]-Laboratory, Phy Office 3rd Flr Start: 08-20-2022 End: 08-20-[facility]22 [facility] Start: 07-14-2022 End: 07-14-[address] [facility] Work Phone: Start: 07-14-2022 End: 07-14-2022 Patient encounter procedure [facility]-Laboratory, Phy Office 3rd Flr Start: 07-10-2022 End: 07-10-2022 Patient encounter procedure [facility]-Pulmonary Services/Neurology Start: 07-02-2022 End: 07-02-[address] [facility] Work Phone: Start: 07-02-2022 End: 07-02-2022 Patient encounter procedure [facility]-Laboratory Start: 05-22-2022 End: 05-22-[address] [facility] Work Phone: Start: 05-22-2022 End: 05-22-2022 Patient encounter procedure [facility]-Laboratory Start: 05-20-2022 End: 05-20-[address] [facility] Work Phone: Start: 05-20-2022 End: 05-20-2022 [facility] Start: 01-07-2022 End: 01-07-[address] [facility] Work Phone: Start: 01-07-2022 End: 01-07-2022 Patient encounter procedure [facility]-Laboratory, Phy Office 3rd Flr Start: 11-19-2021 End: 11-19-[address] [facility] Work Phone: Start: 11-19-2021 End: 11-19-2021 Patient encounter procedure [facility]-Laboratory, y Office 3rd Flr Start: 09-15-2021 End: 09-15-2021 Patient encounter procedure [facility]-Radiology, [facility] Start: 09-05-2021 End: 09-05-2021 Patient encounter procedure [facility]-Laboratory Start: 06-26-2021 End: 06-26-2021 Patient encounter procedure [facility]Laboratory Start: 06-12-2021 End: 06-12-2021 Patient encounter procedure [facility]-Laboratory, Specimen Start: 05-13-2021 End: 05-13-2021 Patient encounter procedure [facility]-Radiology, [facility] Start: 07-24-2020 End: 07-24-2020 Nursing evaluation of patient and report Covid Vaccine [facility] COVID Vaccine Comment on above: Arrived Procedures Date Procedure Procedure Detail Performing Clinician Start: 05-31-2024 SARS-CoV-2, Influenz a & RSV (PCR) Dr. Andrew Carter MD Work Phone: Start: 04-28-2023 Plain x-ray of pelvi s and lower extremity Start: 04-28-2023 Radiologic examinati on of knee Start: 04-28-2023 X-ray of lumbosacral spine Start: 07-14-2022 Diagnostic radiograp hy of abdomen, decubitus and erect Start: 09-15-2021 Radiography of esophagus Start: 06-12-2021 Urine culture Start: 05-13-2021 X-ray of both feet Start: 07-24-2020 MODERNA COVID-19 VACCINE Claire Cash Work Phone: Bacteria identified in Urine by Culture Influenza Types A,B Direct FA (CJ) Respiratory syncytia l virus antigen assay Urine culture Plan of Treatment Date Care Activity Detail Author Start: 12-04-2020 Influenza vaccination INFLUENZA (Sea son Ended) [facility] Start: 08-21-2020 COVID-19 VACCINE (2 - Moderna 2-dose series) COVID-19 VACCINE (2 - Moderna 2-dose series) [facility] Start: 08-21-2020 MODERNA SARS-COV-2 V ACCINE 2ND DOSE APPT MODERNA SARS-COV-2 VACCINE 2ND DOSE APPT Procedures Routine Expected: 08/21/2020 [facility] Comment on above: Expected: 08/21/2020 Start: 2002 ADVANCE DIRECTIVE DISCUSSION ADVANCE DIRECTIVE DISCUSSION [facility] Start: 2002 BONE DENSITY BONE DENSITY [facility] Start: 2002 PNEUMOVAX AGE 65 AND OVER WITH 5YR LOOKBACK (#1) PNEUMOVAX AGE 65 AND OVER WITH 5YR LOOKBACK (#1) [facility] Start: 10-29-1987 SHINGRIX VACCINE (1 of 2) DELGADO GRIX VACCINE (1 of 2) [facility] Start: 1982 DIABETES SCREEN DIABETES SCREEN [facility] Start: 1956 Urine microalbumin profile DTAP,TDAP ,TD (1 - Tdap) [facility] Immunizations Immunization Date Immunization Notes Care Provider Fa nickty 07-24-2020 COVID-19 vaccine (MODERNA) Covid Bat h [facility] Payers Date Payer Category Payer Self-pay [id number] 2023 Unknown [id number] 2014 Private Health Insurance [facility] CHOICE PLUS [id number] 2014-Present O [id number] Unknown [id number] Unknown [id number] Unknown [id number] Unknown [id number] Social History Date Type Detail Facility Tobacco smoking stat [facility] Unknown if ever smoked [facility] Start: 1935 Sex Assigned At Not on file [facility] Exposure to SARS-CoV -2 (event) Not sure [facility] Start: 1935 Sex Assigned At Female W [facility] Tobacco smoking stat [facility] Unknown if ever smoked [facility] Work Phone: Start: 06-15-2024 End: 06-15-2024 Sex Female (finding) [facility] Evaluation note Note Date & Type Note Facility Evaluation note No assessment information availa ble [facility] Work Phone: Reason for referral (narrative) Note Date & Type Note Facility Reason for referral (narrative) No reason for referral information available [facility] Work Phone: Summary Purpose Family History No Family History [...] being used t (more content not included)... Chief Complaint and Reason for Visit Chief Complaint FOOT PAIN Chief Complaint ORDERS FOR GRICEL ALSO ?-CALL OFFICE BENIGN ESOPHAGEAL STRICTURE Chief Complaint BENIGN ESOPHAGEAL ST RICTURE Chief Complaint VIRAL SYMPTOMS Additional Source Comments INFORMATION SOURCE (unrecogn ized section and content) DATE CREATED AUTHOR 04/28/2019 [facility] DATE CREATED AUTHOR AUTHOR'S ORGANIZ ATION 07/16/[address] [facility] DATE CREATED AUTHOR AUTHOR'S ORGANIZ ATION 07/29/2020 [facility] DATE CREATED AUTHOR AUTHOR'S ORGANIZ ATION 06/17/2024 [facility] Source Comments (unrecognize d section and content) In the event this informatio n is protected by the Federal Confidentiality of Alcohol and Drug Abuse Patient Records regulations: The Federal rules restrict any use of the information to criminally investigate or prosecute any alcohol or drug abuse patient.[facility] Goals (unrecognized section and content) Goals may be documented in a n alternate sectionGoals may be documented in an alternate sectionGoals may be documented in an alternate sectionGoals may be documented in an alternate sectionGoals may be documented in an alternate sectionGoals may be documented in an alternate sectionGoals may be documented in an alternate sectionGoals may be documented in an alternate sectionGoals may be documented in an alternate sectionGoals may be documented in an alternate sectionGoals may be documented in an alternate sectionGoals may be documented in an alternate section Care Teams (unrecognized sec tion and content) Team Status: Active Member Role Status Dates Dr. Andrew Carter MD Primary Care Provider Active Team Status: Inactive Member Role Status Dates Dr. Andrew Carter MD Primary Care Provider Active Andrew Carter MD Attending Provider Active Team Status: Active Member Role Status Dates Dr. Andrew Carter MD Primary Care Provi willy, Attending Provider, Referring Provider Active Team Status: Inactive Member Role Status Dates Dr. Andrew Carter MD Primary Care Provi willy, Attending Provider, Referring Provider Active Team Status: Inactive Member Role Status Dates Dr. Andrew Carter MD Primary Care Provider Active Andrew SCHWARTZ MD Attending Provider Active Team Status: Inactive Member Role Status Dates Dr. Andrew Carter MD Primary Care Provider, Attending Provider Active Team Status: Inactive Member Role Status Dates Dr. Andrew Carter MD Primary Care Provider Active Start: May 31, 2024 End: May 31, 2024 Dr. Andrew Carter MD Attending Provider Active Start: May 31, 2024 End: May 31, 2024 Team Status: Active Member Role Status Dates Dr. Andrew Carter MD Primary Care Provider Active Start: June 02, 2024 Dr. Andrew Carter MD Attending Provider Active Start: June 02, 2024 Dr. Andrew Carter MD Referring Provider Active Start: June 02, 2024 Team Status: Inactive Member Role Status Dates Dr. Andrew Carter MD Primary Care Provider Active Start: June 02, 2024 End: June 02, 2024 Dr. Andrew Carter MD Attending Provider Active Start: June 02, 2024 End: June 02, 2024 Dr. Andrew Carter MD Referring Provider Active Start: June 02, 2024 End: June 02, 2024 FOR RECORDS PERTAINING TO PATIENTS WHO ARE [...] BE BASED ON THE PRIMARY CLINICAL RECORDS. [facility] [employer] provides no warranty or guarantee of the accuracy or completeness of information in this document.
[2024-11-30 21:03] LABS: Xtra Tube Kwok EXTRA TUBE
== END | disposition home or self-care (01) ==
LOC: POLAB3 13:00
PROVIDERS: PCP Family Medicine Geriatric Medicine; Visit Provider Family Medicine Geriatric Medicine
DX: E78.5 Hyperlipidemia, unspecified (principal); E03.9 Hypothyroidism, unspecified; E55.9 Vitamin D deficiency, unspecified; I10 Essential (primary) hypertension
CPT/HCPCS: 36415; 80053; 80061; 82306; 84443; 85025